=== PATIENT | female | born 1955 | race Caucasian/White ===

== ENCOUNTER 2017-02-14 12:28 | Inpatient (IN) | payer MEDICARE, BC ==
[2017-02-14] MEDS ORDERED: SODIUM CHLORIDE 0.9% 1,000 ML IV STA (12:52)
[2017-02-14] MEDS ORDERED: SODIUM CHLORIDE 0.9% 500 ML IV STA (12:52)
--- NOTE | 2017-02-14 13:21 | ED ---
General Adult HPI - General Chief complaint: Neuro Symptoms/Deficit Stated complaint: Slurred Speech Time Seen by Provider: 02/14/17 12:34 Source: EMS, RN notes reviewed, old records reviewed Mode of arrival: EMS Limitations: no limitations - History of Present Illness Initial comments: 61-year-old female to the ER for evaluation. This patient presents today for evaluation regarding slurred speech. Patient has medical history of seizure disorder and hypertension. Patient has not been feeling well all week denies fever no nausea or vomiting but patient has not been acting herself per staff of assisted living that she lives in. They stated patient had slurred speech and is near syncopal episode today and has had multiple episodes during the past week of falls. Patient denies any injury or trauma from falls. Denies any pain. Patient stated this point her slurred speech seems to be improved. Patient denies any complaints no recent change in medications - Related Data Home Medications Medication Instructions Recorded Confirmed Black Cohosh 160 mg PO DAILY 02/14/17 02/14/17 Cholecalciferol (Vitamin D3) 2,000 unit PO DAILY 02/14/17 02/14/17 [Vitamin D3] Clopidogrel Bisulfate [Plavix] 75 mg PO DAILY 02/14/17 02/14/17 FLUoxetine HCL [PROzac] 40 mg PO DAILY 02/14/17 02/14/17 Furosemide [Lasix] 40 mg PO DAILY 02/14/17 02/14/17 Hydrocodone/Acetaminophen [[place] 1 tab PO TID PRN 02/14/17 02/14/17 7.5-325] Isosorbide Mononitrate ER [Imdur] 30 mg PO DAILY 02/14/17 02/14/17 Lisinopril [Prinivil] 10 mg PO DAILY 02/14/17 02/14/17 Potassium Chloride [Klor-Con 20] 20 meq PO DAILY 02/14/17 02/14/17 QUEtiapine [SEROquel] 100 mg PO HS 02/14/17 02/14/17 Simvastatin [Zocor] 80 mg PO HS 02/14/17 02/14/17 Solifenacin Succinate [Vesicare] 10 mg PO DAILY 02/14/17 02/14/17 carBAMazepine [TEGretol] 300 mg PO TID 02/14/17 02/14/17 risperiDONE [RisperDAL] 2 mg PO BID 02/14/17 02/14/17 Allergies Allergy/AdvReac Type Severity Reaction Status Date / Time grapefruit AdvReac Itching Verified 02/14/17 13:41 Penicillins AdvReac Itching Verified 02/14/17 13:41 Review of Systems ROS Statement: Those systems with pertinent positive or pertinent negative responses have been documented in the HPI. ROS Other: All systems not noted in ROS Statement are negative. Past Medical History Past Medical History: Hypertension, Seizure Disorder History of Any Multi-Drug Resistant Organisms: None Reported Past Surgical History: No Surgical Hx Reported Past Psychological History: Bipolar, Depression, Schizophrenia Smoking Status: Current every day smoker Past Alcohol Use History: None Reported Past Drug Use History: None Reported General Exam - General Exam Comments Initial Comments: NIH of 2, lower extremity weakness bilateral Limitations: no limitations General appearance: alert, in no apparent distress Head exam: Present: atraumatic, normocephalic, normal inspection Eye exam: Present: normal appearance, PERRL, EOMI. Absent: scleral icterus, conjunctival injection, periorbital swelling ENT exam: Present: normal exam, mucous membranes moist Neck exam: Present: normal inspection. Absent: tenderness, meningismus, lymphadenopathy Respiratory exam: Present: normal lung sounds bilaterally. Absent: respiratory distress, wheezes, rales, rhonchi, stridor Cardiovascular Exam: Present: regular rate, normal rhythm, normal heart sounds. Absent: systolic murmur, diastolic murmur, rubs, gallop, clicks GI/Abdominal exam: Present: soft, normal bowel sounds. Absent: distended, tenderness, guarding, rebound, rigid Extremities exam: Present: normal inspection, full ROM, normal capillary refill. Absent: tenderness, pedal edema, joint swelling, calf tenderness Back exam: Present: normal inspection Neurological exam: Present: alert, oriented X3, CN II-XII intact Psychiatric exam: Present: normal affect, normal mood Skin exam: Present: warm, dry, intact, normal color. Absent: rash Course Vital Signs 02/14/17 12:32 Temperature 98.4 F Pulse Rate 77 Respiratory 20 Rate Blood Pressure 165/83 O2 Sat by Pulse 100 Oximetry - Reevaluation(s) Reevaluation #1: 02/14/17 14:55 Patient's slurred speech has been resolved throughout ER stay. Patient was persistent deficit lower extremities. Reevaluation #2: 02/14/17 14:55 Boquist family regarding patient, questions are answered EKG Findings - EKG Comments: EKG Findings:: EKG shows normal sinus rhythm rate 67, SC 146, QRS 78, QTC 481 Medical Decision Making - Medical Decision Making 61. The evaluation. Patient coming in for weakness fall slurred speech today. Patient's slurred speech at this time appears to be improved. Will be admitted for CVA - Lab Data Result diagrams: 02/14/17 13:16 02/14/17 13:16 Lab Results 02/14/17 02/14/17 02/14/17 Range/Units 13:16 13:16 13:16 WBC 3.4 L (3.8-10.6) k/uL RBC 4.27 (3.80-5.40) m/uL Hgb 12.8 (11.4-16.0) gm/dL Hct 40.1 (34.0-46.0) % MCV 94.1 (80.0-100.0) fL MCH 30.0 (25.0-35.0) pg MCHC 31.9 (31.0-37.0) g/dL RDW 13.8 (11.5-15.5) % Plt Count 145 L (150-450) k/uL Neutrophils % 49 % Lymphocytes % 38 % Monocytes % 9 % Eosinophils % 1 % Basophils % 0 % Neutrophils # 1.7 (1.3-7.7) k/uL Lymphocytes # 1.3 (1.0-4.8) k/uL Monocytes # 0.3 (0-1.0) k/uL Eosinophils # 0.0 (0-0.7) k/uL Basophils # 0.0 (0-0.2) k/uL PT (9.0-12.0) sec INR (<1.2) APTT (22.0-30.0) sec Sodium 140 (137-145) mmol/L Potassium 4.8 (3.5-5.1) mmol/L Chloride 106 (98-107) mmol/L Carbon Dioxide 26 (22-30) mmol/L Anion Gap 8 mmol/L BUN 18 H (7-17) mg/dL Creatinine 0.90 (0.52-1.04) mg/dL Est GFR (MDRD) Af Amer >60 (>60 ml/min/1.73 sqM) Est GFR (MDRD) Non-Af >60 (>60 ml/min/1.73 sqM) Glucose 155 H (74-99) mg/dL Calcium 9.0 (8.4-10.2) mg/dL Phosphorus 3.5 (2.5-4.5) mg/dL Magnesium 1.9 (1.6-2.3) mg/dL Total Bilirubin 0.4 (0.2-1.3) mg/dL AST 20 (14-36) U/L ALT 37 (9-52) U/L Alkaline Phosphatase 96 (38-126) U/L Total Creatine Kinase 65 (30-135) U/L CK-MB (CK-2) 0.5 (0.0-2.4) ng/mL CK-MB (CK-2) Rel Index 0.8 Troponin I <0.012 (0.000-0.034) ng/mL Total Protein 6.7 (6.3-8.2) g/dL Albumin 3.7 (3.5-5.0) g/dL Urine Color Urine Appearance (Clear) Urine pH (5.0-8.0) Ur Specific [place] (1.001-1.035) Urine Protein (Negative) Urine Glucose (UA) (Negative) Urine Ketones (Negative) Urine Blood (Negative) Urine Nitrite (Negative) Urine Bilirubin (Negative) Urine Urobilinogen (<2.0) mg/dL Ur Leukocyte Esterase (Negative) Urine RBC (0-5) /hpf Urine WBC (0-5) /hpf Ur Squamous Epith Cells (0-4) /hpf Urine Bacteria (None) /hpf Hyaline Casts (0-2) /lpf Urine Mucus (None) /hpf 02/14/17 02/14/17 Range/Units 13:16 13:16 WBC (3.8-10.6) k/uL RBC (3.80-5.40) m/uL Hgb (11.4-16.0) gm/dL Hct (34.0-46.0) % MCV (80.0-100.0) fL MCH (25.0-35.0) pg MCHC (31.0-37.0) g/dL RDW (11.5-15.5) % Plt Count (150-450) k/uL Neutrophils % % Lymphocytes % % Monocytes % % Eosinophils % % Basophils % % Neutrophils # (1.3-7.7) k/uL Lymphocytes # (1.0-4.8) k/uL Monocytes # (0-1.0) k/uL Eosinophils # (0-0.7) k/uL Basophils # (0-0.2) k/uL PT 11.2 (9.0-12.0) sec INR 1.1 (<1.2) APTT 21.0 L (22.0-30.0) sec Sodium (137-145) mmol/L Potassium (3.5-5.1) mmol/L Chloride (98-107) mmol/L Carbon Dioxide (22-30) mmol/L Anion Gap mmol/L BUN (7-17) mg/dL Creatinine (0.52-1.04) mg/dL Est GFR (MDRD) Af Amer (>60 ml/min/1.73 sqM) Est GFR (MDRD) Non-Af (>60 ml/min/1.73 sqM) Glucose (74-99) mg/dL Calcium (8.4-10.2) mg/dL Phosphorus (2.5-4.5) mg/dL Magnesium (1.6-2.3) mg/dL Total Bilirubin (0.2-1.3) mg/dL AST (14-36) U/L ALT (9-52) U/L Alkaline Phosphatase (38-126) U/L Total Creatine Kinase (30-135) U/L CK-MB (CK-2) (0.0-2.4) ng/mL CK-MB (CK-2) Rel Index Troponin I (0.000-0.034) ng/mL Total Protein (6.3-8.2) g/dL Albumin (3.5-5.0) g/dL Urine Color Light Yellow Urine Appearance Clear (Clear) Urine pH 6.5 (5.0-8.0) Ur Specific [place] 1.004 (1.001-1.035) Urine Protein Negative (Negative) Urine Glucose (UA) Negative (Negative) Urine Ketones Negative (Negative) Urine Blood Negative (Negative) Urine Nitrite Positive H (Negative) Urine Bilirubin Negative (Negative) Urine Urobilinogen <2.0 (<2.0) mg/dL Ur Leukocyte Esterase Negative (Negative) Urine RBC <1 (0-5) /hpf Urine WBC 2 (0-5) /hpf Ur Squamous Epith Cells <1 (0-4) /hpf Urine Bacteria Occasional H (None) /hpf Hyaline Casts 1 (0-2) /lpf Urine Mucus Rare H (None) /hpf - Radiology Data Radiology results: report reviewed (DT brain is negative for acute disease, chest x-ray is negative for acute injury), image reviewed Disposition Clinical Impression: Cerebrovascular accident, Weakness, Debility Disposition: ADMITTED IP TO THIS HOSP Condition: Good Referrals: Guido Duron MD [Primary Care Provider] - 1-2 days
[2017-02-14 13:33] LABS: Basophils % (A) 0 %; CH 30.3; CHCM 32.3; Eosinophils % (A) 1 %; HCT 40.1 % (34.0-46.0); HDW 1.99; HGB 12.8 gm/dL (11.4-16.0); Luc % (Auto) 3; Lymphocytes # (A) 1.3 k/uL (1.0-4.8); Lymphocytes % (A) 38 %; MCHC 31.9 g/dL (31.0-37.0); MCV 94.1 fL (80.0-100.0); Mean Platelet Volume 9.3; Monocytes # (A) 0.3 k/uL (0-1.0); Monocytes % (A) 9 %; Neutrophils # (A) 1.7 k/uL (1.3-7.7); Neutrophils % (A) 49 %; RBC 4.27 m/uL (3.80-5.40); RDW 13.8 % (11.5-15.5); WBC 3.4 k/uL (3.8-10.6); WBC (Perox) 3.31
[2017-02-14 13:37] LABS: Appearance,Urine Clear (Clear); Bacteria,Urine Occasional /hpf; Bilirubin,Urine Negative (Negative); Glucose,Urine (UA) Negative (Negative); Ketones,Urine Negative (Negative); Leukocyte Esterase,Urine Negative (Negative); Mucus,Urine Rare /hpf; Nitrite,Urine Positive (Negative); PH, Urine 6.5 (5.0-8.0); Particle Count 15934; Protein,Urine Negative (Negative); RBC,Urine <1 /hpf (0-5); Specific Gravity,Urine 1.004 (1.001-1.035); Squamous Epithelial Cell,Urine <1 /hpf (0-4); UA Billing (MACRO vs. MICRO) MICRO; Urobilinogen,Urine <2.0 mg/dL (<2.0); WBC,Urine 2 /hpf (0-5)
[2017-02-14 13:38] LABS: ALT 37 U/L (9-52); AST 20 U/L (14-36); Alkaline Phosphatase 96 U/L (38-126); Anion Gap 8 mmol/L; Blood Urea Nitrogen 18 mg/dL (7-17); Carbon Dioxide 26 mmol/L (22-30); Chloride 106 mmol/L (98-107); Glucose 155 mg/dL (74-99); Magnesium 1.9 mg/dL (1.6-2.3); Non-African American GFR(MDRD) >60 (>60 ml/min/1.73 sqM); Phosphorus 3.5 mg/dL (2.5-4.5); Potassium 4.8 mmol/L (3.5-5.1); Sodium 140 mmol/L (137-145); Total Bilirubin 0.4 mg/dL (0.2-1.3); Total Protein 6.7 g/dL (6.3-8.2)
[2017-02-14 13:41] LABS: INR 1.1 (<1.2); Prothrombin Time 11.2 sec (9.0-12.0)
[2017-02-14 13:46] LABS: Creatine Kinase 65 U/L (30-135)
[2017-02-14 13:57] LABS: Creatine Kinase MB 0.5 ng/mL (0.0-2.4); Troponin I <0.012 ng/mL (0.000-0.034)
--- NOTE | 2017-02-14 14:14 | CT ---
EXAMINATION TYPE: CT brain wo con DATE OF EXAM: 02/14/2017 COMPARISON: NONE INDICATION: Slurred speech DLP: 1121 mGycm, Automated exposure control for dose reduction was used. CONTRAST: None CT of the brain is performed utilizing 3 mm thick sections through the posterior fossa and 3 mm thick sections through the remaining calvarium. Study is performed within 24 hours of arrival to the hosp ital. No abnormal hyperdensity is present to suggest an acute intracranial hemorrhage. No mass lesion is evident. No acute infarcts are evident. Mild periventricular white matter hypodensity is present, most likely on the basis of chronic white matter ischemic changes. Ventricles and sulci are appropriate for the patient age. Minimal mucosal thickening is within the left sphenoid sinus. Remaining paranasal sinuses are clear. Hyperostosis frontalis internus is present. Mastoid air cells are clear IMPRESSIONS: 1. Mild age-related atrophy with periventricular white matter ischemic changes
[2017-02-14] MEDS ORDERED: ASPIRIN 325 MG TAB PO STA (14:56)
[2017-02-14] MEDS: SODIUM CHLORIDE 0.9% 1,000 ML IV SCH (16:27)
--- NOTE | 2017-02-14 16:32 | US ---
EXAMINATION TYPE: US carotid duplex BILAT DATE OF EXAM: 02/14/2017 COMPARISON: NONE CLINICAL HISTORY: Stenosis. Slurred speech EXAM MEASUREMENTS: RIGHT: Peak Systolic Velocity (PSV) cm/sec ----- Right CCA: 52.6 ----- Right ICA: 48.2 ----- Right ECA: 92.4 ICA/CCA ratio: 0.9 RIGHT: End Diastole cm/sec ----- Right CCA: 13.8 ----- Right ICA: 16.9 ----- Right ECA: 7.6 LEFT: Peak Systolic Velocity (PSV) cm/sec ----- Left CCA: 59.3 ----- Left ICA: 62.7 ----- Left ECA: 51.4 ICA/CCA ratio: 1.1 LEFT: End Diastole cm/sec ----- Left CCA: 18.2 ----- Left ICA: 27.4 ----- Left ECA: 51.4 VERTEBRALS (direction of flow): Right Vertebral: Antegrade Left Vertebral: Antegrade Rhythm: Normal Left wall thickening. No significant stenosis or elevated velocities. Plaque seen in bilateral bulb s and left CCA. Suboptimal exam due to patient body habitus IMPRESSION: 1. Intimal thickening present on the left. No significant flow-limiting stenosis evident. 2. No significant flow-limiting stenosis right carotid system. Atheromatous plaquing is present on th e right. Criteria for Assigning % of Stenosis / Diameter reduction (Estimation based on the indirect measurements of the internal carotid artery velocities (ICA PSV). 1. Normal (no stenosis)=ICA PSV < 125 cm/s: ratio < 2.0: ICA EDV<40 cm/s. 2. Less than 50% stenosis=ICA PSV < 125 cm/s: ratio < 2.0: ICA EDV<40 cm/s. 3. 50 to 69% stenosis=ICA PSV of 125 to 230 cm/s: ration 2.0 ? 4.0: ICA EDV 40-100 cm/s. 4. Greater than 70% stenosis to near occlusion= ICA PSV > 230 cm/s: ratio > 4.0: ICA EDV > 100 cm/s. 5. Near occlusion= ICA PSV velocities may be low or undetectable: variable ratio and ICA EDV. 6. Total occlusion=unable to detect flow.
[2017-02-14 18:44] VITALS: BMI 53.4
--- NOTE | 2017-02-14 19:41 | ECHOF ---
Referral Reason:Thrombus MEASUREMENTS -------- HEIGHT: 160.0 cm WEIGHT: 137.0 kg BP: 142/71 RVIDd: 2.8 cm (< 3.3) IVSd: 1.2 cm (0.6 - 1.1) LVIDd: 4.2 cm (3.9 - 5.3) LVPWd: 1.1 cm (0.6 - 1.1) IVSs: 1.5 cm LVIDs: 3.2 cm LVPWs: 1.3 cm LAESV Index (A-L): 16.83 ml/m Ao Diam: 3.1 cm (2.0 - 3.7) AV Cusp: 1.7 cm (1.5 - 2.6) LA Diam: 4.0 cm (2.7 - 3.8) MV EXCURSION: 14.230 mm (> 18.000) MV EF SLOPE: 87 mm/s (70 - 150) EPSS: 1.8 cm MV E José: 0.64 m/s MV DecT: 216 ms MV A José: 0.76 m/s MV E/A Ratio: 0.84 RAP: 5.00 mmHg RVSP: 10.02 mmHg FINDINGS -------- Sinus rhythm. This was a technically adequate study. The left ventricular size is normal. There is mild concentric left ventricular hypertrophy. Overall left ventricular systolic function is mildly impaired with, an EF between 45 - 50 %. Basal lateral LV wall motion is hypokinetic. Basal inferior LV wall motion is hypokinetic. Mid lateral LV wall motion is hypokinetic. Mid inferior LV wall motion is hypokinetic. The right ventricle is normal in size and function. Normal LA size by volume 22+/-6 ml/m2. The right atrium is normal in size. There is mild aortic valve sclerosis. There is no evidence of aortic regurgitation. The mitral valve is normal. There is trace mitral regurgitation. Trace tricuspid regurgitation present. Right ventricular systolic pressure is normal at < 35 mmHg. There is no evidence of pulmonary hypertension. The pulmonic valve was not well visualized. There is no pulmonic regurgitation present. The aortic root size is normal. IVC Not well visulized. There is no pericardial effusion. CONCLUSIONS -------- 1. Sinus rhythm. 2. There is mild aortic valve sclerosis. 3. There is trace mitral regurgitation. 4. Trace tricuspid regurgitation present. 5. Right ventricular systolic pressure is normal at < 35 mmHg. 6. The pulmonic valve was not well visualized. 7. There is no pulmonic regurgitation present. 8. The aortic root size is normal. 9. IVC Not well visulized. 10. There is no pericardial effusion. 11. This was a technically adequate study. 12. There is mild concentric left ventricular hypertrophy. 13. Overall left ventricular systolic function is mildly impaired with, an EF between 45 - 50 %. 14. Basal lateral LV wall motion is hypokinetic. 15. Basal inferior LV wall motion is hypokinetic. 16. Mid lateral LV wall motion is hypokinetic. 17. Mid inferior LV wall motion is hypokinetic. 18. Normal LA size by volume 22+/-6 ml/m2. PANEL MACHINE OPERATOR: Bebeto Knapp RDCS
[2017-02-14] MEDS: carBAMazepine 200 MG TAB PO SCH (22:11)
--- NOTE | 2017-02-14 22:33 | HP ---
HISTORY AND PHYSICAL DATE OF ADMISSION: 02/14/2017 PRESENTING COMPLAINT: Slurred speech. HISTORY OF PRESENTING COMPLAINT: This is a 61-year-old patient followed by a visiting physician, Dr. Duron. Chronic stable medical conditions include hypertension, hyperlipidemia, GA, seizures x1, coronary artery disease with stent several years ago, bipolar disorder. Patient does use a walker to get about. The patient lives in a nursing home. The patient this morning woke up, found her speech to be slurred, had slight weakness on the right arm and right leg, says over the course of the day, symptoms are greatly resolved, nearly back to herself. Initial CT scan was unremarkable. No trouble swallowing. No headache. No double vision. REVIEW OF SYSTEMS: CONSTITUTIONAL: Tired. HEENT: None. RESPIRATORY: None. CARDIOVASCULAR: None. GASTROINTESTINAL: None. GENITOURINARY: None. MUSCULOSKELETAL: None. DERMATOLOGICAL: None. HEMATOLOGIC: None. LYMPHATIC: None. PSYCHIATRY: Bipolar, controlled. NEUROLOGICAL: As above. PAST HISTORY: Hypertension, hyperlipidemia, seizure disorder, coronary artery disease with stent, bipolar, gait dysfunction, uses a walker. PAST SURGICAL HISTORY: No surgical history. SOCIAL HISTORY: The patient is a smoker. Lives in a nursing home. No alcohol. FAMILY HISTORY: Reviewed, noncontributory to presentation. HOME MEDICATIONS: 1. Prinivil 10 mg p.o. daily. 2. Imdur ER 30 mg a day. 3. VESIcare 10 mg p.o. daily. 4. Seroquel 100 mg q.h.s. 5. Lasix 40 mg p.o. daily. 6. Plavix 75 mg p.o. daily. 7. Tegretol 300 mg p.o. b.i.d. 8. Vitamin D3 2000 units p.o. daily. 9. Risperdal 2 mg p.o. b.i.d. 10.Zocor 80 mg q.h.s. 11.[place] 7.5, 1 tablet p.o. t.i.d. p.r.n. 12.Potassium 20 mEq p.o. daily. 13.Prozac 40 mg p.o. daily. ALLERGIES: and PENICILLIN. EXAMINATION: Temperature 98.4, pulse 77, respirations 20, blood pressure 165/83, pulse ox 100% on room air. GENERAL APPEARANCE: Morbidly obese, BMI of 53.5. Lying in bed. EYES: Pupils equal. Conjunctivae normal. HEENT: Oral cavity normal. NECK: Short, thick. JVD unable to assess. Mass not palpable. RESPIRATORY: Effort normal. LUNGS: Distant breath sounds. CARDIOVASCULAR: Heart sounds muffled. No edema. ABDOMEN: Soft, nontender. Liver and spleen not palpable. LYMPHATIC: No lymph node palpable in neck or axillae. PSYCHIATRY: Alert and oriented x3. Mood and affect normal. NEUROLOGICAL: Pupils equal. Cranial nerve grossly intact. Power and sensation grossly intact. INVESTIGATIONS: White count 3.4 hemoglobin 12.8, platelets 145. Potassium 4.8, BUN 18, creatinine 0.90. CT scan of the brain showed age-related atrophy, nil acute. EKG: Normal sinus rhythm. Carotid Doppler: No significant stenosis. Two-D echo: EF of 45% to 50%. Base lateral LV wall motion hypokinetic. Some of the amaro are hypokinetic, too. ASSESSMENT: 1. Transient ischemic attack in a right-handed patient with symptoms greatly improved. 2. Morbid obesity, body mass index of 53.5. 3. Essential hypertension. 4. Hyperlipidemia. 5. Coronary artery disease with prior history of stent. 6. Seizure disorder. 7. Bipolar disorder. 8. Gait dysfunction, uses a walker. PLAN: Patient is already on antiplatelet agents. Will change the Zocor to Lipitor, which has a better biochemical profile, interactive profile. Other home medications will be resumed. Neuro checks are in place. Lovenox for DVT prophylaxis. Care was discussed with the patient. MMODL / IJN: [id number] /
[2017-02-14] MEDS: HYDROcodone/APAP 7.5-325MG 1 EACH TAB PO PRN (22:59)
[2017-02-15] MEDS: SODIUM CHLORIDE 0.9% 1,000 ML IV SCH ×3 (01:00→19:32)
--- NOTE | 2017-02-15 01:17 | P.CNNES ---
History of Present Illness Consult date: 02/14/17 Reason for Consult: Patient admitted with slurred speech and possible TIA. History of Present Illness: This patient is a 61-year-old right-handed obese -[place] female who was brought into the emergency room today for evaluation of episode of slurred speech. The patient resides at a pen[facility] in [place] and apparently the nursing staff noted today that she was slurring her speech. Apparently that started yesterday evening. Patient states that her speech was very garbled and she was also shaky and tremulous involving all of her extremities. She normally ambulates with the use of a walker at the penitentiary but was feeling very weak yesterday. This morning the nursing staff found that she was still showing signs of garbled speech. Apparently she has had sustained 2 or 3 falls earlier in the week of unknown etiology. Overall these reasons EMS was called to the penitentiary and she was advised to go directly to the emergency room for further evaluation. She was taken by EMS [facility] where she was evaluated. She was seen in the ER today by Dr. Omega cooley. She was sent for a computed tomography scan of the brain which revealed mild age- related atrophy and periventricular white matter ischemic changes. Was no evidence of acute stroke. She also underwent a carotid Doppler ultrasound which failed to reveal any significant carotid artery stenosis. There was some plaquing noted in the right carotid system. The patient denies any previous history of stroke. She does have a history of having suffered a myocardial infarction about 10 years ago. She states she did have one stent placement as well. She is taking Plavix on a regular basis for cardio protection. Patient also has a remote history of seizure disorder. She has been taking Tegretol 300 mg 3 times a day for her primary anticonvulsant therapy. Her Tegretol level was not checked in the ER. We will order a serum carbamazepine blood level to be done tomorrow morning for review. Patient states she has been taking Tegretol for years. She is not sure when she was initially diagnosed with seizure disorder but it has been many years back. She has now been admitted and neurology has been consulted for further evaluation and recommendations. Review of Systems Constitutional: Denies chills, Denies fever Eyes: denies blurred vision, denies pain Ears, nose, mouth and throat: Denies headache, Denies sore throat Cardiovascular: Denies chest pain, Denies shortness of breath Respiratory: Denies cough Gastrointestinal: Denies abdominal pain, Denies diarrhea, Denies nausea, Denies vomiting Genitourinary: Denies dysuria, Denies hematuria Musculoskeletal: Denies myalgias Integumentary: Reports as per HPI Neurological: Reports change in speech, Reports confusion, Reports headaches, Reports memory loss, Reports motor disturbance, Reports tingling, Denies numbness, Denies weakness Psychiatric: Reports memory loss, Denies anxiety, Denies depression Endocrine: Denies fatigue, Denies weight change Past Medical History Past Medical History: Hyperlipidemia, Hypertension, Myocardial Infarction (MT), Seizure Disorder, Thyroid Disorder Additional Past Medical History / Comment(s): heart stent x1 Last Myocardial Infarction Date:: N/A History of Any Multi-Drug Resistant Organisms: None Reported Past Surgical History: No Surgical Hx Reported Past Anesthesia/Blood Transfusion Reactions: No Reported Reaction Past Psychological History: Bipolar, Depression, Schizophrenia Smoking Status: Current every day smoker Past Alcohol Use History: None Reported Past Drug Use History: None Reported - Past Family History Mother Additional Family Medical History / Comment(s): in sleep Medications and Allergies Home Medications Medication Instructions Recorded Confirmed Type Black Cohosh 160 mg PO DAILY 02/14/17 02/14/17 History Cholecalciferol (Vitamin D3) 2,000 unit PO DAILY 02/14/17 02/14/17 History [Vitamin D3] Clopidogrel Bisulfate [Plavix] 75 mg PO DAILY 02/14/17 02/14/17 History FLUoxetine HCL [PROzac] 40 mg PO DAILY 02/14/17 02/14/17 History Furosemide [Lasix] 40 mg PO DAILY 02/14/17 02/14/17 History Hydrocodone/Acetaminophen [[place] 1 tab PO TID PRN 02/14/17 02/14/17 History 7.5-325] Isosorbide Mononitrate ER [Imdur] 30 mg PO DAILY 02/14/17 02/14/17 History Lisinopril [Prinivil] 10 mg PO DAILY 02/14/17 02/14/17 History Potassium Chloride [Klor-Con 20] 20 meq PO DAILY 02/14/17 02/14/17 History QUEtiapine [SEROquel] 100 mg PO HS 02/14/17 02/14/17 History Simvastatin [Zocor] 80 mg PO HS 02/14/17 02/14/17 History Solifenacin Succinate [Vesicare] 10 mg PO DAILY 02/14/17 02/14/17 History carBAMazepine [TEGretol] 300 mg PO TID 02/14/17 02/14/17 History risperiDONE [RisperDAL] 2 mg PO BID 02/14/17 02/14/17 History Allergies Allergy/AdvReac Type Severity Reaction Status Date / Time grapefruit AdvReac Itching Verified 02/14/17 13:41 Penicillins AdvReac Itching Verified 02/14/17 13:41 Physical Examination - Vital Signs Vital Signs: Vital Signs Temp Pulse Pulse Resp BP BP Pulse Ox 02/14/17 20:00 78 18 02/14/17 17:57 72 16 110/61 99 02/14/17 16:57 97.6 F 66 16 149/73 99 02/14/17 16:30 73 18 142/71 97 02/14/17 15:55 97.3 F L 66 16 149/73 100 02/14/17 12:32 98.4 F 77 20 165/83 100 Intake and Output 02/14/17 02/14/17 02/14/17 06:59 14:59 22:59 Intake Total 480 Balance 480 Intake: Oral 480 Other: Voiding Method Toilet Incontinent # Voids 1 Weight 136.985 kg 136.985 kg Patient Weight 02/15/17 06:59 Weight 136.985 kg - Constitutional General appearance: average body habitus, cooperative - EENT EENT: PERRL, mucous membranes moist - Respiratory Respiratory: lungs clear, normal breath sounds - Cardiovascular Cardiovascular: regular rate, normal S1, normal S2 Extremities: no peripheral edema bilaterally - Gastrointestinal Gastrointestinal: normoactive bowel sounds - Integumentary Integumentary: normal - Neurologic Cranial nerve examination: PERRL, EOMI, VFF, V1/V2/V3 grossly intact, face symmetric, tongue midline, intact gag reflex, intact vestibulo-ocular reflex, intact corneal reflex, normal palatal elevation Speech examination: intact Sensorimotor examination: intact Motor examination - right side: 4/5: biceps, triceps, wrist flexion, wrist extension, professor of kinesiology, hip flexors, knee extensors, dorsiflexion, toe extension (EHL) , plantarflexion Motor examination - left side: 4/5: biceps, triceps, wrist flexion, wrist extension, professor of kinesiology, hip flexors, knee extensors, dorsiflexion, toe extension (EHL) , plantarflexion Detailed sensory examination: intact Reflex and gait examination: intact Reflexes: 1+: ankle, bicep, knee, tricep - Musculoskeletal Musculoskeletal: no pain - Psychiatric Psychiatric: mood/affect appropriate, cooperative Results - Laboratory Findings CBC and BMP: 02/14/17 13:16 02/14/17 13:16 Abnormal Lab Findings: Abnormal Labs 02/14/17 02/14/17 02/14/17 13:16 13:16 13:16 WBC 3.4 L Plt Count 145 L APTT 21.0 L BUN 18 H Glucose 155 H Urine Nitrite Urine Bacteria Urine Mucus 02/14/17 13:16 WBC Plt Count APTT BUN Glucose Urine Nitrite Positive H Urine Bacteria Occasional H Urine Mucus Rare H Assessment and Plan (1) TIA (transient ischemic attack) Current Visit: Yes Status: Acute SNOMED Code(s): 504196152 (2) Expressive aphasia Current Visit: Yes Status: Acute SNOMED Code(s): 299496214 (3) Seizure disorder Current Visit: Yes Status: Acute SNOMED Code(s): 743181602 (4) Hyperlipidemia Current Visit: Yes Status: Acute SNOMED Code(s): 69614506 (5) Debility Current Visit: Yes Status: Acute SNOMED Code(s): 21800903 (6) Weakness Current Visit: Yes Status: Acute SNOMED Code(s): 30477386 Plan: This patient is a 61-year-old obese female who was brought into the emergency room today for evaluation of episode of expressive aphasia and generalized weakness. Patient resides at a penitentiary in [place] nursing staff notices a change today and recommended she go immediately to the emergency room for evaluation. Patient underwent a computed tomography scan of the brain which failed to reveal any acute changes. There was mild age-related atrophy and periventricular white matter ischemic changes noted. Patient denies any previous history of TIA or stroke. She does suffer from underlying seizure disorder for which she has been using carbamazepine. We have recommended carbamazepine blood level to be done tomorrow morning as well as a routine EEG for further evaluation. This patient's clinical history suggests possibility of a left hemispheric TIA with significant improvement in her speech since admission to the hospital. We have recommended a complete stroke evaluation for the patient. Her overall prognosis at this time remains very guarded. Time with Patient: Greater than 30
[2017-02-15 07:47] LABS: Carbamazepine (Tegretol) 9.7 ug/mL
[2017-02-15] MEDS: FUROSEMIDE 40 MG TAB PO SCH (08:41)
[2017-02-15] MEDS: carBAMazepine 200 MG TAB PO SCH ×3 (08:41→22:37)
[2017-02-15] MEDS: ENOXAPARIN 40 MG/0.4 ML SYRINGE SQ SCH (08:41)
[2017-02-15] MEDS: FLUoxetine HCL 20 MG CAP PO SCH (08:41)
[2017-02-15] MEDS: CLOPIDOGREL 75 MG TAB PO SCH (08:41)
[2017-02-15] MEDS: ISOSORBIDE MONONITRATE ER 30 MG TAB.ER.24H PO SCH (08:41)
[2017-02-15] MEDS: HYDROcodone/APAP 7.5-325MG 1 EACH TAB PO PRN (18:25)
[2017-02-15] MEDS: ATORVASTATIN 40 MG TAB PO SCH (18:25)
--- NOTE | 2017-02-15 18:28 | PN ---
PROGRESS NOTE DATE OF SERVICE: 02/15/2017 PRESENTING COMPLAINT: TIA. INTERVAL HISTORY: This patient presented with slurred speech, felt to be TIA, and some weakness of the right arm and leg. This has actually resolved. Lying in bed. Neurological workup by Dr. Szymanski is in place, pending EEG. Patient tolerated her diet. No further weakness. REVIEW OF SYSTEMS: Done for constitutional, cardiovascular, GI, pulmonary; relevant findings as above next. CURRENT MEDICATIONS: Reviewed. PHYSICAL EXAMINATION: Temperature 97.1, pulse 90, respirations 18, blood pressure 158/79, pulse ox 97% on room air. GENERAL APPEARANCE: Lying in bed, comfortable. HEENT: Pupils equal. NECK: JVD unable to assess. Mass not palpable. RESPIRATORY: Effort normal. LUNGS: Distant breath sounds. HEART: Sounds muffled. No edema. ABDOMEN: Soft, nontender. Liver and spleen not palpable. PSYCHIATRY: Alert and oriented x3. Mood and affect normal. NEUROLOGIC: Speech is good. No focal weakness. INVESTIGATIONS: LDL is 80. 2D echo, EF 45% to 50%. Hypokinetic amaro. ASSESSMENT: 1. Transient ischemic attack in a right-handed patient, symptoms greatly improved. 2. Morbid obesity. Body mass index 53.3. 3. Essential hypertension. 4. Hyperlipidemia. 5. Coronary artery disease, prior history of stent. 6. Seizure disorder. 7. Bipolar disorder. 8. Gait dysfunction, uses a walker. PLAN: Await EEG. Care was discussed with the patient. When cleared by Neurology, patient can go home. MMODL / IJN: [id number] /
[2017-02-16] MEDS: SODIUM CHLORIDE 0.9% 1,000 ML IV SCH ×2 (06:25→15:27)
[2017-02-16] MEDS: ISOSORBIDE MONONITRATE ER 30 MG TAB.ER.24H PO SCH (09:17)
[2017-02-16] MEDS: FUROSEMIDE 40 MG TAB PO SCH (09:17)
[2017-02-16] MEDS: ENOXAPARIN 40 MG/0.4 ML SYRINGE SQ SCH (09:18)
[2017-02-16] MEDS: CLOPIDOGREL 75 MG TAB PO SCH (09:18)
[2017-02-16] MEDS: ATORVASTATIN 40 MG TAB PO SCH (09:18)
[2017-02-16] MEDS: FLUoxetine HCL 20 MG CAP PO SCH (09:18)
[2017-02-16] MEDS: carBAMazepine 200 MG TAB PO SCH ×3 (09:19→21:36)
[2017-02-16] MEDS: CEFUROXIME 250 MG TAB PO SCH ×2 (11:08→21:37)
--- NOTE | 2017-02-16 11:10 | P.PN ---
Subjective Progress Note Date: 02/15/17 This patient is a 61-year-old female who is being evaluated for possibility of TIA versus stroke. She is to undergo a full stroke evaluation today. She seems to be doing fairly well with no major changes in her neurological findings from yesterday. The patient states that her right-sided arm weakness has improved since admission to the hospital. She states her speech is now back to baseline level of function. She does have a history of underlying seizure disorder and is currently taking Tegretol as her primary anticonvulsant medication. Her Tegretol level today came back therapeutic at 9.7. The patient denies any recurrent right-sided weakness or numbness. She denies any difficulty with her swallowing. We will continue her stroke workup at this time. Her overall prognosis remains guarded. Objective - Vital Signs Vital signs: Vital Signs Temp 97.1 F L 02/15/17 08:00 Pulse 81 02/15/17 08:00 Resp 18 02/15/17 08:00 BP 136/72 02/15/17 08:00 Pulse Ox 94 L 02/15/17 08:00 Intake & Output 02/14/17 02/15/17 02/15/17 18:59 06:59 18:59 Intake Total 1680 240 Balance 1680 240 Weight 136.985 kg 138.4 kg Intake: IV 1200 Sodium Chloride 0.9% 1, 1200 000 ml @ 100 mls/hr IV . Q10H [facility] Rx#:[id number] Oral 480 240 Other: Voiding Method Incontinent Toilet Toilet Incontinent Incontinent # Voids 1 1 - Exam Physical examination: PHYSICAL EXAMINATION: Patient is resting comfortably in bed. VITAL SIGNS: Blood pressure is [142/91]. Heart rate is [100]. Respiration is [18 ]. Temperature is [97.5]. HEENT: Head is atraumatic, neck is supple, there were no carotid bruits. CHEST: Lungs are clear to auscultation and percussion. CARDIAC: S1, S2 normal rate and rhythm. There is no murmur. ABDOMEN: Soft and nontender. Bowel sounds are present. EXTREMITIES: There is no pedal edema. Peripheral pulses are present. Neurological examination: Patient's neurological examination is unchanged from yesterday. She has no evidence for right-sided weakness or paresthesias. - Labs CBC & Chem 7: 02/14/17 13:16 02/14/17 13:16 Labs: Abnormal Lab Results - Last 24 Hours (Table) 02/14/17 02/14/17 02/14/17 Range/Units 13:16 13:16 13:16 WBC 3.4 L (3.8-10.6) k/uL Plt Count 145 L (150-450) k/uL APTT 21.0 L (22.0-30.0) sec BUN 18 H (7-17) mg/dL Glucose 155 H (74-99) mg/dL HDL Cholesterol (40-60) mg/dL Urine Nitrite (Negative) Urine Bacteria (None) /hpf Urine Mucus (None) /hpf 02/14/17 02/15/17 Range/Units 13:16 05:49 WBC (3.8-10.6) k/uL Plt Count (150-450) k/uL APTT (22.0-30.0) sec BUN (7-17) mg/dL Glucose (74-99) mg/dL HDL Cholesterol 64 H (40-60) mg/dL Urine Nitrite Positive H (Negative) Urine Bacteria Occasional H (None) /hpf Urine Mucus Rare H (None) /hpf Microbiology - Last 24 Hours (Table) 02/14/17 13:16 Urine Culture - Preliminary Urine,Voided Assessment and Plan (1) TIA (transient ischemic attack) Current Visit: Yes Status: Acute SNOMED Code(s): 371916675 (2) Expressive aphasia Current Visit: Yes Status: Acute SNOMED Code(s): 042420467 (3) Seizure disorder Current Visit: Yes Status: Acute SNOMED Code(s): 089081431 (4) Hyperlipidemia Current Visit: Yes Status: Acute SNOMED Code(s): 18096091 (5) Debility Current Visit: Yes Status: Acute SNOMED Code(s): 41788078 (6) Weakness Current Visit: Yes Status: Acute SNOMED Code(s): 90017871 Plan: This patient is a 61-year-old obese female who was brought into the emergency room today for evaluation of episode of expressive aphasia and generalized weakness. Patient resides at a snf in [place] nursing staff notices a change today and recommended she go immediately to the emergency room for evaluation. Patient underwent a computed tomography scan of the brain which failed to reveal any acute changes. There was mild age-related atrophy and periventricular white matter ischemic changes noted. Patient denies any previous history of TIA or stroke. She does suffer from underlying seizure disorder for which she has been using carbamazepine. We have recommended carbamazepine blood level to be done tomorrow morning as well as a routine EEG for further evaluation. This patient's clinical history suggests possibility of a left hemispheric TIA with significant improvement in her speech since admission to the hospital. The patient's symptoms of right-sided arm and leg weakness have completely resolved today. Her speech is also remained very clear with no evidence of aphasia. We did check her Tegretol level today which came back therapeutic at 9.7. This patient likely suffered an acute left hemispheric TIA. She is to continue on her current medications. We will continue close neurological follow-up for this patient during this admission. We have recommended a complete stroke evaluation for the patient. Her overall prognosis at this time remains very guarded.
[2017-02-16] MEDS: HYDROcodone/APAP 7.5-325MG 1 EACH TAB PO PRN (21:37)
--- NOTE | 2017-02-17 04:08 | PN ---
PROGRESS NOTE DATE OF SERVICE: February 16, 2017. PRESENTING COMPLAINT: TIA. INTERVAL HISTORY: This patient with slurred speech/TIA, weakness on right arm and leg which is all resolved. Neurological workup has been complete. Patient tolerating his diet. REVIEW OF SYSTEMS: Done for constitutional, cardiovascular, GI, pulmonary, neurological, relevant findings as above. CURRENT MEDICATIONS: Are reviewed that include Plavix. PHYSICAL EXAMINATION: Temperature 97.5, pulse 95, respiratory rate 15, blood pressure 124/74, pulse ox 95% on room air. GENERAL APPEARANCE: Lying in bed, comfortable. Eyes: Pupils equal. Conjunctivae normal. Neck JVD not raised. Mass not palpable. Respiratory effort lungs decreased, distant breath sounds. Cardiovascular heart sounds muffled. No edema. ABDOMEN: Soft, nontender. Liver and spleen not palpable. PSYCHIATRY: Alert and oriented x3. Mood and affect is normal. NEUROLOGICAL: Speech is back to normal. INVESTIGATIONS: LDL is 80. Urine culture growing E coli. ASSESSMENT: 1. Transient ischemic attack in a right-handed patient symptoms back to normal. 2. Morbid obesity. BMI 53.3. 3. Essential hypertension. 4. Hyperlipidemia. 5. Coronary artery disease with prior history of stent. 6. Seizure disorder. 7. Bipolar disorder. 8. Gait dysfunction, uses a walker. 9. Acute urinary tract infection from E coli. PLAN: Patient is cleared by Neurology to go home. There is a problem with the transport, will have to hold off discharge till tomorrow for that reason. MMODL / IJN: [id number] /
[2017-02-17] MEDS: SODIUM CHLORIDE 0.9% 1,000 ML IV SCH ×2 (04:18→08:21)
[2017-02-17] MEDS: carBAMazepine 200 MG TAB PO SCH (08:23)
[2017-02-17] MEDS: ENOXAPARIN 40 MG/0.4 ML SYRINGE SQ SCH (08:23)
[2017-02-17] MEDS: ISOSORBIDE MONONITRATE ER 30 MG TAB.ER.24H PO SCH (08:23)
[2017-02-17] MEDS: CLOPIDOGREL 75 MG TAB PO SCH (08:23)
[2017-02-17] MEDS: FUROSEMIDE 40 MG TAB PO SCH (08:23)
[2017-02-17] MEDS: CEFUROXIME 250 MG TAB PO SCH (08:23)
[2017-02-17] MEDS: FLUoxetine HCL 20 MG CAP PO SCH (08:24)
[2017-02-17] MEDS: ATORVASTATIN 40 MG TAB PO SCH (08:24)
[2017-02-17 10:29] VITALS: RESP 18
[2017-02-17 13:03] VITALS: BP 145/86; PULSE 96; TEMP 97.4
--- NOTE | 2017-02-17 14:23 | P.PN ---
Progress Note - Text Progress Note Date: 02/17/17 FINAL DIAGNOSES: -Transient ischemic attack in a right-handed patient symptoms back to normal. -Morbid obesity, BMI 53.3. -Essential hypertension. -Hyperlipidemia. -Coronary artery disease with prior history of stent. -Seizure disorder. -Bipolar disorder. -Gait dysfunction uses walker. -Acute urinary tract infection from E. coli. HOSPTIAL COURSE: 61-year-old female who lives in a senior living, woke up and was found to have slurred speech and weakness in her right arm and right leg, concerns for stroke. Patient was brought to the emergency department for further evaluation and admitted for the same. Head CT negative and carotid Doppler had no flow- limiting stenosis on the right although atheromatous plaque noted on the right. On the left no significant flow-limiting stenosis., At time of admission most of patient's symptoms had resolved. Home medications reordered, neurology consulted. EEG ordered. Neurology cleared the patient for discharge. Patient had no further TIA/stroke like symptoms. Tolerating her diet, ambulatory with the use of a walker to and from the bathroom, moving her bowels. Patient's condition is returned to baseline, and is stable for discharge back to the senior living. PHYSICAL EXAM: CARDIOVASCULAR: First and second sound noted no edema RESPIRATORY: Respiratory effort normal, distant breath sounds bilaterally GI: Abdomen soft nontender liver and spleen not palpable MUSKULOSKELETAL: Requires use a walker, PSYCHIATRY: Alert and oriented 3. Mood and affect appropriate for situation. Patient was seen and examined by nurse practitioner Emelia Kitchen in all elements of the case discussed with attending Dr. Anthony DISPOSITION: [facility].
--- NOTE | 2017-02-17 22:27 | P.DS ---
Providers Date of admission: 02/14/17 14:57 Expected date of discharge: 02/17/17 Attending physician: Michael Anthony Consults: 02/14/17 14:58 Consult Physician Routine Consulting Provider: Hannah Szymanski Consult Reason/Comments: cva Do you want consulting provider notified?: Yes Primary care physician: [facility] Course: FINAL DIAGNOSES: -Transient ischemic attack in a right-handed patient symptoms back to normal. -Morbid obesity, BMI 53.3. -Essential hypertension. -Hyperlipidemia. -Coronary artery disease with prior history of stent. -Seizure disorder. -Bipolar disorder. -Gait dysfunction uses walker. -Acute urinary tract infection from E. coli. HOSPTIAL COURSE: 61-year-old female who lives in a assisted, woke up and was found to have slurred speech and weakness in her right arm and right leg, concerns for stroke. Patient was brought to the emergency department for further evaluation and admitted for the same. Head CT negative and carotid Doppler had no flow- limiting stenosis on the right although atheromatous plaque noted on the right. On the left no significant flow-limiting stenosis., At time of admission most of patient's symptoms had resolved. Home medications reordered, neurology consulted. EEG ordered. Neurology cleared the patient for discharge. Patient had no further TIA/stroke like symptoms. Tolerating her diet, ambulatory with the use of a walker to and from the bathroom, moving her bowels. Patient's condition is returned to baseline, and is stable for discharge back to the assisted. PHYSICAL EXAM: CARDIOVASCULAR: First and second sound noted no edema RESPIRATORY: Respiratory effort normal, distant breath sounds bilaterally GI: Abdomen soft nontender liver and spleen not palpable MUSKULOSKELETAL: Requires use a walker, PSYCHIATRY: Alert and oriented 3. Mood and affect appropriate for situation. Patient was seen and examined by nurse practitioner Emelia Kitchen in all elements of the case discussed with attending Dr. Anthony DISPOSITION: Stable [facility] Patient Condition at Discharge: Stable Plan - Discharge Summary Discharge Rx Participant: No New Discharge Prescriptions: New Atorvastatin [Lipitor] 40 mg PO DAILY #30 tab Cefuroxime [Ceftin] 250 mg PO BID #6 tab Continue Lisinopril [Prinivil] 10 mg PO DAILY Isosorbide Mononitrate ER [Imdur] 30 mg PO DAILY Solifenacin Succinate [Vesicare] 10 mg PO DAILY QUEtiapine [SEROquel] 100 mg PO HS Furosemide [Lasix] 40 mg PO DAILY Clopidogrel Bisulfate [Plavix] 75 mg PO DAILY carBAMazepine [TEGretol] 300 mg PO TID Cholecalciferol (Vitamin D3) [Vitamin D3] 2,000 unit PO DAILY risperiDONE [RisperDAL] 2 mg PO BID Hydrocodone/Acetaminophen [[place] 7.5-325] 1 tab PO TID PRN PRN Reason: Pain Potassium Chloride [Klor-Con 20] 20 meq PO DAILY FLUoxetine HCL [PROzac] 40 mg PO DAILY Discontinued Simvastatin [Zocor] 80 mg PO HS No Action Black Cohosh 160 mg PO DAILY Discharge Medication List Black Cohosh 160 mg PO DAILY 02/14/17 [History] Cholecalciferol (Vitamin D3) [Vitamin D3] 2,000 unit PO DAILY 02/14/17 [History] Clopidogrel Bisulfate [Plavix] 75 mg PO DAILY 02/14/17 [History] FLUoxetine HCL [PROzac] 40 mg PO DAILY 02/14/17 [History] Furosemide [Lasix] 40 mg PO DAILY 02/14/17 [History] Hydrocodone/Acetaminophen [[place] 7.5-325] 1 tab PO TID PRN 02/14/17 [History] Isosorbide Mononitrate ER [Imdur] 30 mg PO DAILY 02/14/17 [History] Lisinopril [Prinivil] 10 mg PO DAILY 02/14/17 [History] Potassium Chloride [Klor-Con 20] 20 meq PO DAILY 02/14/17 [History] QUEtiapine [SEROquel] 100 mg PO HS 02/14/17 [History] Solifenacin Succinate [Vesicare] 10 mg PO DAILY 02/14/17 [History] carBAMazepine [TEGretol] 300 mg PO TID 02/14/17 [History] risperiDONE [RisperDAL] 2 mg PO BID 02/14/17 [History] Atorvastatin [Lipitor] 40 mg PO DAILY #30 tab 02/17/17 [Rx] Cefuroxime [Ceftin] 250 mg PO BID #6 tab 02/17/17 [Rx] Follow up Appointment(s)/Referral(s): Marianne Szymanski MD [STAFF PHYSICIAN] - 2 Weeks Guido Duron MD [Primary Care Provider] - 3 Days Patient Instructions/Handouts: Transient Ischemic Attack (DC) Activity/Diet/Wound Care/Special Instructions: dc ok with dr see Return home to [facility] [phone] Discharge Disposition: HOME SELF-CARE
--- NOTE | 2017-02-18 02:17 | P.PN ---
Subjective Progress Note Date: 02/16/17 This patient is a 61-year-old female who is being evaluated for possibility of TIA versus stroke. She is to undergo a full stroke evaluation today. She seems to be doing fairly well with no major changes in her neurological findings from yesterday. The patient states that her right-sided arm weakness has improved since admission to the hospital. She states her speech is now back to baseline level of function. She does have a history of underlying seizure disorder and is currently taking Tegretol as her primary anticonvulsant medication. Her Tegretol level today came back therapeutic at 9.7. The patient denies any recurrent right-sided weakness or numbness. She denies any difficulty with her swallowing. We will continue her stroke workup at this time. the patient is currently residing [facility] a [facility] and will most likely be able to return there. She has had no evidence of any seizure activity. She has had complete resolution of her initial TIA symptoms. We will continue to monitor her overall neurological status closely. Her overall prognosis remains guarded. Objective - Vital Signs Vital signs: Vital Signs Temp 97.5 F L 02/16/17 16:00 Pulse 95 02/16/17 16:00 Resp 15 02/16/17 16:00 BP 124/74 02/16/17 16:00 Pulse Ox 95 02/16/17 16:00 Intake & Output 02/15/17 02/16/17 02/16/17 18:59 06:59 18:59 Intake Total 582 1200 960 Output Total 1000 800 Balance -418 1200 160 Weight 139.3 kg Intake: IV 1200 Sodium Chloride 0.9% 1, 1200 000 ml @ 100 mls/hr IV . Q10H [facility] Rx#:[id number] Oral 582 960 Output: Urine 1000 800 Other: Voiding Method Toilet Toilet Toilet Incontinent Incontinent Incontinent # Voids 1 0 1 - Exam Physical examination: PHYSICAL EXAMINATION: Patient is resting comfortably in bed. VITAL SIGNS: Blood pressure is [124/74]. Heart rate is [95]. Respiration is [15] . Temperature is [97.5]. HEENT: Head is atraumatic, neck is supple, there were no carotid bruits. CHEST: Lungs are clear to auscultation and percussion. CARDIAC: S1, S2 normal rate and rhythm. There is no murmur. ABDOMEN: Soft and nontender. Bowel sounds are present. EXTREMITIES: There is no pedal edema. Peripheral pulses are present. Neurological examination: Patient's neurological examination is unchanged from yesterday. She has no evidence for right-sided weakness or paresthesias. - Labs CBC & Chem 7: 02/14/17 13:16 02/14/17 13:16 Labs: Microbiology - Last 24 Hours (Table) 02/14/17 13:16 Urine Culture - Preliminary Urine,Voided Gram Neg Bacilli Assessment and Plan (1) TIA (transient ischemic attack) Status: Acute SNOMED Code(s): 410835589 (2) Expressive aphasia Status: Acute SNOMED Code(s): 611839705 (3) Seizure disorder Status: Acute SNOMED Code(s): 311212116 (4) Hyperlipidemia Status: Acute SNOMED Code(s): 82372991 (5) Debility Status: Acute SNOMED Code(s): 35272014 (6) Weakness Status: Acute SNOMED Code(s): 41876776 Plan: This patient is a 61-year-old obese female who was brought into the emergency room today for evaluation of episode of expressive aphasia and generalized weakness. Patient resides at a [facility] in [place] nursing staff notices a change today and recommended she go immediately to the emergency room for evaluation. Patient underwent a computed tomography scan of the brain which failed to reveal any acute changes. There was mild age-related atrophy and periventricular white matter ischemic changes noted. Patient denies any previous history of TIA or stroke. She does suffer from underlying seizure disorder for which she has been using carbamazepine. We have recommended carbamazepine blood level to be done tomorrow morning as well as a routine EEG for further evaluation. This patient's clinical history suggests possibility of a left hemispheric TIA with significant improvement in her speech since admission to the hospital. The patient's symptoms of right-sided arm and leg weakness have completely resolved today. Her speech is also remained very clear with no evidence of aphasia. We did check her Tegretol level today which came back therapeutic at 9.7. This patient likely suffered an acute left hemispheric TIA. She is to continue on her current medications. We will continue close neurological follow-up for this patient during this admission. patient should follow up in the outpatient neurology clinic in 3-4 weeks following her discharge. the patient has had no further recurrence of TIA like symptoms. She is being considered for possible discharge home tomorrow. Her overall prognosis at this time remains very guarded.
--- NOTE | 2017-02-18 06:43 | DS ---
DISCHARGE SUMMARY DATE OF SERVICE: February 17, 2017 ATTENDING NOTE: This patient is seen and examined by me. I discussed with my nurse practitioner, Ms. Kitchen. Patient admitted with TIA. Back to her normal self. All other workup was negative. Cleared by Neurology to go home. EXAM: Lungs distant breath sounds. Cardiovascular heart 1st, 2nd sounds. Psych AO x3. DISPOSITION: To a jail. Follow up with Neurology. MMODL / IJN: [id number] /
--- NOTE | 2017-02-28 10:15 | EEG ---
ELECTROENCEPHALOGRAM REPORT DATE OF EE02/17/2017 REFERRING PHYSICIAN: Dr. Anthony. ELECTROENCEPHALOGRAPHIC EXAMINATION REPORT: INDICATION FOR EXAMINATION: This patient is a 61-year-old female being evaluated for episode of slurred speech and near syncope. Patient currently residing [place] [facility]. AGE: 61. EEG FINDINGS A routine 21 channel awake digital EEG recording was accomplished utilizing the 10 - 20 international system with bipolar and referential montages. The background activity in the most alert resting state consists of a low to medium amplitude, fairly well- developed and well-sustained 4 - 5 Hertz activity over the posterior head regions. This posterior rhythm attenuates minimally to eye opening. There is a small amount of low amplitude 18 - 20 Hz beta activity seen maximally over the anterior head regions. Muscle and movement artifact was observed on a few occasions during the tracing. Hyperventilation was not performed. Photic stimulation at flash frequencies of 2 - 30 Hz produced a minimal occipital driving response. No epileptiform discharges were seen. Towards the mid and lateral portion of the tracing there is an increase in motion artifact noted. IMPRESSION: This EEG is moderately abnormal in diffuse fashion due to slowing of the EEG background. The EEG failed to reveal any focal, lateralized, or epileptiform abnormalities. Clinical correlation is recommended. MMODL / IJN: [id number] /
== END 2017-02-17 14:17 | disposition home health service (06) | DRG 69 ==
LOC: EEVIPCON 12:28 → EC 12:28 → 6SEL 14:57
PROVIDERS: ADMIT Hospitalist; ATTEND Hospitalist
DX: G45.9 Transient cerebral ischemic attack, unspecified (principal); R47.01 Aphasia; I10 Essential (primary) hypertension; Z68.43 Body mass index [BMI] 50.0-59.9, adult; N39.0 Urinary tract infection, site not specified; E66.01 Morbid (severe) obesity due to excess calories; B96.20 Unspecified Escherichia coli [E. coli] as the cause of diseases classified elsewhere; F20.9 Schizophrenia, unspecified; E78.5 Hyperlipidemia, unspecified; I25.2 Old myocardial infarction; I25.10 Atherosclerotic heart disease of native coronary artery without angina pectoris; E07.9 Disorder of thyroid, unspecified; F31.9 Bipolar disorder, unspecified; G40.909 Epilepsy, unspecified, not intractable, without status epilepticus; R26.9 Unspecified abnormalities of gait and mobility; F17.200 Nicotine dependence, unspecified, uncomplicated; Z79.02 Long term (current) use of antithrombotics/antiplatelets; Z79.899 Other long term (current) drug therapy; Z95.5 Presence of coronary angioplasty implant and graft; Z88.0 Allergy status to penicillin; Z91.81 History of falling
CPT/HCPCS: 36415; 70450; 80053; 80061; 80156; 81001; 82550; 82553; 83735; 84100; 84484; 85025; 85610; 85730; 87077; 87086; 87186; 93005; 93306; 93880; 94760; 95816; 96360; 96361; 99285

== ENCOUNTER 2018-03-05 10:51 | Observation (INO) | payer MEDICARE, BC ==
--- NOTE | 2018-03-05 11:18 | ED ---
General Adult HPI - General Chief complaint: Syncope Stated complaint: near syncope Time Seen by Provider: 03/05/18 11:09 Source: patient, EMS, RN notes reviewed Mode of arrival: EMS Limitations: no limitations - History of Present Illness Initial comments: Patient is a pleasant 62-year-old female presenting to the emergency department with near syncopal episode. Episode occurred prior to arrival. Patient states she felt like she was about to pass out. Patient never lost consciousness. Patient does have a history of similar episodes approximately 5 or 6 times previously. Patient also has history of seizures. Patient denies confusion. No weakness. No chest pain. No dyspnea. No abdominal pain. - Related Data Home Medications Medication Instructions Recorded Confirmed Black Cohosh 160 mg PO DAILY 02/14/17 03/05/18 Cholecalciferol (Vitamin D3) 2,000 unit PO DAILY 02/14/17 03/05/18 [Vitamin D3] Clopidogrel Bisulfate [Plavix] 75 mg PO DAILY 02/14/17 03/05/18 Furosemide [Lasix] 40 mg PO DAILY 02/14/17 03/05/18 Hydrocodone/Acetaminophen [[place] 1 tab PO TID PRN 02/14/17 03/05/18 7.5-325] Isosorbide Mononitrate ER [Imdur] 30 mg PO DAILY 02/14/17 03/05/18 Potassium Chloride [Klor-Con 20] 20 meq PO DAILY 02/14/17 03/05/18 QUEtiapine [SEROquel] 100 mg PO HS 02/14/17 03/05/18 Solifenacin Succinate [Vesicare] 10 mg PO DAILY 02/14/17 03/05/18 carBAMazepine [TEGretol] 300 mg PO TID 02/14/17 03/05/18 risperiDONE [RisperDAL] 2 mg PO BID 02/14/17 03/05/18 Acetaminophen Tab [Tylenol Tab] 650 mg PO TID PRN 03/05/18 03/05/18 Albuterol Sulfate [Proair Hfa] 1 puff INHALATION RT-Q4H PRN 03/05/18 03/05/18 Atorvastatin [Lipitor] 40 mg PO HS 03/05/18 03/05/18 Cyanocobalamin (Vitamin B-12) 2,500 mcg PO DAILY 03/05/18 03/05/18 [Vitamin B12] Diclofenac Sodium Gel [Voltaren 4 gm TOPICAL QID 03/05/18 03/05/18 Gel] Diphenoxylate HCl/Atropine 1 tab PO TID PRN 03/05/18 03/05/18 [Lomotil 2.5-0.025 mg Tablet] Ibuprofen [Motrin] 800 mg PO Q6H PRN 03/05/18 03/05/18 Lisinopril 20 mg PO DAILY 03/05/18 03/05/18 Loratadine [Claritin] 10 mg PO DAILY 03/05/18 03/05/18 Metoprolol Tartrate [Lopressor] 25 mg PO BID 03/05/18 03/05/18 Sennosides [Senna] 8.6 mg PO BID PRN 03/05/18 03/05/18 Sertraline [Zoloft] 25 mg PO HS 03/05/18 03/05/18 Sertraline [Zoloft] 100 mg PO DAILY 03/05/18 03/05/18 metFORMIN HCL ER [Glucophage Xr] 500 mg PO HS 03/05/18 03/05/18 traZODone HCL 50 mg PO HS 03/05/18 03/05/18 Allergies Allergy/AdvReac Type Severity Reaction Status Date / Time grapefruit AdvReac Itching Verified 03/05/18 11:15 Penicillins AdvReac Itching Verified 03/05/18 11:15 Review of Systems ROS Statement: Those systems with pertinent positive or pertinent negative responses have been documented in the HPI. ROS Other: All systems not noted in ROS Statement are negative. Constitutional: Denies: fever Eyes: Denies: eye pain ENT: Denies: ear pain Respiratory: Denies: cough, dyspnea Cardiovascular: Denies: chest pain Endocrine: Denies: fatigue Gastrointestinal: Denies: abdominal pain Genitourinary: Denies: dysuria Musculoskeletal: Denies: back pain Skin: Denies: rash Neurological: Denies: headache, weakness, confusion Past Medical History Past Medical History: Hyperlipidemia, Hypertension, Myocardial Infarction ([place]), Seizure Disorder, Thyroid Disorder Additional Past Medical History / Comment(s): heart stent x1 Last Myocardial Infarction Date:: N/A History of Any Multi-Drug Resistant Organisms: None Reported Past Surgical History: No Surgical Hx Reported Past Anesthesia/Blood Transfusion Reactions: No Reported Reaction Past Psychological History: Bipolar, Depression, Schizophrenia Smoking Status: Current every day smoker Past Alcohol Use History: None Reported Past Drug Use History: None Reported - Past Family History Mother Additional Family Medical History / Comment(s): in sleep General Exam Limitations: no limitations General appearance: alert, in no apparent distress Head exam: Present: atraumatic Eye exam: Present: normal appearance, PERRL, EOMI. Absent: nystagmus ENT exam: Present: normal oropharynx Neck exam: Present: normal inspection. Absent: tenderness, meningismus Respiratory exam: Present: normal lung sounds bilaterally Cardiovascular Exam: Present: regular rate, normal rhythm Expanded Peripheral pulses: 2+: Radial (R), Radial (L), Dorsalis Pedis (R), Dorsalis Pedis (L) GI/Abdominal exam: Present: soft. Absent: distended, tenderness, pulsatile mass Extremities exam: Present: normal inspection. Absent: pedal edema, calf tenderness Neurological exam: Present: alert, oriented X3, CN II-XII intact. Absent: motor sensory deficit Expanded Patient oriented to: Present: person, place, time Speech: Present: fluid speech Cranial nerves: EOM's Intact: Normal, Facial Sensation: Normal Sensory exam: Upper Extremity Light Touch: Normal, Lower Extremity Light Touch: Normal Motor strength exam: RUE: 5, LUE: 5, RLE: 5, LLE: 5 Eye Response: (4) open spontaneously Motor Response: (6) obeys commands Verbal Response: (5) oriented Psychiatric exam: Present: normal affect, normal mood Skin exam: Present: normal color Course Vital Signs 03/05/18 03/05/18 03/05/18 10:54 11:30 12:00 Temperature 98.5 F Pulse Rate 76 73 73 Respiratory 18 17 14 Rate Blood Pressure 142/74 122/64 122/64 O2 Sat by Pulse 100 99 Oximetry 03/05/18 12:30 Temperature Pulse Rate Respiratory Rate Blood Pressure 127/80 O2 Sat by Pulse Oximetry EKG Findings - EKG Comments: EKG Findings:: Normal sinus rhythm 74. [place] 152. QRS 78. QT 376. QTc 417. Normal axis. Normal QRS. No acute ST change. Medical Decision Making - Medical Decision Making Patient reevaluated. And resting comfortably in bed. Patient and family are updated on results and plan. Case was discussed in detail with Dr. Lauren, who will admit covering for Dr. Anthony, who admits for Dr. duron. - Lab Data Result diagrams: 03/05/18 13:05 03/05/18 13:05 Lab Results 03/05/18 03/05/18 03/05/18 Range/Units 13:05 13:05 13:05 WBC 7.1 (3.8-10.6) k/uL RBC 3.22 L (3.80-5.40) m/uL Hgb 9.2 L (11.4-16.0) gm/dL Hct 28.9 L (34.0-46.0) % MCV 89.8 (80.0-100.0) fL MCH 28.5 (25.0-35.0) pg MCHC 31.8 (31.0-37.0) g/dL RDW 14.7 (11.5-15.5) % Plt Count 154 (150-450) k/uL Neutrophils % 72 % Lymphocytes % 18 % Monocytes % 7 % Eosinophils % 1 % Basophils % 0 % Neutrophils # 5.1 (1.3-7.7) k/uL Lymphocytes # 1.3 (1.0-4.8) k/uL Monocytes # 0.5 (0-1.0) k/uL Eosinophils # 0.1 (0-0.7) k/uL Basophils # 0.0 (0-0.2) k/uL Sodium 140 (137-145) mmol/L Potassium 5.0 (3.5-5.1) mmol/L Chloride 107 (98-107) mmol/L Carbon Dioxide 27 (22-30) mmol/L Anion Gap 6 mmol/L BUN 22 H (7-17) mg/dL Creatinine 0.93 (0.52-1.04) mg/dL Est GFR (CKD-EPI)AfAm 76 (>60 ml/min/1.73 sqM) Est GFR (CKD-EPI)NonAf 66 (>60 ml/min/1.73 sqM) Glucose 110 H (74-99) mg/dL Calcium 9.0 (8.4-10.2) mg/dL Total Bilirubin 0.3 (0.2-1.3) mg/dL AST 23 (14-36) U/L ALT 27 (9-52) U/L Alkaline Phosphatase 77 (38-126) U/L Total Creatine Kinase 214 H (30-135) U/L CK-MB (CK-2) 1.7 (0.0-2.4) ng/mL CK-MB (CK-2) Rel Index 0.8 Troponin I QNS Total Protein 6.7 (6.3-8.2) g/dL Albumin 3.7 (3.5-5.0) g/dL Urine Color Urine Appearance (Clear) Urine pH (5.0-8.0) Ur Specific [place] (1.001-1.035) Urine Protein (Negative) Urine Glucose (UA) (Negative) Urine Ketones (Negative) Urine Blood (Negative) Urine Nitrite (Negative) Urine Bilirubin (Negative) Urine Urobilinogen (<2.0) mg/dL Ur Leukocyte Esterase (Negative) Stool Occult Blood (Negative) Carbamazepine 13.7 ug/mL 03/05/18 03/05/18 Range/Units 13:35 13:41 WBC (3.8-10.6) k/uL RBC (3.80-5.40) m/uL Hgb (11.4-16.0) gm/dL Hct (34.0-46.0) % MCV (80.0-100.0) fL MCH (25.0-35.0) pg MCHC (31.0-37.0) g/dL RDW (11.5-15.5) % Plt Count (150-450) k/uL Neutrophils % % Lymphocytes % % Monocytes % % Eosinophils % % Basophils % % Neutrophils # (1.3-7.7) k/uL Lymphocytes # (1.0-4.8) k/uL Monocytes # (0-1.0) k/uL Eosinophils # (0-0.7) k/uL Basophils # (0-0.2) k/uL Sodium (137-145) mmol/L Potassium (3.5-5.1) mmol/L Chloride (98-107) mmol/L Carbon Dioxide (22-30) mmol/L Anion Gap mmol/L BUN (7-17) mg/dL Creatinine (0.52-1.04) mg/dL Est GFR (CKD-EPI)AfAm (>60 ml/min/1.73 sqM) Est GFR (CKD-EPI)NonAf (>60 ml/min/1.73 sqM) Glucose (74-99) mg/dL Calcium (8.4-10.2) mg/dL Total Bilirubin (0.2-1.3) mg/dL AST (14-36) U/L ALT (9-52) U/L Alkaline Phosphatase (38-126) U/L Total Creatine Kinase (30-135) U/L CK-MB (CK-2) (0.0-2.4) ng/mL CK-MB (CK-2) Rel Index Troponin I Total Protein (6.3-8.2) g/dL Albumin (3.5-5.0) g/dL Urine Color Light Yellow Urine Appearance Clear (Clear) Urine pH 5.0 (5.0-8.0) Ur Specific [place] 1.006 (1.001-1.035) Urine Protein Negative (Negative) Urine Glucose (UA) Negative (Negative) Urine Ketones Negative (Negative) Urine Blood Negative (Negative) Urine Nitrite Negative (Negative) Urine Bilirubin Negative (Negative) Urine Urobilinogen <2.0 (<2.0) mg/dL Ur Leukocyte Esterase Negative (Negative) Stool Occult Blood Positive H (Negative) Carbamazepine ug/mL - Radiology Data Radiology results: report reviewed (Computed tomography scan of the brain shows some chronic white matter changes.), image reviewed (Chest x-ray shows some mild venous congestion) Disposition Clinical Impression: Near syncope, GI hemorrhage Disposition: ADMITTED IP TO THIS HOSP Is patient prescribed a controlled substance at d/c from ED?: No Referrals: Guido Duron MD [Primary Care Provider] - 1-2 days Decision Time: 14:24
--- NOTE | 2018-03-05 12:52 | CT ---
EXAMINATION TYPE: CT brain wo con DATE OF EXAM: 03/05/2018 COMPARISON: 02/14/2017 INDICATION: Near syncope today DLP: 1228.4 mGycm, Automated exposure control for dose reduction was used. CONTRAST: None CT of the brain is performed utilizing 3 mm thick sections through the posterior fossa and 3 mm thick sections through the remaining calvarium. Study is performed within 24 hours of arrival to the hosp [facility]. No abnormal hyperdensity is present to suggest an acute intracranial hemorrhage. No mass lesion is evident. No acute infarcts are evident. There is periventricular white matter hypodensity, likely on the basis of chronic white matter ischemic changes. This was present previously. Ventricles and sulci are appropriate for the patient age. Mucosal thickening is within the left maxillary sinus and through scattered ethmoid air cells. Hypero stosis frontalis internus, normal variant is present. IMPRESSIONS: 1. Chronic Periventricular white matter ischemic type changes. 2. Mild mucosal thickening within scattered ethmoid air cells.
--- NOTE | 2018-03-05 13:19 | XR ---
EXAMINATION TYPE: XR chest 2V DATE OF EXAM: 03/05/2018 COMPARISON: NONE HISTORY: Fall injury. Syncope. History of hypertension. TECHNIQUE: Frontal and lateral views of the chest are obtained. FINDINGS: Exam noted suboptimal due to patient's large body habitus. Some increased interstitial melly ings are present bilaterally. There is no focal air space opacity, pleural effusion, or pneumothorax seen. The cardiac silhouette size is enlarged without sclerotic aorta. The osseous structures are intact. IMPRESSION: Cardiomegaly with perhaps mild interstitial edema, correlate for mild CHF exacerbation.
[2018-03-05 13:27] LABS: Basophils % (A) 0 %; Eosinophils # (A) 0.1 k/uL (0-0.7); Eosinophils % (A) 1 %; HCT 28.9 % (34.0-46.0); HGB 9.2 gm/dL (11.4-16.0); Lymphocytes # (A) 1.3 k/uL (1.0-4.8); Lymphocytes % (A) 18 %; MCH 28.5 pg (25.0-35.0); MCHC 31.8 g/dL (31.0-37.0); MCV 89.8 fL (80.0-100.0); Monocytes # (A) 0.5 k/uL (0-1.0); Monocytes % (A) 7 %; Neutrophils # (A) 5.1 k/uL (1.3-7.7); Neutrophils % (A) 72 %; Platelet Count 154 k/uL (150-450); RBC 3.22 m/uL (3.80-5.40); RDW 14.7 % (11.5-15.5); WBC 7.1 k/uL (3.8-10.6)
[2018-03-05 13:48] LABS: Albumin 3.7 g/dL (3.5-5.0); Carbamazepine (Tegretol) 13.7 ug/mL; Total Bilirubin 0.3 mg/dL (0.2-1.3); Total Protein 6.7 g/dL (6.3-8.2)
[2018-03-05 13:49] LABS: Appearance,Urine Clear (Clear); Bilirubin,Urine Negative (Negative); Blood,Urine Negative (Negative); Color,Urine Light Yellow; Glucose,Urine (UA) Negative (Negative); Ketones,Urine Negative (Negative); Leukocyte Esterase,Urine Negative (Negative); Nitrite,Urine Negative (Negative); Protein,Urine Negative (Negative); Specific Gravity,Urine 1.006 (1.001-1.035); Urobilinogen,Urine <2.0 mg/dL (<2.0)
[2018-03-05 14:09] LABS: Creatine Kinase MB 1.7 ng/mL (0.0-2.4)
[2018-03-05 14:14] LABS: Creatine Kinase 214 U/L (30-135); Troponin I QNS ng/mL (0.000-0.034)
[2018-03-05] MEDS ORDERED: NALOXONE 0.4 MG/ML 1 ML VIAL IV PRN (14:25)
[2018-03-05 14:39] LABS: INR 1.1 (<1.2); Prothrombin Time 10.5 sec (9.0-12.0)
[2018-03-05 14:45] LABS: Partial Thromboplastin Time 19.4 sec (22.0-30.0)
[2018-03-05] MEDS ORDERED: MORPHINE SULFATE 4 MG/ML SYRINGE IV PRN (15:06)
[2018-03-05] MEDS ORDERED: HYDROcodone/APAP 5-325MG 1 EACH TAB PO PRN (15:06)
[2018-03-05] MEDS ORDERED: ACETAMINOPHEN TAB 325 MG TAB PO PRN (15:06)
[2018-03-05] MEDS: SODIUM CHLORIDE 0.9% 1,000 ML IV SCH (15:07)
[2018-03-05] MEDS: PANTOPRAZOLE 40 MG/10 ML VIAL IV SCH (15:07)
[2018-03-05] MEDS ORDERED: LORazepam 2 MG/ML INJ IV PRN (17:02)
--- NOTE | 2018-03-05 17:04 | P.HPIM ---
History of Present Illness H&P Date: 03/05/18 Chief Complaint: Near-syncope 62-year-old female with past medical history of hyperlipidemia, hypertension, CAD status post stents, seizure disorder, schizophrenia, depression and bipolar disorder presents to the ED after near syncopal episode. Patient reports living in a alf. She was sitting in a chair playing bingo when she suddenly felt lightheadedness with some nausea. Patient is unable to determine whether she lost consciousness. She reports falling forward from her chair, was caught by other spectators. She denies any auras prior to the event. Patient denies any shaking of the extremities. There is no bladder or bowel incontinence. Patient states that she was able to regain consciousness quickly. She was not confused after the fact. EMS was called at this time and patient was taken to the ED. She has never had this happen to her before. Patient denies any headaches, nausea, vomiting, fever, cough, chest pain, shortness of breath, changes in urination or bowel habits. She does report pedal edema which resolves with elevation of her legs. She has no changes in her appetite or weight. She admits to smoking 10 cigarettes a day. She denies drinking any alcohol or doing any illicit drugs. In the ED, CBC showed a hemoglobin of 9.2, hematocrit of 28.9. CMP showed a BUNs of 22, glucose of 110, CPK of 214. Initial troponin was less than 0.012, EKG showing normal sinus rhythm with nonspecific ST and T-wave changes. Carbamazepine level was therapeutic. Stool for occult blood was positive. CT of the brain showed periventricular white matter ischemic type changes. Chest x -ray shows cardiomegaly with mild interstitial edema. Patient is admitted for workup of anemia and presyncope. Review of Systems All systems: negative Past Medical History Past Medical History: Hyperlipidemia, Hypertension, Myocardial Infarction ([place]), Seizure Disorder, Thyroid Disorder Additional Past Medical History / Comment(s): heart stent x1 Last Myocardial Infarction Date:: N/A History of Any Multi-Drug Resistant Organisms: None Reported Past Surgical History: No Surgical Hx Reported Past Anesthesia/Blood Transfusion Reactions: No Reported Reaction Past Psychological History: Bipolar, Depression, Schizophrenia Smoking Status: Current every day smoker Past Alcohol Use History: None Reported Past Drug Use History: None Reported - Past Family History Mother Additional Family Medical History / Comment(s): in sleep Medications and Allergies Home Medications Medication Instructions Recorded Confirmed Type Black Cohosh 160 mg PO DAILY 02/14/17 03/05/18 History Cholecalciferol (Vitamin D3) 2,000 unit PO DAILY 02/14/17 03/05/18 History [Vitamin D3] Clopidogrel Bisulfate [Plavix] 75 mg PO DAILY 02/14/17 03/05/18 History Furosemide [Lasix] 40 mg PO DAILY 02/14/17 03/05/18 History Hydrocodone/Acetaminophen [[place] 1 tab PO TID PRN 02/14/17 03/05/18 History 7.5-325] Isosorbide Mononitrate ER [Imdur] 30 mg PO DAILY 02/14/17 03/05/18 History Potassium Chloride [Klor-Con 20] 20 meq PO DAILY 02/14/17 03/05/18 History QUEtiapine [SEROquel] 100 mg PO HS 02/14/17 03/05/18 History Solifenacin Succinate [Vesicare] 10 mg PO DAILY 02/14/17 03/05/18 History carBAMazepine [TEGretol] 300 mg PO TID 02/14/17 03/05/18 History risperiDONE [RisperDAL] 2 mg PO BID 02/14/17 03/05/18 History Acetaminophen Tab [Tylenol Tab] 650 mg PO TID PRN 03/05/18 03/05/18 History Albuterol Sulfate [Proair Hfa] 1 puff INHALATION RT-Q4H PRN 03/05/18 03/05/18 History Atorvastatin [Lipitor] 40 mg PO HS 03/05/18 03/05/18 History Cyanocobalamin (Vitamin B-12) 2,500 mcg PO DAILY 03/05/18 03/05/18 History [Vitamin B12] Diclofenac Sodium Gel [Voltaren 4 gm TOPICAL QID 03/05/18 03/05/18 History Gel] Diphenoxylate HCl/Atropine 1 tab PO TID PRN 03/05/18 03/05/18 History [Lomotil 2.5-0.025 mg Tablet] Ibuprofen [Motrin] 800 mg PO Q6H PRN 03/05/18 03/05/18 History Lisinopril 20 mg PO DAILY 03/05/18 03/05/18 History Loratadine [Claritin] 10 mg PO DAILY 03/05/18 03/05/18 History Metoprolol Tartrate [Lopressor] 25 mg PO BID 03/05/18 03/05/18 History Sennosides [Senna] 8.6 mg PO BID PRN 03/05/18 03/05/18 History Sertraline [Zoloft] 25 mg PO HS 03/05/18 03/05/18 History Sertraline [Zoloft] 100 mg PO DAILY 03/05/18 03/05/18 History metFORMIN HCL ER [Glucophage Xr] 500 mg PO HS 03/05/18 03/05/18 History traZODone HCL 50 mg PO HS 03/05/18 03/05/18 History Allergies Allergy/AdvReac Type Severity Reaction Status Date / Time grapefruit AdvReac Itching Verified 03/05/18 11:15 Penicillins AdvReac Itching Verified 03/05/18 11:15 Physical Exam Vitals: Vital Signs Temp Pulse Resp BP Pulse Ox 03/05/18 15:00 77 11 L 163/97 100 03/05/18 14:30 78 17 153/83 03/05/18 14:00 72 14 131/86 99 03/05/18 12:30 127/80 03/05/18 12:00 73 14 122/64 99 03/05/18 11:30 73 17 122/64 03/05/18 10:54 98.5 F 76 18 142/74 100 Intake and Output 03/05/18 03/05/18 03/05/18 06:59 14:59 22:59 Other: Weight 124.284 kg General: [non toxic], [no distress], [appears at stated age] Derm: [warm], [dry] Head: [atraumatic], [normocephalic], [symmetric] Eyes: [EOMI], [no lid lag], [anicteric sclera] Mouth: [no lip lesion], [mucus membranes moist] Cardiovascular: [S1S2 reg], [no murmur], [positive DP pulse bilateral] Lungs: [CTA bilateral], [no rhonchi, no rales] , [no accessory muscle use] Abdominal: [soft], [ nontender to palpation], [no guarding], [no appreciable organomegaly] Ext: [no gross muscle atrophy], [no edema], [no contractures] Neuro: [ CN II-XI grossly intact], [no focal neuro deficits] Psych: [Alert], [oriented], [appropriate affect] Results CBC & Chem 7: 03/05/18 13:05 03/05/18 13:05 Labs: Abnormal Lab Results - Last 24 Hours (Table) 03/05/18 03/05/18 03/05/18 Range/Units 13:05 13:05 13:05 RBC 3.22 L (3.80-5.40) m/uL Hgb 9.2 L (11.4-16.0) gm/dL Hct 28.9 L (34.0-46.0) % APTT (22.0-30.0) sec BUN 22 H (7-17) mg/dL Glucose 110 H (74-99) mg/dL Total Creatine Kinase 214 H (30-135) U/L Stool Occult Blood (Negative) 03/05/18 03/05/18 Range/Units 13:35 13:55 RBC (3.80-5.40) m/uL Hgb (11.4-16.0) gm/dL Hct (34.0-46.0) % APTT 19.4 L (22.0-30.0) sec BUN (7-17) mg/dL Glucose (74-99) mg/dL Total Creatine Kinase (30-135) U/L Stool Occult Blood Positive H (Negative) Assessment and Plan Assessment: Assessment and Plan 1. Near syncope: Unknown as to true syncope. Has h/o seizures but does not appear as so. Likely differential vasovagal vs. orthostatic vs. arrhythmia. Plans to r/o ACS. CT brain negative for acute abnormality. Trop < 0.012 x 1, EKG shows NSR with ST and T wave changes. Fall precautions. Telemetry monitoring. Trend 2 Trop/EKG to r/o ACS. FU Orthostats, Echocardiogram. 2. Anemia: Hg 9.2 Hct 28.9 MCV 89.8. Baseline ~ 12 on [employer] in 2017. FOBT +. Patient reports C-scope 5-6 years ago at [place]. CLD pending GI evaluation for possible C-scope and/or EGD. Protonix 40 mg IV QD. FU Ferritin, Iron studies , GI consult 3. CAD: Stable. Continue Lipitor 40 mg PO QHS and Metoprolol. Hold Plavix due to GI bleed. Resume when able. 4. Hypertension: BP 163/97. Continue Imdur 30 mg PO QD, Lisinopril 20 mg PO QD, Metoprolol 25 mg PO BID. Monitor vitals, adjust medications as necessary. 5. Seizure disorder: Stable. Ativan 2 mg IV Q6H PRN for seizures. Seizure and Fall precautions. Continue Carbamazepine 300 mg PO TID. 6. Bipolar/Depression/Schizophrenia: Stable. Continue Risperidal 2 mg PO BID, Sertraline 25 mg PO QHS and 100 mg PO QD, Trazodone 50 mg PO QHS. 7. DVT/GI Prophylaxis: Protonix IV. SCD boots only. Syncopal workup underway. GI on consult for positive FOBT.
[2018-03-05 20:49] LABS: Creatine Kinase 180 U/L (30-135)
[2018-03-05 21:03] LABS: Creatine Kinase MB 1.5 ng/mL (0.0-2.4); Troponin I <0.012 ng/mL (0.000-0.034)
[2018-03-05] MEDS: METOPROLOL TARTRATE 25 MG TAB PO SCH (21:12)
[2018-03-05] MEDS: risperiDONE 2 MG TAB PO SCH (21:12)
[2018-03-05] MEDS: QUEtiapine 100 MG TAB PO SCH (21:12)
[2018-03-05] MEDS: SERTRALINE 25 MG TAB PO SCH (21:12)
[2018-03-05] MEDS: ATORVASTATIN 40 MG TAB PO SCH (21:12)
[2018-03-05] MEDS: carBAMazepine 200 MG TAB PO SCH (21:13)
[2018-03-05] MEDS: traZODone HCL 50 MG TAB PO SCH (21:18)
[2018-03-06 01:17] LABS: Creatine Kinase 238 U/L (30-135)
[2018-03-06 01:29] LABS: Creatine Kinase MB 2.4 ng/mL (0.0-2.4); Troponin I <0.012 ng/mL (0.000-0.034)
[2018-03-06] MEDS: SODIUM CHLORIDE 0.9% 1,000 ML IV SCH ×2 (05:02→17:04)
[2018-03-06] MEDS: carBAMazepine 200 MG TAB PO SCH ×3 (08:14→21:13)
[2018-03-06] MEDS: TROSPIUM CHLORIDE 20 MG TABLET PO SCH ×2 (08:15→21:12)
[2018-03-06] MEDS: METOPROLOL TARTRATE 25 MG TAB PO SCH ×2 (08:15→21:12)
[2018-03-06] MEDS: ISOSORBIDE MONONITRATE ER 30 MG TAB.ER.24H PO SCH (08:15)
[2018-03-06] MEDS: risperiDONE 2 MG TAB PO SCH ×2 (08:16→21:12)
[2018-03-06] MEDS: FUROSEMIDE 40 MG TAB PO SCH (08:16)
[2018-03-06] MEDS: LISINOPRIL 20 MG TAB PO SCH (08:16)
[2018-03-06] MEDS: SERTRALINE 100 MG TAB PO SCH (08:16)
[2018-03-06] MEDS: PANTOPRAZOLE 40 MG/10 ML VIAL IV SCH (08:17)
--- NOTE | 2018-03-06 09:41 | ECHOF ---
Referral Reason:Near syncope MEASUREMENTS -------- HEIGHT: 165.1 cm WEIGHT: 124.3 kg BP: 114/67 IVSd: 1.1 cm (0.6 - 1.1) LVIDd: 4.9 cm (3.9 - 5.3) LVPWd: 0.7 cm (0.6 - 1.1) IVSs: 1.3 cm LVIDs: 4.2 cm LVPWs: 0.9 cm LA Diam: 4.6 cm (2.7 - 3.8) LAESV Index (A-L): 30.29 ml/m Ao Diam: 3.2 cm (2.0 - 3.7) AV Cusp: 1.3 cm (1.5 - 2.6) LA Diam: 3.1 cm (2.7 - 3.8) MV EXCURSION: 22.213 mm (> 18.000) MV EF SLOPE: 81 mm/s (70 - 150) EPSS: 1.0 cm MV E José: 0.81 m/s MV DecT: 251 ms MV A José: 0.88 m/s MV E/A Ratio: 0.92 RAP: 5.00 mmHg RVSP: 11.99 mmHg FINDINGS -------- Sinus rhythm. Morbid Obesity The left ventricular size is normal. There is mild concentric left ventricular hypertrophy. Overa ll left ventricular systolic function is mildly impaired with, an EF between 45 - 50 %. Basal poste rior LV wall motion is hypokinetic. The right ventricle is normal in size. The left atrium is mildly dilated. LA is midly dilated 29-33ml/m2. The right atrial size is normal. There is mild aortic valve sclerosis. There is no evidence of aortic regurgitation. Mild mitral annular calcification present. Mild mitral regurgitation is present. Mild tricuspid regurgitation present. There is no evidence of pulmonary hypertension. The right v entricular systolic pressure, as measured by Doppler, is 11.99mmHg. There is no pulmonic regurgitation present. The aortic root size is normal. Echo free space represents a pericardial fat pad. CONCLUSIONS -------- 1. Morbid Obesity 2. The left ventricular size is normal. 3. There is mild concentric left ventricular hypertrophy. 4. Overall left ventricular systolic function is mildly impaired with, an EF between 45 - 50 %. 5. Basal posterior LV wall motion is hypokinetic. 6. The right ventricle is normal in size. 7. The left atrium is mildly dilated. 8. LA is midly dilated 29-33ml/m2. 9. The right atrial size is normal. 10. There is mild aortic valve sclerosis. 11. Mild mitral annular calcification present. 12. Mild mitral regurgitation is present. 13. Mild tricuspid regurgitation present. 14. There is no evidence of pulmonary hypertension. 15. The right ventricular systolic pressure, as measured by Doppler, is 11.99mmHg. 16. There is no pulmonic regurgitation present. 17. The aortic root size is normal. 18. Echo free space represents a pericardial fat pad. MANAGER STYLIST: Stacy Diaz RDCS
[2018-03-06 09:51] LABS: Basophils % (A) 0 %; Eosinophils # (A) 0.1 k/uL (0-0.7); Eosinophils % (A) 2 %; HCT 26.1 % (34.0-46.0); HGB 8.1 gm/dL (11.4-16.0); Hypochromasia Slight; Lymphocytes # (A) 1.1 k/uL (1.0-4.8); Lymphocytes % (A) 28 %; MCH 28.8 pg (25.0-35.0); MCHC 31.2 g/dL (31.0-37.0); MCV 92.3 fL (80.0-100.0); Mean Platelet Volume 9.4; Monocytes # (A) 0.3 k/uL (0-1.0); Monocytes % (A) 7 %; Neutrophils # (A) 2.5 k/uL (1.3-7.7); Neutrophils % (A) 61 %; Platelet Count 171 k/uL (150-450); RBC 2.83 m/uL (3.80-5.40); RDW 14.7 % (11.5-15.5); WBC 4.1 k/uL (3.8-10.6)
--- NOTE | 2018-03-06 14:59 | P.PN ---
Subjective Progress Note Date: 03/06/18 Principal diagnosis: anemia Patient was seen and examined. No acute events overnight. No dizziness, chest pain, shortness of breath, palpitations at this time. No melena or bright red blood per stool. She has no complaints today. Objective - Vital Signs Vital signs: Vital Signs Temp 98.3 F 03/06/18 07:00 Pulse 89 03/06/18 08:23 Resp 16 03/06/18 07:30 BP 137/88 03/06/18 10:21 Pulse Ox 96 03/06/18 07:00 Intake & Output 03/05/18 03/06/18 03/06/18 18:59 06:59 18:59 Intake Total 425 1380 Balance 425 1380 Weight 124.284 kg Intake: Intake, IV Titration 900 Amount Sodium Chloride 0.9% 1, 900 000 ml @ 75 mls/hr IV . [id number] [facility] Rx#:[id number] Oral 425 480 Other: Voiding Method Toilet Diaper - Exam General: [non toxic], [no distress], [appears at stated age] Derm: [warm], [dry] Head: [atraumatic], [normocephalic], [symmetric] Eyes: [EOMI], [no lid lag], [anicteric sclera] Mouth: [no lip lesion], [mucus membranes moist] Cardiovascular: [S1S2 reg], [no murmur], [positive DP pulse bilateral] Lungs: [CTA bilateral], [no rhonchi, no rales] , [no accessory muscle use] Abdominal: [soft], [ nontender to palpation], [no guarding], [no appreciable organomegaly] Ext: [no gross muscle atrophy], [no edema], [no contractures] Neuro: [no focal neuro deficits] Psych: [Alert], [oriented], [appropriate affect] - Labs CBC & Chem 7: 03/06/18 08:43 03/05/18 13:05 Labs: Abnormal Lab Results - Last 24 Hours (Table) 03/05/18 03/06/18 03/06/18 Range/Units 19:46 00:36 08:43 RBC 2.83 L (3.80-5.40) m/uL Hgb 8.1 L (11.4-16.0) gm/dL Hct 26.1 L (34.0-46.0) % Total Creatine Kinase 180 H 238 H (30-135) U/L Assessment and Plan Assessment: Assessment and Plan 1. Near syncope: Unknown as to true syncope. Has h/o seizures but does not appear as so. Likely differential vasovagal vs. orthostatic vs. arrhythmia. Plans to r/o ACS. CT brain negative for acute abnormality. Trop < 0.012 x 3, EKG shows NSR with ST and T wave changes. Fall precautions. Telemetry monitoring. Orthostats positive, continue NS at 75 cc/h. Echocardiogram shows EF 45-50% with regional wall motion abnormalities (similar to 01/2017). 2. Anemia: Hg 9.2 to 8.1 Hct 28.9 to 26.1 MCV 89.8 to 92.3. Baseline ~ 12 on [employer] in 2016. Partially dilutional but Plt count went up this morning. FOBT +. Patient reports C-scope 5-6 years ago at [place]. Discussed with Dr. Montesinos , plans for EGD tomorrow. Continue Protonix 40 mg IV QD. FU Ferritin, Iron studies, GI consult 3. CAD: Stable. Continue Lipitor 40 mg PO QHS and Metoprolol. Hold Plavix due to GI bleed. Resume when able. 4. Hypertension: BP 137/88. Continue Imdur 30 mg PO QD, Lisinopril 20 mg PO QD, Metoprolol 25 mg PO BID. Monitor vitals, adjust medications as necessary. 5. Seizure disorder: Stable. Ativan 2 mg IV Q6H PRN for seizures. Seizure and Fall precautions. Continue Carbamazepine 300 mg PO TID. 6. Bipolar/Depression/Schizophrenia: Stable. Continue Risperidal 2 mg PO BID, Sertraline 25 mg PO QHS and 100 mg PO QD, Trazodone 50 mg PO QHS. 7. DVT/GI Prophylaxis: Protonix IV. SCD boots only. Near syncope likely due to dehydration. Continue IVF and check Orthostats tomorrow morning. GI for EGD tomorrow.
[2018-03-06 17:38] LABS: Iron Saturation 13.41 (12.00-45.00)
[2018-03-06 20:05] VITALS: RESP 16
[2018-03-06] MEDS: QUEtiapine 100 MG TAB PO SCH (21:12)
[2018-03-06] MEDS: SERTRALINE 25 MG TAB PO SCH (21:12)
[2018-03-06] MEDS: ATORVASTATIN 40 MG TAB PO SCH (21:12)
[2018-03-06] MEDS: traZODone HCL 50 MG TAB PO SCH (21:13)
[2018-03-07] MEDS: SODIUM CHLORIDE 0.9% 1,000 ML IV SCH (05:47)
[2018-03-07 07:23] VITALS: TEMP 98.3
[2018-03-07 08:44] LABS: ALT 27 U/L (9-52); AST 46 U/L (14-36); Albumin 3.4 g/dL (3.5-5.0); Alkaline Phosphatase 74 U/L (38-126); Anion Gap 4 mmol/L; Blood Urea Nitrogen 12 mg/dL (7-17); Calcium 8.9 mg/dL (8.4-10.2); Carbon Dioxide 26 mmol/L (22-30); Chloride 109 mmol/L (98-107); Glucose 113 mg/dL (74-99); Potassium 3.8 mmol/L (3.5-5.1); Sodium 139 mmol/L (137-145); Total Bilirubin 0.3 mg/dL (0.2-1.3); Total Protein 6.2 g/dL (6.3-8.2)
[2018-03-07 08:46] LABS: HCT 27.3 % (34.0-46.0); HGB 8.6 gm/dL (11.4-16.0); Hypochromasia Slight; MCH 28.7 pg (25.0-35.0); MCHC 31.6 g/dL (31.0-37.0); MCV 90.9 fL (80.0-100.0); Mean Platelet Volume 9.9; Platelet Count 163 k/uL (150-450); RDW 14.8 % (11.5-15.5); WBC 5.5 k/uL (3.8-10.6)
--- NOTE | 2018-03-07 09:06 | P.PN ---
Subjective Progress Note Date: 03/07/18 Principal diagnosis: Anemia Patient seen and examined. No acute events overnight. Patient reports bowel movement yesterday but unable to describe her stool. She denies any chest pain , shortness of breath, palpitations or dizziness at this time. Patient reports being back to baseline. States that she is hungry. NPO for possible EGD this morning. Objective - Vital Signs Vital signs: Vital Signs Temp 98.3 F 03/07/18 07:00 Pulse 92 03/07/18 08:05 Resp 16 03/07/18 07:00 BP 115/76 03/07/18 08:05 Pulse Ox 95 03/07/18 07:00 Intake & Output 03/06/18 03/07/18 03/07/18 18:59 06:59 18:59 Intake Total 1045 600 Balance 1045 600 Intake: Intake, IV Titration 525 600 Amount Sodium Chloride 0.9% 1, 525 600 000 ml @ 75 mls/hr IV . [id number] [facility] Rx#:[id number] Oral 520 Other: Voiding Method Toilet Indwelling Catheter Diaper # Voids 4 2 - Exam General: [non toxic], [no distress], [appears at stated age] Derm: [warm], [dry] Head: [atraumatic], [normocephalic], [symmetric] Eyes: [EOMI], [no lid lag], [anicteric sclera] Mouth: [no lip lesion], [mucus membranes moist] Cardiovascular: [S1S2 reg], [no murmur], [positive DP pulse bilateral] Lungs: [CTA bilateral], [no rhonchi, no rales] , [no accessory muscle use] Abdominal: [soft], [ nontender to palpation], [no guarding], [no appreciable organomegaly] Ext: [no gross muscle atrophy], [no edema], [no contractures] Neuro: [no focal neuro deficits] Psych: [Alert], [oriented], [appropriate affect] - Labs CBC & Chem 7: 03/07/18 08:12 03/07/18 08:12 Labs: Abnormal Lab Results - Last 24 Hours (Table) 03/06/18 03/06/18 03/07/18 Range/Units 08:43 08:43 08:12 RBC 2.83 L 3.00 L (3.80-5.40) m/uL Hgb 8.1 L 8.6 L (11.4-16.0) gm/dL Hct 26.1 L 27.3 L (34.0-46.0) % Chloride (98-107) mmol/L Glucose (74-99) mg/dL Iron 37 L (50-170) ug/dL AST (14-36) U/L Total Protein (6.3-8.2) g/dL Albumin (3.5-5.0) g/dL 03/07/18 Range/Units 08:12 RBC (3.80-5.40) m/uL Hgb (11.4-16.0) gm/dL Hct (34.0-46.0) % Chloride 109 H (98-107) mmol/L Glucose 113 H (74-99) mg/dL Iron (50-170) ug/dL AST 46 H (14-36) U/L Total Protein 6.2 L (6.3-8.2) g/dL Albumin 3.4 L (3.5-5.0) g/dL Assessment and Plan Assessment: Assessment and Plan 1. Near syncope: Resolved. No further episodes. Unknown as to true syncope. Has h/o seizures but does not appear as so. Likely orthostatic. Plans to r/o ACS. CT brain negative for acute abnormality. Trop < 0.012 x 3, EKG shows NSR with ST and T wave changes. Fall precautions. Telemetry monitoring. Orthostats negative this morning. Echocardiogram shows EF 45-50% with regional wall motion abnormalities (similar to 01/2017). 2. Anemia: Hg 9.2 to 8.1 to 8.6 Hct 28.9 to 26.1 to 27.3 MCV 89.8. Baseline ~ 12 on [employer] in 2017. Partially dilutional but Plt count went up this morning. FOBT +. Patient reports C-scope 5-6 years ago at [place]. Discussed with Dr. Montesinos, plans for EGD today. Continue Protonix 40 mg IV QD. Iron studies indicate iron deficiency anemia. FU GI consult 3. CAD: Stable. Continue Lipitor 40 mg PO QHS and Metoprolol. Hold Plavix due to GI bleed. Resume when able. 4. Hypertension: BP 154/86. Continue Imdur 30 mg PO QD, Lisinopril 20 mg PO QD, Metoprolol 25 mg PO BID. Monitor vitals, adjust medications as necessary. 5. Seizure disorder: Stable. Ativan 2 mg IV Q6H PRN for seizures. Seizure and Fall precautions. Continue Carbamazepine 300 mg PO TID. 6. Bipolar/Depression/Schizophrenia: Stable. Continue Risperidal 2 mg PO BID, Sertraline 25 mg PO QHS and 100 mg PO QD, Trazodone 50 mg PO QHS. 7. DVT/GI Prophylaxis: Protonix IV. SCD boots only. Dizziness and near syncope resolved. Trending Hg, remains stable this morning. Reports of C-scope 5-6 years ago per Daughter. GI for EGD today
[2018-03-07] MEDS ORDERED: LIDOCAINE 1% INJ 10MG/ML (20 ML MDV) ONE (09:15)
[2018-03-07] MEDS ORDERED: PROPOFOL 10 MG/ML 20 ML VIAL IV ONE (09:15)
[2018-03-07] MEDS ORDERED: GLYCOPYRROLATE 0.2 MG/ML 2 ML VIAL ONE (09:15)
[2018-03-07] MEDS ORDERED: IV FLUID CONTINUATION 1,000 ML IV ONE (09:16)
--- NOTE | 2018-03-07 09:26 | P.CONS ---
History of Present Illness - Reason for Consult Consult date: 03/06/18 Anemia Requesting physician: Yamilet Rai - Chief Complaint Near-syncope - History of Present Illness 62-year-old female with a medical history significant for dyslipidemia, hypertension, coronary artery disease status post post prior coronary artery stents, seizure disorder, depression, bipolar disorder who presents with complaints of a near-syncope. Per the patient she was playing cards when she felt lightheaded and had a near syncopal episode. She denies any signs or symptoms of seizure activity. The patient denies any change in bowel habits, melena, hematochezia, hematemesis, nausea or vomiting. She does report significant Motrin use twice a day. On presentation to the hospital patient was found to have a hemoglobin of 9.2 down from a prior reading of 12.8 in January 2017. She subsequently had her hemoglobin fall 3.1. She had a stool test which was positive for occult blood. She denies any prior upper endoscopy. She believes her last colonoscopy was approximately 5-6 years ago. She denies any abdominal pain. Review of Systems REVIEW OF SYSTEMS: CONSTITUTIONAL: Denies any fevers, chills, weight change or fatigue. CARDIOVASCULAR: Denies any chest pain, palpitations high or low blood pressures RESPIRATORY: Denies any shortness of breath, hemoptysis or cough. GENITOURINARY: No dysuria or hematuria. MUSCULOSKELETAL: No weakness reported. SKIN: Denies any new rashes or lesions, jaundice or pallor. PSYCHIATRIC: Denies any depression or anxiety. NEUROLOGY: Denies headache, denies any new focal deficits. EARS/NOSE/THROAT: No recent hearing change, congestion, nasal discharge or sore throat. EYES: No pain in eyes, discharge or change in vision. GASTROINTESTINAL: As per HPI. 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 hx includes:heart stent x1,tia,uti Last Myocardial Infarction Date:: N/A History of Any Multi-Drug Resistant Organisms: None Reported Past Surgical History: Heart Catheterization With Stent, Tubal Ligation Past Anesthesia/Blood Transfusion Reactions: No Reported Reaction Date of Last Stent Placement:: unk Smoking Status: Current every day smoker - Past Family History Mother Additional Family Medical History / Comment(s): in sleep Medications and Allergies Home Medications Medication Instructions Recorded Confirmed Type Black Cohosh 160 mg PO DAILY 02/14/17 03/05/18 History Cholecalciferol (Vitamin D3) 2,000 unit PO DAILY 02/14/17 03/05/18 History [Vitamin D3] Clopidogrel Bisulfate [Plavix] 75 mg PO DAILY 02/14/17 03/05/18 History Furosemide [Lasix] 40 mg PO DAILY 02/14/17 03/05/18 History Hydrocodone/Acetaminophen [[place] 1 tab PO TID PRN 02/14/17 03/05/18 History 7.5-325] Isosorbide Mononitrate ER [Imdur] 30 mg PO DAILY 02/14/17 03/05/18 History Potassium Chloride [Klor-Con 20] 20 meq PO DAILY 02/14/17 03/05/18 History QUEtiapine [SEROquel] 100 mg PO HS 02/14/17 03/05/18 History Solifenacin Succinate [Vesicare] 10 mg PO DAILY 02/14/17 03/05/18 History carBAMazepine [TEGretol] 300 mg PO TID 02/14/17 03/05/18 History risperiDONE [RisperDAL] 2 mg PO BID 02/14/17 03/05/18 History Acetaminophen Tab [Tylenol Tab] 650 mg PO TID PRN 03/05/18 03/05/18 History Albuterol Sulfate [Proair Hfa] 1 puff INHALATION RT-Q4H PRN 03/05/18 03/05/18 History Atorvastatin [Lipitor] 40 mg PO HS 03/05/18 03/05/18 History Cyanocobalamin (Vitamin B-12) 2,500 mcg PO DAILY 03/05/18 03/05/18 History [Vitamin B12] Diclofenac Sodium Gel [Voltaren 4 gm TOPICAL QID 03/05/18 03/05/18 History Gel] Diphenoxylate HCl/Atropine 1 tab PO TID PRN 03/05/18 03/05/18 History [Lomotil 2.5-0.025 mg Tablet] Ibuprofen [Motrin] 800 mg PO Q6H PRN 03/05/18 03/05/18 History Lisinopril 20 mg PO DAILY 03/05/18 03/05/18 History Loratadine [Claritin] 10 mg PO DAILY 03/05/18 03/05/18 History Metoprolol Tartrate [Lopressor] 25 mg PO BID 03/05/18 03/05/18 History Sennosides [Senna] 8.6 mg PO BID PRN 03/05/18 03/05/18 History Sertraline [Zoloft] 25 mg PO HS 03/05/18 03/05/18 History Sertraline [Zoloft] 100 mg PO DAILY 03/05/18 03/05/18 History metFORMIN HCL ER [Glucophage Xr] 500 mg PO HS 03/05/18 03/05/18 History traZODone HCL 50 mg PO HS 03/05/18 03/05/18 History Allergies Allergy/AdvReac Type Severity Reaction Status Date / Time grapefruit AdvReac Itching Verified 03/05/18 11:15 Penicillins AdvReac Itching Verified 03/05/18 11:15 Physical Exam Vitals: Vital Signs Temp Pulse Pulse Pulse Pulse Resp BP 03/06/18 20:04 98.1 F 78 16 123/74 03/06/18 16:00 15 03/06/18 15:00 98.0 F 82 15 98/58 03/06/18 10:21 137/88 03/06/18 10:20 118/76 03/06/18 08:23 85 89 89 109/70 03/06/18 07:30 16 03/06/18 07:00 98.3 F 79 16 110/77 Pulse Ox 03/06/18 20:04 98 03/06/18 16:00 03/06/18 15:00 99 03/06/18 10:21 03/06/18 10:20 03/06/18 08:23 03/06/18 07:30 03/06/18 07:00 96 Intake and Output 03/06/18 03/06/18 03/07/18 14:59 22:59 06:59 Intake Total 925 120 Balance 925 120 Intake: Intake, IV Titration 525 Amount Sodium Chloride 0.9% 1, 525 000 ml @ 75 mls/hr IV . [id number] [facility] Rx#:[id number] Oral 400 120 Other: Voiding Method Toilet Toilet Diaper Diaper # Voids 4 2 On physical examination, patient appears comfortable in no apparent distress. HEAD: Normocephalic, atraumatic. EYES: No scleral icterus. No conjunctival injection. MOUTH: No lesions, tongue midline. NECK: Trachea midline, no gross abnormalities. CHEST: Clear to auscultation with no wheezing or rhonchi appreciated. HEART: Regular rate and rhythm. ABDOMEN: Soft, obese. Bowel sounds are positive. No organomegaly. No guarding or rigidity. EXTREMITIES: No pedal edema. SKIN: No rashes, no jaundice. NEUROLOGIC: Alert and oriented x3. No focal deficits. Results CBC & Chem 7: 03/07/18 08:12 03/07/18 08:12 Labs: Abnormal Lab Results - Last 24 Hours (Table) 03/06/18 03/06/18 03/06/18 Range/Units 00:36 08:43 08:43 RBC 2.83 L (3.80-5.40) m/uL Hgb 8.1 L (11.4-16.0) gm/dL Hct 26.1 L (34.0-46.0) % Iron 37 L (50-170) ug/dL Total Creatine Kinase 238 H (30-135) U/L Assessment and Plan (1) GI hemorrhage Narrative/Plan: Patient found to have acute fall in hemoglobin to 9.2 on presentation 12.8 on last admission in 2016. Significant history of Motrin use. She also had testing which was positive for occult blood Current Visit: Yes Status: Acute Code(s): K92.2 - GASTROINTESTINAL HEMORRHAGE, UNSPECIFIED SNOMED Code(s): 47076665 (2) Anemia associated with acute blood loss Narrative/Plan: Secondary to above. Current Visit: Yes Status: Acute Code(s): D62 - ACUTE POSTHEMORRHAGIC ANEMIA SNOMED Code(s): 004320914 Plan: Supportive care Okay for liquid diet Continue Protonix twice a day Monitor hemoglobin and transfuse as needed Nothing by mouth after midnight Plan for EGD in the morning Further recommendations pending findings of EGD Thank you for allowing us participate in the care of this patient we will continue to follow
--- NOTE | 2018-03-07 09:53 | P.PCN ---
Date of Procedure: 03/07/18 Description of Procedure: BRIEF HISTORY: Patient is a 62-year-old, pleasant, female patient with a medical history significant for coronary artery disease, hypertension, multiple psychiatric comorbidities who presented to the hospital after a near syncopal episode and was found to be anemic with a negative acute fall in her hemoglobin from 12.7 in January 2017 to 9.2. The patient had stool for occult blood testing which was positive. She reports use of Motrin twice daily at home. Denies any change in bowel habits, hematemesis, hematochezia or melena. No abdominal pain. Upper endoscopy was ordered for further evaluation. PROCEDURE PERFORMED: Esophagogastroduodenoscopy with biopsy. PREOPERATIVE DIAGNOSIS: Anemia of acute blood loss, stool positive for occult blood. ESTIMATED BLOOD LOSS: Minimal. IV sedation per anesthesia. MAC PROCEDURE: After informed consent was obtained, the patient was brought into the endoscopy unit. IV sedation was administered by Anesthesia under continuous monitoring. Initially the Olympus GIF-190 video endoscope was inserted into the mouth. Esophagus intubated without any difficulty. It was gradually advanced into the stomach and duodenum and carefully examined. The bulb and the second part of the duodenum appeared normal. The scope at this time was withdrawn to the stomach, adequately insufflated with air, and upon careful examination, mucosa of the antrum, body, cardia and the fundus were inspected. Multiple superficial nonbleeding small ulcers were noted in the antrum of the stomach with biopsies taken. No high risk stigmata for rebleeding. The stomach was otherwise normal. The scope was then withdrawn into the esophagus. The GE junction was located at 39 cm from the incisors. The esophagus appeared normal. There were no erosions or ulcerations seen and the patient tolerated the procedure well. IMPRESSION: 1. Superficial antral ulcers, with no high risk stigmata of rebleeding. Biopsies taken. 2. No active GI bleeding. RECOMMENDATIONS: The findings of this examination were discussed with the patient. Okay for diet. Monitor hemoglobin and transfuse as needed. Continue Protonix oral 40 mg twice daily. Avoid NSAID use. Await pathology from biopsies. Patient will need repeat upper endoscopy and 4-6 weeks to ensure ulcer healing.
[2018-03-07] MEDS: carBAMazepine 200 MG TAB PO SCH (10:41)
[2018-03-07] MEDS: TROSPIUM CHLORIDE 20 MG TABLET PO SCH (10:43)
[2018-03-07] MEDS: risperiDONE 2 MG TAB PO SCH (10:44)
[2018-03-07] MEDS: LISINOPRIL 20 MG TAB PO SCH (10:56)
[2018-03-07] MEDS: SERTRALINE 100 MG TAB PO SCH (10:56)
[2018-03-07] MEDS: FUROSEMIDE 40 MG TAB PO SCH (10:56)
[2018-03-07] MEDS: METOPROLOL TARTRATE 25 MG TAB PO SCH (10:56)
[2018-03-07] MEDS: ISOSORBIDE MONONITRATE ER 30 MG TAB.ER.24H PO SCH (10:56)
--- NOTE | 2018-03-07 12:27 | P.DS ---
Providers Date of admission: 03/05/18 14:26 Expected date of discharge: 03/07/18 Attending physician: Yamilet Rai MD Consults: 03/05/18 14:25 Consult Physician Urgent Consulting Provider: Tera Montesinos Consult Reason/Comments: gi hemorrhage Do you want consulting provider notified?: Yes Primary care physician: Guido Duron - Discharge Diagnosis(es) (1) CAD (coronary artery disease) Current Visit: Yes Status: Acute (2) Hypertension Current Visit: Yes Status: Acute (3) Anemia associated with acute blood loss Current Visit: Yes Status: Acute (4) Near syncope Current Visit: Yes Status: Acute (5) Seizure disorder Current Visit: No Status: Acute Hospital Course: 62-year-old female with past medical history of hyperlipidemia, hypertension, CAD status post stents, seizure disorder, schizophrenia, depression and bipolar disorder presents to the ED after near syncopal episode. Patient reports living in a detention. She was sitting in a chair playing bingo when she suddenly felt lightheadedness with some nausea. Patient is unable to determine whether she lost consciousness. She reports falling forward from her chair, was caught by other spectators. She denies any auras prior to the event. Patient denies any shaking of the extremities. There is no bladder or bowel incontinence. Patient states that she was able to regain consciousness quickly. She was not confused after the fact. EMS was called at this time and patient was taken to the ED. She has never had this happen to her before. Patient denies any headaches, nausea, vomiting, fever, cough, chest pain, shortness of breath, changes in urination or bowel habits. She does report pedal edema which resolves with elevation of her legs. She has no changes in her appetite or weight. She admits to smoking 10 cigarettes a day. She denies drinking any alcohol or doing any illicit drugs. In the ED, CBC showed a hemoglobin of 9.2, hematocrit of 28.9. CMP showed a BUNs of 22, glucose of 110, CPK of 214. Initial troponin was less than 0.012, EKG showing normal sinus rhythm with nonspecific ST and T-wave changes. Carbamazepine level was therapeutic. Stool for occult blood was positive. CT of the brain showed periventricular white matter ischemic type changes. Chest x -ray shows cardiomegaly with mild interstitial edema. Patient is admitted for workup of anemia and presyncope. With regard to her near-syncope, patient denied any dizziness during her hospitalization. Her near syncopal episode was thought to be secondary to orthostatic hypotension. Orthostats were positive on admission. Echocardiogram showed an EF of 45-50% with regional wall motion abnormalities. This was very similar to the echocardiogram done in January 2017. She was given normal saline at 75 mL per hour. Her orthostats were negative prior to discharge. Patient's hemoglobin was trended due to her anemia. Hemoglobin on admission was 9.2 which trended down to 8.1 on day 2 and 8.6 on discharge. Patient reported a colonoscopy 5-6 years ago at [place] which was negative. Gastric neurology was consulted and plans were to do EGD. Patient was started on Protonix 40 IV daily. Iron studies indicated iron deficiency anemia. EGD was done which showed superficial antral ulcers with no high risk stigmata for rebleeding. She was advised to follow-up with gastric neurology in the outpatient setting for results of the biopsies and for re-scope in 4-6 weeks. Pertinent Studies: Brain CT Echocardiogram Procedures: EGD Patient Condition at Discharge: Good Plan - Discharge Summary Discharge Rx Participant: No New Discharge Prescriptions: New Pantoprazole [Protonix] 40 mg PO AC-BID #60 tablet.dr Chauhan Isosorbide Mononitrate ER [Imdur] 30 mg PO DAILY Solifenacin Succinate [Vesicare] 10 mg PO DAILY QUEtiapine [SEROquel] 100 mg PO HS Furosemide [Lasix] 40 mg PO DAILY Clopidogrel Bisulfate [Plavix] 75 mg PO DAILY carBAMazepine [TEGretol] 300 mg PO TID Cholecalciferol (Vitamin D3) [Vitamin D3] 2,000 unit PO DAILY risperiDONE [RisperDAL] 2 mg PO BID Potassium Chloride [Klor-Con 20] 20 meq PO DAILY Loratadine [Claritin] 10 mg PO DAILY metFORMIN HCL ER [Glucophage Xr] 500 mg PO HS Sertraline [Zoloft] 100 mg PO DAILY Lisinopril 20 mg PO DAILY Metoprolol Tartrate [Lopressor] 25 mg PO BID traZODone HCL 50 mg PO HS Sertraline [Zoloft] 25 mg PO HS Atorvastatin [Lipitor] 40 mg PO HS Sennosides [Senna] 8.6 mg PO BID PRN PRN Reason: Constipation Albuterol Sulfate [Proair Hfa] 1 puff INHALATION RT-Q4H PRN PRN Reason: Shortness Of Breath Diphenoxylate HCl/Atropine [Lomotil 2.5-0.025 mg Tablet] 1 tab PO TID PRN PRN Reason: Constipation Acetaminophen Tab [Tylenol] 650 mg PO TID PRN PRN Reason: Pain Cyanocobalamin (Vitamin B-12) [Vitamin B12] 2,500 mcg PO DAILY Discontinued Hydrocodone/Acetaminophen [[place] 7.5-325] 1 tab PO TID PRN PRN Reason: Pain Black Cohosh 160 mg PO DAILY Diclofenac Sodium Gel [Voltaren Gel] 4 gm TOPICAL QID Ibuprofen [Motrin] 800 mg PO Q6H PRN PRN Reason: Pain Discharge Medication List Cholecalciferol (Vitamin D3) [Vitamin D3] 2,000 unit PO DAILY 02/14/17 [History] Clopidogrel Bisulfate [Plavix] 75 mg PO DAILY 02/14/17 [History] Furosemide [Lasix] 40 mg PO DAILY 02/14/17 [History] Isosorbide Mononitrate ER [Imdur] 30 mg PO DAILY 02/14/17 [History] Potassium Chloride [Klor-Con 20] 20 meq PO DAILY 02/14/17 [History] QUEtiapine [SEROquel] 100 mg PO HS 02/14/17 [History] Solifenacin Succinate [Vesicare] 10 mg PO DAILY 02/14/17 [History] carBAMazepine [TEGretol] 300 mg PO TID 02/14/17 [History] risperiDONE [RisperDAL] 2 mg PO BID 02/14/17 [History] Acetaminophen Tab [Tylenol] 650 mg PO TID PRN 03/05/18 [History] Albuterol Sulfate [Proair Hfa] 1 puff INHALATION RT-Q4H PRN 03/05/18 [History] Atorvastatin [Lipitor] 40 mg PO HS 03/05/18 [History] Cyanocobalamin (Vitamin B-12) [Vitamin B12] 2,500 mcg PO DAILY 03/05/18 [History ] Diphenoxylate HCl/Atropine [Lomotil 2.5-0.025 mg Tablet] 1 tab PO TID PRN [History] Lisinopril 20 mg PO DAILY 03/05/18 [History] Loratadine [Claritin] 10 mg PO DAILY 03/05/18 [History] Metoprolol Tartrate [Lopressor] 25 mg PO BID 03/05/18 [History] Sennosides [Senna] 8.6 mg PO BID PRN 03/05/18 [History] Sertraline [Zoloft] 25 mg PO HS 03/05/18 [History] Sertraline [Zoloft] 100 mg PO DAILY 03/05/18 [History] metFORMIN HCL ER [Glucophage Xr] 500 mg PO HS 03/05/18 [History] traZODone HCL 50 mg PO HS 03/05/18 [History] Pantoprazole [Protonix] 40 mg PO AC-BID #60 tablet. 03/07/18 [Rx] Follow up Appointment(s)/Referral(s): Guido Duron MD [Primary Care Provider] - 1-2 days Activity/Diet/Wound Care/Special Instructions: Diet: Low salt diet. Please follow-up with your primary care provider within 1-2 days of discharge. Please follow-up with gastroenterology Dr. Montesinos within 4 weeks of discharge. Please take all medications as advised. Please come to the ED if you experience blood in your stool, black stools or are vomiting blood. Discharge Disposition: HOME SELF-CARE
[2018-03-07 13:52] VITALS: BP 148/77; PULSE 91
[2018-03-07] MEDS ORDERED: PANTOPRAZOLE 40 MG TABLET PO SCH (17:30)
== END 2018-03-07 16:30 | disposition home or self-care (01) ==
LOC: EC 10:51 → 4SSUR 14:26
PROVIDERS: ADMIT Family Medicine; ATTEND Family Medicine
DX: R55 Syncope and collapse (principal); D62 Acute posthemorrhagic anemia; K25.9 Gastric ulcer, unspecified as acute or chronic, without hemorrhage or perforation; I25.10 Atherosclerotic heart disease of native coronary artery without angina pectoris; I10 Essential (primary) hypertension; G40.909 Epilepsy, unspecified, not intractable, without status epilepticus; E78.5 Hyperlipidemia, unspecified; R60.0 Localized edema; I95.1 Orthostatic hypotension; D50.9 Iron deficiency anemia, unspecified; R19.5 Other fecal abnormalities; I25.2 Old myocardial infarction; E86.0 Dehydration; Z95.5 Presence of coronary angioplasty implant and graft; F20.9 Schizophrenia, unspecified; F31.9 Bipolar disorder, unspecified; G47.33 Obstructive sleep apnea (adult) (pediatric); W07.XXXA Fall from chair, initial encounter; Y92.099 Unspecified place in other non-institutional residence as the place of occurrence of the external cause; F17.210 Nicotine dependence, cigarettes, uncomplicated; Z79.02 Long term (current) use of antithrombotics/antiplatelets; Z79.899 Other long term (current) drug therapy; Z79.84 Long term (current) use of oral hypoglycemic drugs; Z88.0 Allergy status to penicillin; Z91.018 Allergy to other foods; Z86.73 Personal history of transient ischemic attack (TIA), and cerebral infarction without residual deficits; Z87.440 Personal history of urinary (tract) infections
CPT/HCPCS: 96376; 96374; 99285; 36415; 93005; 93306; 80156; 88305; 83880; 80053 ×2; 82728; 82550 ×2; 82553 ×2; 83540; 83550; 84484 ×2; 85025 ×2; 85027; 85610; 85730; 82272; 81003; 71046; 70450; 43239; G0378 ×3; J2001; J2704; C9113 ×2

== ENCOUNTER 2018-04-16 14:42 | Inpatient (IN) | payer MEDICARE, BC ==
[2018-04-16] MEDS ORDERED: SODIUM CHLORIDE 0.9% 1,000 ML IV STA (14:59)
--- NOTE | 2018-04-16 15:01 | ED ---
Weakness HPI - General Chief complaint: Seizure Stated complaint: Poss seizures Time Seen by Provider: 04/16/18 14:52 Source: patient, RN notes reviewed, old records reviewed Mode of arrival: ambulatory Limitations: no limitations - History of Present Illness Initial comments: This is a 62-year-old female the ER for evaluation presenting for eversion possible seizure versus near syncopal events. Patient is a poor strain states she's having episodes of near syncope, very much feeling weak when she gets up and tries to walk. Decreased level of strength. Denies any pain no chest pain or shortness of breath no abdominal pain. MD Complaint: generalized weakness -: hour(s) Location: generalized Severity: moderate Severity scale (1-10): 5 Quality: other (No pain) Consistency: other (Occurs just with activity) Improves with: none Worsens with: evening, movement Associated Symptoms: denies other symptoms - Related Data Home Medications Medication Instructions Recorded Confirmed Cholecalciferol (Vitamin D3) 2,000 unit PO DAILY 02/14/17 03/05/18 [Vitamin D3] Clopidogrel Bisulfate [Plavix] 75 mg PO DAILY 02/14/17 03/05/18 Furosemide [Lasix] 40 mg PO DAILY 02/14/17 03/05/18 Isosorbide Mononitrate ER [Imdur] 30 mg PO DAILY 02/14/17 03/05/18 Potassium Chloride [Klor-Con 20] 20 meq PO DAILY 02/14/17 03/05/18 QUEtiapine [SEROquel] 100 mg PO HS 02/14/17 03/05/18 Solifenacin Succinate [Vesicare] 10 mg PO DAILY 02/14/17 03/05/18 carBAMazepine [TEGretol] 300 mg PO TID 02/14/17 03/05/18 risperiDONE [RisperDAL] 2 mg PO BID 02/14/17 03/05/18 Acetaminophen Tab [Tylenol] 650 mg PO TID PRN 03/05/18 03/05/18 Albuterol Sulfate [Proair Hfa] 1 puff INHALATION RT-Q4H PRN 03/05/18 03/05/18 Atorvastatin [Lipitor] 40 mg PO HS 03/05/18 03/05/18 Cyanocobalamin (Vitamin B-12) 2,500 mcg PO DAILY 03/05/18 03/05/18 [Vitamin B12] Diphenoxylate HCl/Atropine 1 tab PO TID PRN 03/05/18 03/05/18 [Lomotil 2.5-0.025 mg Tablet] Lisinopril 20 mg PO DAILY 03/05/18 03/05/18 Loratadine [Claritin] 10 mg PO DAILY 03/05/18 03/05/18 Metoprolol Tartrate [Lopressor] 25 mg PO BID 03/05/18 03/05/18 Sennosides [Senna] 8.6 mg PO BID PRN 03/05/18 03/05/18 Sertraline [Zoloft] 25 mg PO HS 03/05/18 03/05/18 Sertraline [Zoloft] 100 mg PO DAILY 03/05/18 03/05/18 metFORMIN HCL ER [Glucophage Xr] 500 mg PO HS 03/05/18 03/05/18 traZODone HCL 50 mg PO HS 03/05/18 03/05/18 Previous Rx's Medication Instructions Recorded Pantoprazole [Protonix] 40 mg PO AC-BID #60 tablet. 03/07/18 Allergies Allergy/AdvReac Type Severity Reaction Status Date / Time grapefruit AdvReac Itching Verified 04/16/18 16:21 Penicillins AdvReac Itching Verified 04/16/18 16:21 Review of Systems ROS Statement: Those systems with pertinent positive or pertinent negative responses have been documented in the HPI. ROS Other: All systems not noted in ROS Statement are negative. 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 hx includes:heart stent x1,tia,uti Last Myocardial Infarction Date:: N/A History of Any Multi-Drug Resistant Organisms: None Reported Past Surgical History: Heart Catheterization With Stent, Tubal Ligation Past Anesthesia/Blood Transfusion Reactions: No Reported Reaction Date of Last Stent Placement:: unk Past Psychological History: Bipolar, Depression, Schizophrenia Smoking Status: Current every day smoker Past Alcohol Use History: None Reported Past Drug Use History: None Reported - Past Family History Mother Additional Family Medical History / Comment(s): in sleep General Exam Limitations: no limitations General appearance: alert, in no apparent distress, obese Head exam: Present: atraumatic, normocephalic, normal inspection Eye exam: Present: normal appearance, PERRL, EOMI. Absent: scleral icterus, conjunctival injection, periorbital swelling ENT exam: Present: normal exam, mucous membranes moist Neck exam: Present: normal inspection. Absent: tenderness, meningismus, lymphadenopathy Respiratory exam: Present: normal lung sounds bilaterally. Absent: respiratory distress, wheezes, rales, rhonchi, stridor Cardiovascular Exam: Present: regular rate, normal rhythm, normal heart sounds. Absent: systolic murmur, diastolic murmur, rubs, gallop, clicks GI/Abdominal exam: Present: soft, normal bowel sounds. Absent: distended, tenderness, guarding, rebound, rigid Extremities exam: Present: normal inspection, full ROM, normal capillary refill. Absent: tenderness, pedal edema, joint swelling, calf tenderness Back exam: Present: normal inspection Neurological exam: Present: alert, oriented X3, CN II-XII intact Psychiatric exam: Present: normal affect, normal mood Skin exam: Present: warm, dry, intact, normal color. Absent: rash Course Vital Signs 04/16/18 14:54 Temperature 97.9 F Pulse Rate 93 Respiratory 18 Rate Blood Pressure 125/65 O2 Sat by Pulse 99 Oximetry - Reevaluation(s) Reevaluation #1: 04/16/18 16:41 Medical record is reviewed Reevaluation #2: 04/16/18 16:41 Patient is without syncope or seizure here in the ER EKG Findings - EKG Comments: EKG Findings:: EKG shows sinus rhythm rate of 93, W[place] 150, QRS 86, QTc 432 Medical Decision Making - Medical Decision Making 62 female the ER for evaluation of possible seizure, she is having near syncopal events. Patient will be admitted for treatment of urinary tract infection, patient put on IV hydration and IV antibiotics - Lab Data Result diagrams: 04/16/18 15:08 04/16/18 15:08 Lab Results 04/16/18 04/16/18 04/16/18 Range/Units 15:08 15:08 15:08 WBC 6.3 (3.8-10.6) k/uL RBC 3.68 L (3.80-5.40) m/uL Hgb 9.3 L (11.4-16.0) gm/dL Hct 30.5 L (34.0-46.0) % MCV 82.9 D (80.0-100.0) fL MCH 25.1 (25.0-35.0) pg MCHC 30.3 L (31.0-37.0) g/dL RDW 16.6 H (11.5-15.5) % Plt Count 194 (150-450) k/uL Neutrophils % 71 % Lymphocytes % 19 % Monocytes % 7 % Eosinophils % 1 % Basophils % 0 % Neutrophils # 4.5 (1.3-7.7) k/uL Lymphocytes # 1.2 (1.0-4.8) k/uL Monocytes # 0.5 (0-1.0) k/uL Eosinophils # 0.1 (0-0.7) k/uL Basophils # 0.0 (0-0.2) k/uL Hypochromasia Moderate Anisocytosis Slight PT (9.0-12.0) sec INR (<1.2) APTT (22.0-30.0) sec Sodium 143 (137-145) mmol/L Potassium 4.5 (3.5-5.1) mmol/L Chloride 106 (98-107) mmol/L Carbon Dioxide 26 (22-30) mmol/L Anion Gap 11 mmol/L BUN 37 H (7-17) mg/dL Creatinine 1.84 H (0.52-1.04) mg/dL Est GFR (CKD-EPI)AfAm 33 (>60 ml/min/1.73 sqM) Est GFR (CKD-EPI)NonAf 29 (>60 ml/min/1.73 sqM) Glucose 124 H (74-99) mg/dL Plasma Lactic Acid Valerio (0.7-2.0) mmol/L Calcium 9.4 (8.4-10.2) mg/dL Phosphorus 3.6 (2.5-4.5) mg/dL Magnesium 1.9 (1.6-2.3) mg/dL Total Bilirubin 0.2 (0.2-1.3) mg/dL AST 18 (14-36) U/L ALT 18 (9-52) U/L Alkaline Phosphatase 73 (38-126) U/L Total Creatine Kinase 136 H (30-135) U/L CK-MB (CK-2) 1.3 (0.0-2.4) ng/mL CK-MB (CK-2) Rel Index 1.0 Troponin I <0.012 (0.000-0.034) ng/mL Total Protein 7.2 (6.3-8.2) g/dL Albumin 4.0 (3.5-5.0) g/dL Urine Color Urine Appearance (Clear) Urine pH (5.0-8.0) Ur Specific [place] (1.001-1.035) Urine Protein (Negative) Urine Glucose (UA) (Negative) Urine Ketones (Negative) Urine Blood (Negative) Urine Nitrite (Negative) Urine Bilirubin (Negative) Urine Urobilinogen (<2.0) mg/dL Ur Leukocyte Esterase (Negative) Urine RBC (0-5) /hpf Urine WBC (0-5) /hpf Ur Squamous Epith Cells (0-4) /hpf Amorphous Sediment (None) /hpf Urine Bacteria (None) /hpf Hyaline Casts (0-2) /lpf Urine Mucus (None) /hpf Valproic Acid <10.0 ug/mL 04/16/18 04/16/18 04/16/18 Range/Units 15:08 15:08 15:51 WBC (3.8-10.6) k/uL RBC (3.80-5.40) m/uL Hgb (11.4-16.0) gm/dL Hct (34.0-46.0) % MCV (80.0-100.0) fL MCH (25.0-35.0) pg MCHC (31.0-37.0) g/dL RDW (11.5-15.5) % Plt Count (150-450) k/uL Neutrophils % % Lymphocytes % % Monocytes % % Eosinophils % % Basophils % % Neutrophils # (1.3-7.7) k/uL Lymphocytes # (1.0-4.8) k/uL Monocytes # (0-1.0) k/uL Eosinophils # (0-0.7) k/uL Basophils # (0-0.2) k/uL Hypochromasia Anisocytosis PT 10.6 (9.0-12.0) sec INR 1.0 (<1.2) APTT 16.5 L (22.0-30.0) sec Sodium (137-145) mmol/L Potassium (3.5-5.1) mmol/L Chloride (98-107) mmol/L Carbon Dioxide (22-30) mmol/L Anion Gap mmol/L BUN (7-17) mg/dL Creatinine (0.52-1.04) mg/dL Est GFR (CKD-EPI)AfAm (>60 ml/min/1.73 sqM) Est GFR (CKD-EPI)NonAf (>60 ml/min/1.73 sqM) Glucose (74-99) mg/dL Plasma Lactic Acid Valerio 3.7 H* (0.7-2.0) mmol/L Calcium (8.4-10.2) mg/dL Phosphorus (2.5-4.5) mg/dL Magnesium (1.6-2.3) mg/dL Total Bilirubin (0.2-1.3) mg/dL AST (14-36) U/L ALT (9-52) U/L Alkaline Phosphatase (38-126) U/L Total Creatine Kinase (30-135) U/L CK-MB (CK-2) (0.0-2.4) ng/mL CK-MB (CK-2) Rel Index Troponin I (0.000-0.034) ng/mL Total Protein (6.3-8.2) g/dL Albumin (3.5-5.0) g/dL Urine Color Light Yellow Urine Appearance Cloudy H (Clear) Urine pH 6.0 (5.0-8.0) Ur Specific [place] 1.007 (1.001-1.035) Urine Protein Negative (Negative) Urine Glucose (UA) Negative (Negative) Urine Ketones Negative (Negative) Urine Blood Negative (Negative) Urine Nitrite Positive H (Negative) Urine Bilirubin Negative (Negative) Urine Urobilinogen <2.0 (<2.0) mg/dL Ur Leukocyte Esterase Small H (Negative) Urine RBC 1 (0-5) /hpf Urine WBC 6 H (0-5) /hpf Ur Squamous Epith Cells 5 H (0-4) /hpf Amorphous Sediment Rare H (None) /hpf Urine Bacteria Moderate H (None) /hpf Hyaline Casts 19 H (0-2) /lpf Urine Mucus Rare H (None) /hpf Valproic Acid ug/mL - Radiology Data Radiology results: report reviewed (CT brain is negative for acute disease), image reviewed Disposition Clinical Impression: Weakness, Debility, Hyperlipidemia, TIA (transient ischemic attack), UTI ( urinary tract infection), Lactic acidosis Disposition: ADMITTED IP TO THIS HOSP Condition: Fair Is patient prescribed a controlled substance at d/c from ED?: No Referrals: None,Stated [Primary Care Provider] - 1-2 days
[2018-04-16 15:30] LABS: Anisocytosis Slight; Basophils % (A) 0 %; Eosinophils # (A) 0.1 k/uL (0-0.7); Eosinophils % (A) 1 %; HCT 30.5 % (34.0-46.0); HGB 9.3 gm/dL (11.4-16.0); Hypochromasia Moderate; Lymphocytes # (A) 1.2 k/uL (1.0-4.8); Lymphocytes % (A) 19 %; MCH 25.1 pg (25.0-35.0); MCHC 30.3 g/dL (31.0-37.0); Mean Platelet Volume 8.9; Monocytes # (A) 0.5 k/uL (0-1.0); Monocytes % (A) 7 %; Neutrophils # (A) 4.5 k/uL (1.3-7.7); Neutrophils % (A) 71 %; Platelet Count 194 k/uL (150-450); RBC 3.68 m/uL (3.80-5.40); RDW 16.6 % (11.5-15.5); WBC 6.3 k/uL (3.8-10.6)
[2018-04-16 15:31] LABS: MCV 82.9 fL (80.0-100.0)
[2018-04-16 15:32] LABS: ALT 18 U/L (9-52); AST 18 U/L (14-36); Alkaline Phosphatase 73 U/L (38-126); Anion Gap 11 mmol/L; Blood Urea Nitrogen 37 mg/dL (7-17); Calcium 9.4 mg/dL (8.4-10.2); Carbon Dioxide 26 mmol/L (22-30); Chloride 106 mmol/L (98-107); Glucose 124 mg/dL (74-99); Magnesium 1.9 mg/dL (1.6-2.3); Phosphorus 3.6 mg/dL (2.5-4.5); Potassium 4.5 mmol/L (3.5-5.1); Sodium 143 mmol/L (137-145); Total Bilirubin 0.2 mg/dL (0.2-1.3); Total Protein 7.2 g/dL (6.3-8.2)
--- NOTE | 2018-04-16 15:36 | CT ---
EXAMINATION TYPE: CT brain wo con DATE OF EXAM: 04/16/2018 HISTORY: Weakness. AMS CT DLP: 1060.4 mGycm. Automated Exposure Control for Dose Reduction was Utilized. TECHNIQUE: CT scan of the head is performed without contrast. COMPARISON: CT brain March 05, 2018. FINDINGS: There is no acute intracranial hemorrhage or midline shift identified. There is diffuse v entricular and sulcal prominence consistent with diffuse age-related cerebral atrophy. There is low- attenuation in the periventricular white matter consistent with chronic small vessel ischemic change. The globes are intact and the visualized sinuses are clear. IMPRESSION: No acute intracranial hemorrhage or midline shift. There is mild to moderate diffuse ag e-related cerebral atrophy and chronic small vessel ischemic change redemonstrated without significan t interval change.
[2018-04-16 15:37] LABS: Creatine Kinase 136 U/L (30-135); Prothrombin Time 10.6 sec (9.0-12.0); Valproic Acid (Depakene) <10.0 ug/mL
[2018-04-16 15:42] LABS: Partial Thromboplastin Time 16.5 sec (22.0-30.0)
[2018-04-16 15:49] LABS: Creatine Kinase MB 1.3 ng/mL (0.0-2.4); Troponin I <0.012 ng/mL (0.000-0.034)
[2018-04-16 16:23] LABS: Amorphous Sediment,Urine Rare /hpf; Appearance,Urine Cloudy (Clear); Bacteria,Urine Moderate /hpf; Bilirubin,Urine Negative (Negative); Blood,Urine Negative (Negative); Color,Urine Light Yellow; Glucose,Urine (UA) Negative (Negative); Hyaline Casts,Urine 19 /lpf (0-2); Ketones,Urine Negative (Negative); Leukocyte Esterase,Urine Small (Negative); Mucus,Urine Rare /hpf; Nitrite,Urine Positive (Negative); Protein,Urine Negative (Negative); RBC,Urine 1 /hpf (0-5); Specific Gravity,Urine 1.007 (1.001-1.035); Squamous Epithelial Cell,Urine 5 /hpf (0-4); Urobilinogen,Urine <2.0 mg/dL (<2.0); WBC,Urine 6 /hpf (0-5)
[2018-04-16] MEDS ORDERED: cefTRIAXone 2,000 MG in SODIUM CHLORIDE 0.9% 100 ML IVPB STA (16:39)
--- NOTE | 2018-04-16 17:17 | ED ---
Medical Decision Making - Medical Decision Making Patient does demonstrate no evidence of acute renal failure. - Lab Data Result diagrams: 04/16/18 15:08 04/16/18 15:08 Lab Results 04/16/18 04/16/18 04/16/18 Range/Units 15:08 15:08 15:08 WBC 6.3 (3.8-10.6) k/uL RBC 3.68 L (3.80-5.40) m/uL Hgb 9.3 L (11.4-16.0) gm/dL Hct 30.5 L (34.0-46.0) % MCV 82.9 D (80.0-100.0) fL MCH 25.1 (25.0-35.0) pg MCHC 30.3 L (31.0-37.0) g/dL RDW 16.6 H (11.5-15.5) % Plt Count 194 (150-450) k/uL Neutrophils % 71 % Lymphocytes % 19 % Monocytes % 7 % Eosinophils % 1 % Basophils % 0 % Neutrophils # 4.5 (1.3-7.7) k/uL Lymphocytes # 1.2 (1.0-4.8) k/uL Monocytes # 0.5 (0-1.0) k/uL Eosinophils # 0.1 (0-0.7) k/uL Basophils # 0.0 (0-0.2) k/uL Hypochromasia Moderate Anisocytosis Slight PT (9.0-12.0) sec INR (<1.2) APTT (22.0-30.0) sec Sodium 143 (137-145) mmol/L Potassium 4.5 (3.5-5.1) mmol/L Chloride 106 (98-107) mmol/L Carbon Dioxide 26 (22-30) mmol/L Anion Gap 11 mmol/L BUN 37 H (7-17) mg/dL Creatinine 1.84 H (0.52-1.04) mg/dL Est GFR (CKD-EPI)AfAm 33 (>60 ml/min/1.73 sqM) Est GFR (CKD-EPI)NonAf 29 (>60 ml/min/1.73 sqM) Glucose 124 H (74-99) mg/dL Plasma Lactic Acid Valerio (0.7-2.0) mmol/L Calcium 9.4 (8.4-10.2) mg/dL Phosphorus 3.6 (2.5-4.5) mg/dL Magnesium 1.9 (1.6-2.3) mg/dL Total Bilirubin 0.2 (0.2-1.3) mg/dL AST 18 (14-36) U/L ALT 18 (9-52) U/L Alkaline Phosphatase 73 (38-126) U/L Total Creatine Kinase 136 H (30-135) U/L CK-MB (CK-2) 1.3 (0.0-2.4) ng/mL CK-MB (CK-2) Rel Index 1.0 Troponin I <0.012 (0.000-0.034) ng/mL Total Protein 7.2 (6.3-8.2) g/dL Albumin 4.0 (3.5-5.0) g/dL Urine Color Urine Appearance (Clear) Urine pH (5.0-8.0) Ur Specific [place] (1.001-1.035) Urine Protein (Negative) Urine Glucose (UA) (Negative) Urine Ketones (Negative) Urine Blood (Negative) Urine Nitrite (Negative) Urine Bilirubin (Negative) Urine Urobilinogen (<2.0) mg/dL Ur Leukocyte Esterase (Negative) Urine RBC (0-5) /hpf Urine WBC (0-5) /hpf Ur Squamous Epith Cells (0-4) /hpf Amorphous Sediment (None) /hpf Urine Bacteria (None) /hpf Hyaline Casts (0-2) /lpf Urine Mucus (None) /hpf Valproic Acid <10.0 ug/mL 04/16/18 04/16/18 04/16/18 Range/Units 15:08 15:08 15:51 WBC (3.8-10.6) k/uL RBC (3.80-5.40) m/uL Hgb (11.4-16.0) gm/dL Hct (34.0-46.0) % MCV (80.0-100.0) fL MCH (25.0-35.0) pg MCHC (31.0-37.0) g/dL RDW (11.5-15.5) % Plt Count (150-450) k/uL Neutrophils % % Lymphocytes % % Monocytes % % Eosinophils % % Basophils % % Neutrophils # (1.3-7.7) k/uL Lymphocytes # (1.0-4.8) k/uL Monocytes # (0-1.0) k/uL Eosinophils # (0-0.7) k/uL Basophils # (0-0.2) k/uL Hypochromasia Anisocytosis PT 10.6 (9.0-12.0) sec INR 1.0 (<1.2) APTT 16.5 L (22.0-30.0) sec Sodium (137-145) mmol/L Potassium (3.5-5.1) mmol/L Chloride (98-107) mmol/L Carbon Dioxide (22-30) mmol/L Anion Gap mmol/L BUN (7-17) mg/dL Creatinine (0.52-1.04) mg/dL Est GFR (CKD-EPI)AfAm (>60 ml/min/1.73 sqM) Est GFR (CKD-EPI)NonAf (>60 ml/min/1.73 sqM) Glucose (74-99) mg/dL Plasma Lactic Acid Valerio 3.7 H* (0.7-2.0) mmol/L Calcium (8.4-10.2) mg/dL Phosphorus (2.5-4.5) mg/dL Magnesium (1.6-2.3) mg/dL Total Bilirubin (0.2-1.3) mg/dL AST (14-36) U/L ALT (9-52) U/L Alkaline Phosphatase (38-126) U/L Total Creatine Kinase (30-135) U/L CK-MB (CK-2) (0.0-2.4) ng/mL CK-MB (CK-2) Rel Index Troponin I (0.000-0.034) ng/mL Total Protein (6.3-8.2) g/dL Albumin (3.5-5.0) g/dL Urine Color Light Yellow Urine Appearance Cloudy H (Clear) Urine pH 6.0 (5.0-8.0) Ur Specific [place] 1.007 (1.001-1.035) Urine Protein Negative (Negative) Urine Glucose (UA) Negative (Negative) Urine Ketones Negative (Negative) Urine Blood Negative (Negative) Urine Nitrite Positive H (Negative) Urine Bilirubin Negative (Negative) Urine Urobilinogen <2.0 (<2.0) mg/dL Ur Leukocyte Esterase Small H (Negative) Urine RBC 1 (0-5) /hpf Urine WBC 6 H (0-5) /hpf Ur Squamous Epith Cells 5 H (0-4) /hpf Amorphous Sediment Rare H (None) /hpf Urine Bacteria Moderate H (None) /hpf Hyaline Casts 19 H (0-2) /lpf Urine Mucus Rare H (None) /hpf Valproic Acid ug/mL Disposition Clinical Impression: Weakness, Debility, Hyperlipidemia, TIA (transient ischemic attack), UTI ( urinary tract infection), Lactic acidosis, Acute renal failure (ARF) Disposition: ADMITTED IP TO THIS HOSP Condition: Fair
[2018-04-16] MEDS: LISINOPRIL 20 MG TAB PO SCH (20:42)
[2018-04-16] MEDS: QUEtiapine 100 MG TAB PO SCH (20:43)
[2018-04-16] MEDS: SERTRALINE 25 MG TAB PO SCH (20:43)
[2018-04-16] MEDS: risperiDONE 2 MG TAB PO SCH (20:43)
[2018-04-16] MEDS: METOPROLOL TARTRATE 25 MG TAB PO SCH (20:43)
[2018-04-16] MEDS: metFORMIN 500 MG TAB PO SCH (20:44)
[2018-04-16] MEDS: traZODone HCL 50 MG TAB PO SCH (20:44)
[2018-04-16] MEDS: carBAMazepine 200 MG TAB PO SCH (22:02)
[2018-04-17] MEDS ORDERED: ENOXAPARIN 40 MG/0.4 ML SYRINGE SQ SCH (09:00)
[2018-04-17] MEDS: CLOPIDOGREL 75 MG TAB PO SCH (09:06)
[2018-04-17] MEDS: SERTRALINE 100 MG TAB PO SCH (09:07)
[2018-04-17] MEDS: PANTOPRAZOLE 40 MG TABLET PO SCH (09:07)
[2018-04-17] MEDS: metFORMIN 500 MG TAB PO SCH ×2 (09:07→20:14)
[2018-04-17] MEDS: METOPROLOL TARTRATE 25 MG TAB PO SCH ×2 (09:08→20:14)
[2018-04-17] MEDS: ISOSORBIDE MONONITRATE ER 30 MG TAB.ER.24H PO SCH (09:08)
[2018-04-17] MEDS: TROSPIUM CHLORIDE 20 MG TABLET PO SCH ×2 (09:09→20:14)
[2018-04-17] MEDS: POTASSIUM CHLORIDE ER 20 MEQ TAB.ER PO SCH (09:09)
[2018-04-17] MEDS: FUROSEMIDE 40 MG TAB PO SCH (09:09)
[2018-04-17] MEDS: carBAMazepine 200 MG TAB PO SCH ×3 (09:10→20:14)
--- NOTE | 2018-04-17 15:56 | PN ---
PROGRESS NOTE CHIEF COMPLAINT: Urinary tract infection, acidosis and encephalopathy. HISTORY OF PRESENT ILLNESS: This lady seems to be stable, but her caregiver reports that she recently before coming in was having episodes of blank spells or stares with frequent falling. She does have a seizure disorder, and it is wondered if this could be a component of that. PHYSICAL EXAMINATION: She is awake and alert. Color is fairly good. Chest is clear and the cardiac exam is normal. IMPRESSION: 1. Encephalopathy. 2. Urinary tract infection. 3. Seizure disorder. PLAN: Further evaluate her neurologic status and rule out possibility of escape seizures. MMODL / IJN: [id number] /
[2018-04-17] MEDS: risperiDONE 2 MG TAB PO SCH ×2 (16:50→20:14)
[2018-04-17] MEDS: QUEtiapine 100 MG TAB PO SCH (20:14)
[2018-04-17] MEDS: LISINOPRIL 20 MG TAB PO SCH (20:14)
[2018-04-17] MEDS: SERTRALINE 25 MG TAB PO SCH (20:14)
[2018-04-17] MEDS: traZODone HCL 50 MG TAB PO SCH (20:14)
--- NOTE | 2018-04-17 23:50 | HP ---
HISTORY AND PHYSICAL CHIEF COMPLAINT: Confusion, mental status changes, urinary tract infection, dizziness and weakness. HISTORY OF PRESENT ILLNESS: This is the first known admission for this 62-year-old female who lives in a [facility]. There are very few details available. She apparently had a change in status and is brought to the emergency room where she was found to have UTI. She does have seizures. REVIEW OF SYSTEMS: Unobtainable. Past medical history, family history, personal and social histories are unobtainable. PHYSICAL EXAMINATION: Blood pressure 142/78 with a pulse of 88, respirations of 29. She is afebrile. In general, she appeared to be slightly overweight and in no acute distress. She was pale. Head, ears, eyes, nose, mouth, and throat were normal. Neck veins not distended. Carotids normal. Chest is clear. Cardiac exam is normal. Abdomen is soft, nontender. Extremities are normal. Neurologically she had cognitive impairment and could not comprehend questions or perform responses. Head, ears, eyes, nose, mouth, and throat were normal. Chest is clear. Cardiac exam is normal sinus rhythm and the abdomen is protuberant, soft, nontender. EXTREMITIES: Normal. Neurologically, she seemed to have significant, cognizant deficit, but she had no lateralizing symptoms. IMPRESSION: 1. Unexplained generalized weakness. 2. Lactic acidosis. 3. Dizziness. 4. Urinary tract infection. 5. Mental debility. PLAN: 1. Bed rest. 2. IV fluids. 3. Treat UTI. 4. Investigate into the etiology of her weakness. MMODL / IJN: [id number] /
[2018-04-18] MEDS: ENOXAPARIN 30 MG/0.3 ML SYRINGE SQ SCH (09:16)
[2018-04-18] MEDS: carBAMazepine 200 MG TAB PO SCH ×3 (09:17→21:57)
[2018-04-18] MEDS: TROSPIUM CHLORIDE 20 MG TABLET PO SCH ×2 (09:17→21:57)
[2018-04-18] MEDS: risperiDONE 2 MG TAB PO SCH ×2 (09:18→21:57)
[2018-04-18] MEDS: metFORMIN 500 MG TAB PO SCH (09:18)
[2018-04-18] MEDS: SERTRALINE 100 MG TAB PO SCH (09:18)
[2018-04-18] MEDS: CLOPIDOGREL 75 MG TAB PO SCH (09:18)
[2018-04-18] MEDS: ISOSORBIDE MONONITRATE ER 30 MG TAB.ER.24H PO SCH (09:18)
[2018-04-18] MEDS: POTASSIUM CHLORIDE ER 20 MEQ TAB.ER PO SCH (09:18)
[2018-04-18] MEDS: METOPROLOL TARTRATE 25 MG TAB PO SCH (09:18)
[2018-04-18] MEDS: FUROSEMIDE 40 MG TAB PO SCH (09:18)
[2018-04-18] MEDS: PANTOPRAZOLE 40 MG TABLET PO SCH (09:19)
--- NOTE | 2018-04-18 13:03 | PN ---
PROGRESS NOTE CHIEF COMPLAINT: Urinary tract infection, mental debility and possible seizures. HISTORY OF PRESENT ILLNESS: This lady continues to remain stable. We are looking into whether or not she has an active seizure problem. She is being followed by Neurology. PHYSICAL EXAM: She is afebrile. Vital signs are normal. Head, ears, eyes, nose, mouth, and throat seem normal. Chest is clear. Cardiac exam is normal. Abdomen is soft and nontender. IMPRESSION: 1. Urinary tract infection. 2. ? seizure disorder. 3. Mental debility. PLAN: Continue with neurologic evaluation and workup. MMODL / IJN: [id number] /
--- NOTE | 2018-04-18 21:17 | P.CNNES ---
History of Present Illness Consult date: 04/18/18 Requesting physician: Rivera Del Toro Reason for Consult: seizure Chief complaint: seizure History of Present Illness: Neurology is consulting on a 62 year old female for syncope rule out breakthrough seizure. Patient does have known seizure disorder and is on seizure medication in the home setting. Patient takes Tegretol 300 mg 3 times a day. Patient is cognitively impaired/mentally challenged. She is a poor historian but states that when she ambulates she will intermittently have a sensation that her legs want to give out. This activity that she claims is potential breakthrough seizure. When inquiring further, it appears that the patient perceives syncopal-like activity and seizure as the same. It also appears that the patient perceives lower extremity weakness/debility as seizure. After further inquiry with the patient she believes that these occurrences have been happening intermittently while she ambulates with differing degrees of strenuous activity. She denies any back pain. She describes the sensation as lower extremity heaviness, weakness and then a sensation that her legs want to buckle out from under her. She does not describe activity consistent with true breakthrough seizure. She denies any oral trauma. She does have routine bowel and bladder incontinence on a regular basis which makes differentiation difficult but the patient states that it is no greater than baseline. On contact, patient is seated in bedside chair in the room, resting in no acute distress. 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 hx includes:heart stent x1,tia,uti, pt stated in past took meds for thyroid",egd feb 2018- superficial ulcers Last Myocardial Infarction Date:: N/A History of Any Multi-Drug Resistant Organisms: None Reported Past Surgical History: Heart Catheterization With Stent, Tubal Ligation Additional Past Surgical History / Comment(s): feb 2018 egd Past Anesthesia/Blood Transfusion Reactions: No Reported Reaction Date of Last Stent Placement:: unk Past Psychological History: Bipolar, Depression, Schizophrenia Additional Psychological History / Comment(s): pt stated she lives at [facility] in [place],uses walker when up Smoking Status: Current every day smoker Past Alcohol Use History: None Reported Additional Past Alcohol Use History / Comment(s): started smoking at age 18, smokes 7 cig per day which is down from 1/2 ppd Past Drug Use History: None Reported - Past Family History Mother Additional Family Medical History / Comment(s): in sleep Father Family Medical History: Myocardial Infarction (NE) Medications and Allergies Home Medications Medication Instructions Recorded Confirmed Type Cholecalciferol (Vitamin D3) 2,000 unit PO DAILY 02/14/17 04/16/18 History [Vitamin D3] Clopidogrel Bisulfate [Plavix] 75 mg PO DAILY 02/14/17 04/16/18 History Furosemide [Lasix] 40 mg PO DAILY 02/14/17 04/16/18 History Isosorbide Mononitrate ER [Imdur] 30 mg PO DAILY 02/14/17 04/16/18 History Potassium Chloride [Klor-Con 20] 20 meq PO DAILY 02/14/17 04/16/18 History QUEtiapine [SEROquel] 100 mg PO HS 02/14/17 04/16/18 History Solifenacin Succinate [Vesicare] 10 mg PO DAILY 02/14/17 04/16/18 History carBAMazepine [TEGretol] 300 mg PO TID 02/14/17 04/16/18 History risperiDONE [RisperDAL] 2 mg PO BID 02/14/17 04/16/18 History Atorvastatin [Lipitor] 40 mg PO HS 03/05/18 04/16/18 History Cyanocobalamin (Vitamin B-12) 2,500 mcg PO DAILY 03/05/18 04/16/18 History [Vitamin B12] Lisinopril 20 mg PO HS 03/05/18 04/16/18 History Loratadine [Claritin] 10 mg PO DAILY 03/05/18 04/16/18 History Metoprolol Tartrate [Lopressor] 25 mg PO BID 03/05/18 04/16/18 History Sertraline [Zoloft] 25 mg PO HS 03/05/18 04/16/18 History Sertraline [Zoloft] 100 mg PO DAILY 03/05/18 04/16/18 History metFORMIN HCL ER [Glucophage Xr] 500 mg PO HS 11/08/18 12/20/18 History traZODone HCL 50 mg PO HS 03/05/18 04/16/18 History Black Cohosh 160 mg PO DAILY 04/16/18 04/16/18 History Pantoprazole [Protonix] 40 mg PO DAILY 04/16/18 04/16/18 History Allergies Allergy/AdvReac Type Severity Reaction Status Date / Time grapefruit AdvReac Itching Verified 04/16/18 16:21 Penicillins AdvReac Itching Verified 04/16/18 16:21 Physical Examination - Vital Signs Vital Signs: Vital Signs Temp Pulse Resp BP Pulse Ox 04/18/18 14:43 98.2 F 76 16 94/57 100 04/18/18 09:16 100 04/18/18 07:00 98.7 F 85 16 123/63 100 04/17/18 23:00 98.6 F 76 18 91/52 95 Intake and Output 04/18/18 04/18/18 04/18/18 06:59 14:59 22:59 Intake Total 240 238 Balance 240 238 Intake: Oral 240 238 Other: Voiding Method Bedside Commode # Voids 2 3 # Bowel Movements 4 General appearance: Alert & oriented x3, no apparent distress, cognitively impaired. Head: Atraumatic, normocephalic, normal inspection Eyes: PERRLA, EOMI. Ear, nose and throat: Normal exam, mucous membranes moist Neck: Normal inspection, absent tenderness, lymphadenopathy. Respiratory: No increased work of breathing Cardiovascular: Regular rate, rhythm GI/abdominal: No guarding, no rigidity Extremities: moves all extremities, lower extremities weak Neurological: cranial nerves II through XII intact no lateralizing weakness, Bilateral lower extremity weakness no seizure activity noted on physical exam no pronator drift and no nystagmus. Strength: upper extremity stronger than lower extremities Sensation: Left lower extremity: normal Right lower extremity: normal Left upper extremity: normal Right upper extremity:normal Psychological: Mood and Affect appropriate for setting Results - Laboratory Findings CBC and BMP: 04/16/18 15:08 04/16/18 15:08 Abnormal Lab Findings: Abnormal Labs 04/16/18 04/16/18 04/16/18 15:08 15:08 15:08 RBC 3.68 L Hgb 9.3 L Hct 30.5 L MCHC 30.3 L RDW 16.6 H APTT BUN 37 H Creatinine 1.84 H Glucose 124 H Plasma Lactic Acid Valerio Total Creatine Kinase 136 H Urine Appearance Urine Nitrite Ur Leukocyte Esterase Urine WBC Ur Squamous Epith Cells Amorphous Sediment Urine Bacteria Hyaline Casts Urine Mucus 04/16/18 04/16/18 04/16/18 15:08 15:08 15:51 RBC Hgb Hct MCHC RDW APTT 16.5 L BUN Creatinine Glucose Plasma Lactic Acid Valerio 3.7 H* Total Creatine Kinase Urine Appearance Cloudy H Urine Nitrite Positive H Ur Leukocyte Esterase Small H Urine WBC 6 H Ur Squamous Epith Cells 5 H Amorphous Sediment Rare H Urine Bacteria Moderate H Hyaline Casts 19 H Urine Mucus Rare H 04/16/18 17:50 RBC Hgb Hct MCHC RDW APTT BUN Creatinine Glucose Plasma Lactic Acid Valerio 2.1 H* Total Creatine Kinase Urine Appearance Urine Nitrite Ur Leukocyte Esterase Urine WBC Ur Squamous Epith Cells Amorphous Sediment Urine Bacteria Hyaline Casts Urine Mucus Assessment and Plan (1) Debility Narrative/Plan: Physical exam, patient does have lower extremity weakness which does require consult by PT and OT. This does appear to be an ongoing problem for the patient. It also appears that this is also being potentially confused by the patient as the underlying etiology for possible sensation of breakthrough seizure. Further discussion once the results of EEG are obtained. Current Visit: Yes Status: Acute Code(s): R53.81 - OTHER MALAISE SNOMED Code(s): 12786826 (2) UTI (urinary tract infection) Narrative/Plan: Defer to primary team Continue to correct underlying etiology Recommend use of newer generation antibiotics for treatment as a general recommendation to reduce risk of BT seizure dt reduced seizure threshold with use of older generation antibiotics. Current Visit: Yes Status: Acute Code(s): N39.0 - URINARY TRACT INFECTION, SITE NOT SPECIFIED SNOMED Code(s): 16446283 (3) Weakness Narrative/Plan: As stated above Potentially Secondary to UTI and antibiotic use Current Visit: Yes Status: Acute Code(s): R53.1 - WEAKNESS SNOMED Code(s) : 89288884 (4) Near syncope Narrative/Plan: Patients symptoms are more consistent with presyncope versus seizure. Patients seizure medication is within therapeutic window at this time. Patients CT brain is unremarkable, EEG is pending. Patient has tele-monitoring in place, Current Visit: No Status: Acute Code(s): R55 - SYNCOPE AND COLLAPSE SNOMED Code(s): 094800910 (5) Seizure disorder Narrative/Plan: Patient's medications at this time appear appropriate and within therapeutic window Continue with medication as implemented pending results of EEG and carotid doppler for further differentiation between syncope and BT seizure. Symptoms more consistent with near syncope and lower extremity weakness/ debility at this time versus BT seizure. Continue seizure precautions until EEG results are received No medication changes at this time Notify neurology with any break through seizure for further recommendations and seizure medication adjustments. Current Visit: No Status: Acute Code(s): G40.909 - EPILEPSY, UNSP, NOT INTRACTABLE, WITHOUT STATUS EPILEPTICUS SNOMED Code(s): 079169279 Plan: Status: Neurology will continue to follow and provide updates as needed or warranted. Contact our office with any questions I have discussed the plan of care with the physician prior to implementation and he agrees with the plan as implemented.
[2018-04-18] MEDS: traZODone HCL 50 MG TAB PO SCH (21:57)
[2018-04-18] MEDS: SERTRALINE 25 MG TAB PO SCH (21:57)
[2018-04-18] MEDS: QUEtiapine 100 MG TAB PO SCH (21:57)
[2018-04-19] MEDS: METOPROLOL TARTRATE 25 MG TAB PO SCH ×3 (01:16→21:35)
[2018-04-19] MEDS: LISINOPRIL 20 MG TAB PO SCH ×2 (01:16→21:35)
--- NOTE | 2018-04-19 08:34 | US ---
EXAMINATION TYPE: US carotid duplex BILAT DATE OF EXAM: 04/19/2018 COMPARISON: US 02/14/2017 CLINICAL HISTORY: near syncope. EXAM MEASUREMENTS: RIGHT: Peak Systolic Velocity (PSV) cm/sec ----- Right CCA: 86.0 ----- Right ICA: 89.2 ----- Right ECA: 96.8 ICA/CCA ratio: 1.0 RIGHT: End Diastole cm/sec ----- Right CCA: 23.3 ----- Right ICA: 24.5 ----- Right ECA: 11.1 LEFT: Peak Systolic Velocity (PSV) cm/sec ----- Left CCA: 69.3 ----- Left ICA: 82.2 ----- Left ECA: 98.4 ICA/CCA ratio: 1.2 LEFT: End Diastole cm/sec ----- Left CCA: 19.2 ----- Left ICA: 28.9 ----- Left ECA: 14.4 VERTEBRALS (direction of flow): Right Vertebral: Antegrade Left Vertebral: Antegrade Rhythm: Normal Suboptimal study per technologist due to patient's body habitus and limited movement. Grayscale image s redemonstrate severe diffuse plaque is prominent at bilateral carotid bulbs. Velocity measurements and ratios in visualized portion of both internal carotid arteries however remain within normal limit s. IMPRESSION: Persistent severe diffuse atherosclerotic plaque without hemodynamically significant fredy nosis clearly seen in either internal carotid artery. No significant change from prior. Criteria for Assigning % of Stenosis / Diameter reduction (Estimation based on the indirect measurements of the internal carotid artery velocities (ICA PSV). 1. Normal (no stenosis)=ICA PSV < 125 cm/s: ratio < 2.0: ICA EDV<40 cm/s. 2. Less than 50% stenosis=ICA PSV < 125 cm/s: ratio < 2.0: ICA EDV<40 cm/s. 3. 50 to 69% stenosis=ICA PSV of 125 to 230 cm/s: ration 2.0 ? 4.0: ICA EDV 40-100 cm/s. 4. Greater than 70% stenosis to near occlusion= ICA PSV > 230 cm/s: ratio > 4.0: ICA EDV > 100 cm/s. 5. Near occlusion= ICA PSV velocities may be low or undetectable: variable ratio and ICA EDV. 6. Total occlusion=unable to detect flow.
[2018-04-19] MEDS: CLOPIDOGREL 75 MG TAB PO SCH (09:01)
[2018-04-19] MEDS: TROSPIUM CHLORIDE 20 MG TABLET PO SCH ×2 (09:01→21:35)
[2018-04-19] MEDS: ENOXAPARIN 30 MG/0.3 ML SYRINGE SQ SCH (09:01)
[2018-04-19] MEDS: carBAMazepine 200 MG TAB PO SCH ×3 (09:01→21:35)
[2018-04-19] MEDS: ISOSORBIDE MONONITRATE ER 30 MG TAB.ER.24H PO SCH (09:01)
[2018-04-19] MEDS: SERTRALINE 100 MG TAB PO SCH (09:01)
[2018-04-19] MEDS: POTASSIUM CHLORIDE ER 20 MEQ TAB.ER PO SCH (09:02)
[2018-04-19] MEDS: FUROSEMIDE 40 MG TAB PO SCH (09:02)
[2018-04-19] MEDS: PANTOPRAZOLE 40 MG TABLET PO SCH (09:02)
[2018-04-19] MEDS: risperiDONE 2 MG TAB PO SCH ×2 (09:03→21:35)
--- NOTE | 2018-04-19 11:33 | EEG ---
ELECTROENCEPHALOGRAM REPORT DATE OF SERVICE: 04/18/2018. REASON FOR TESTING: Altered mental status. DESCRIPTION OF THE PROCEDURE: This EEG was performed using a 21 channel digital electroencephalograph, following international 10-20 system. DESCRIPTION OF THE RECORDING: From the beginning of the tracing, and with patient's eyes closed, the background rhythm was mostly consisting of 8 Hz alpha frequency in the posterior occipital leads. Photic stimulation was performed with a minimal driving response seen. No pathological waves were elicited. Hyperventilation was not performed. Occasional muscle and movement artifacts are seen. The patient remains awake throughout the tracing. No epileptiform discharges were seen. Her EKG lead showed a regular rate and rhythm. INTERPRETATION: This awake EEG can be considered within normal limits. There is no asymmetry seen. No epileptiform discharges were noticed. The absence of epileptiform discharges does not rule out the diagnosis of epilepsy; therefore clinical correlation is recommended. MMLELAND / MARCE: [id number] /
--- NOTE | 2018-04-19 13:33 | PN ---
PROGRESS NOTE CHIEF COMPLAINT: Lactic acidosis, urinary tract infection and mental status changes with possible seizures. HISTORY OF PRESENT ILLNESS: This lady remains fairly stable and there has been there been no new developments. She is being seen by Neurology. She can probably go back to the skilled nursing once workup is complete. She seems fairly stable at this time. MMODL / IJN: [id number] /
[2018-04-19] MEDS ORDERED: ACETAMINOPHEN TAB 325 MG TAB PO PRN (13:53)
--- NOTE | 2018-04-19 16:28 | P.PN ---
Subjective Progress Note Date: 04/19/18 Principal diagnosis: altered mental status Neurology is following in a 62-year-old female for altered mental status. rule out breakthrough seizure. Patient does have history of known seizure disorder and is on seizure medication in the home setting. Patient is on 300 mg of Tegretol 3 times a day. Patient is cognitively impaired/mentally challenged. She is a poor historian but states that when she ambulates she will intermittently have a sensation that her legs want to give out whcih is the activity that is potential "breakthrough seizure." It also appears that the patient perceives lower extremity weakness/debility a seizure. After further inquiry with the patient she believes that these occurrences have been happening intermittently while she ambulates with differing degrees of strenuous activity. She denies any back pain. She describes a sensation as lower extremity heaviness, weakness and then a sensation that her her legs want to buckle out from under her. She does not describe any activity consistent with true breakthrough seizure. She denies any oral trauma. She does have routine bowel and bladder incontinence on a regular basis which makes differentiation difficult but the patient states that it is no greater than baseline. Nursing states that patient has had no seizure-like activity since hospitalized. She does appear to have lower extremity weakness and does require assistance with ambulation and movement. On contact, patient is alert, seated in bed, resting in no acute distress. Objective - Vital Signs Vital signs: Vital Signs Temp 97.8 F 04/19/18 15:00 Pulse 83 04/19/18 15:00 Resp 16 04/19/18 15:00 BP 112/72 04/19/18 15:00 Pulse Ox 97 04/19/18 15:00 Intake & Output 04/18/18 04/19/18 04/19/18 18:59 06:59 18:59 Intake Total 238 675 Balance 238 675 Intake: Intake, IV Titration 50 Amount cefTRIAXone 1,000 mg In 50 Sodium Chloride 0.9% 50 ml @ 100 mls/hr IVPB Q12H [facility] Rx#:[id number] Oral 238 625 Other: Voiding Method Bedside Commode Bedside Commode Bedside Commode # Voids 3 1 4 # Bowel Movements 4 - Exam General appearance: Alert & oriented, no apparent distress. Head: Atraumatic, normocephalic, normal inspection Eyes: PERRLA, EOMI. Ear, nose and throat: Normal exam, mucous membranes moist Neck: Normal inspection, absent tenderness, lymphadenopathy. Respiratory: No increased work of breathing Cardiovascular: Regular rate, rhythm GI/abdominal: No guarding, no rigidity Extremities: moves all extremities Neurological: cranial nerves II through XII intact no lateralizing weakness, generalized bilateral lower extremity weakness no seizure activity noted on physical exam no pronator drift and no nystagmus. Strength: moves all 4 extremities Lower extremity weakness noted Sensation: Left lower extremity: normal Right lower extremity: normal Left upper extremity: normal Right upper extremity:normal Psychological: Mood and Affect appropriate for setting - Labs CBC & Chem 7: 04/16/18 15:08 04/16/18 15:08 Labs: Microbiology - Last 24 Hours (Table) 04/16/18 15:51 Urine Culture - Final Urine,Voided Escherichia coli 04/16/18 15:06 Blood Culture - Preliminary Blood No Growth after 48 hours Assessment and Plan (1) Debility Narrative/Plan: Physical exam, patient does have lower extremity weakness which does require consult by PT and OT. This does appear to be an ongoing problem for the patient. It also appears that this is also being potentially confused by the patient as the underlying etiology for possible sensation of breakthrough seizure. EEG is normal. Current Visit: Yes Status: Acute Code(s): R53.81 - OTHER MALAISE SNOMED Code(s): 79012536 (2) UTI (urinary tract infection) Narrative/Plan: Defer to primary team Continue to correct underlying etiology Recommend use of newer generation antibiotics for treatment as a general recommendation to reduce risk of BT seizure dt reduced seizure threshold with use of older generation antibiotics. Current Visit: Yes Status: Acute Code(s): N39.0 - URINARY TRACT INFECTION, SITE NOT SPECIFIED SNOMED Code(s): 74560528 (3) Weakness Narrative/Plan: As stated above Potentially Secondary to UTI and antibiotic use Current Visit: Yes Status: Acute Code(s): R53.1 - WEAKNESS SNOMED Code(s) : 46714393 (4) Near syncope Narrative/Plan: Patients symptoms are more consistent with presyncope versus seizure. Patients seizure medication is within therapeutic window at this time. Patients CT brain is unremarkable, EEG isnormal. Carotid Doppler notes severe atheromatous plaque but no hemodynamically significant stenosis. Current Visit: No Status: Acute Code(s): R55 - SYNCOPE AND COLLAPSE SNOMED Code(s): 953722304 (5) Seizure disorder Narrative/Plan: Patient's medications at this time appear appropriate and within therapeutic window Continue with medication as implemented EEG is normal Carotid Doppler notes atheromatous plaque is severe but no hemodynamically significant stenosis. Findings appear unchanged from previous exam. Symptoms more consistent with near syncope and lower extremity weakness/ debility at this time versus BT seizure. No medication changes at this time Current Visit: No Status: Acute Code(s): G40.909 - EPILEPSY, UNSP, NOT INTRACTABLE, WITHOUT STATUS EPILEPTICUS SNOMED Code(s): 327243121 Plan: Status: Neurology will clear the patient for discharge from a neurological standpoint. Contact our office with any questions I have discussed the plan of care with the physician prior to implementation and he agrees with the plan as implemented.
[2018-04-19] MEDS: SERTRALINE 25 MG TAB PO SCH (21:35)
[2018-04-19] MEDS: QUEtiapine 100 MG TAB PO SCH (21:35)
[2018-04-19] MEDS: traZODone HCL 50 MG TAB PO SCH (21:35)
[2018-04-20] MEDS: ISOSORBIDE MONONITRATE ER 30 MG TAB.ER.24H PO SCH (08:56)
[2018-04-20] MEDS: PANTOPRAZOLE 40 MG TABLET PO SCH (08:56)
[2018-04-20] MEDS: ENOXAPARIN 30 MG/0.3 ML SYRINGE SQ SCH (08:56)
[2018-04-20] MEDS: SERTRALINE 100 MG TAB PO SCH (08:56)
[2018-04-20] MEDS: POTASSIUM CHLORIDE ER 20 MEQ TAB.ER PO SCH (08:56)
[2018-04-20] MEDS: carBAMazepine 200 MG TAB PO SCH ×3 (08:56→21:51)
[2018-04-20] MEDS: METOPROLOL TARTRATE 25 MG TAB PO SCH ×2 (08:56→21:50)
[2018-04-20] MEDS: FUROSEMIDE 40 MG TAB PO SCH (08:56)
[2018-04-20] MEDS: TROSPIUM CHLORIDE 20 MG TABLET PO SCH ×2 (08:56→21:51)
[2018-04-20] MEDS: CLOPIDOGREL 75 MG TAB PO SCH (08:56)
[2018-04-20] MEDS: risperiDONE 2 MG TAB PO SCH ×2 (08:56→21:50)
--- NOTE | 2018-04-20 20:40 | PN ---
PROGRESS NOTE Doctors and they CHIEF COMPLAINT: Lactic acidosis, urinary tract infection, seizure disorder and mental debility. HISTORY OF PRESENT ILLNESS: This lady is stable and she continues to be seen by Neurology, but she can probably be discharged any time back to her facility. There has been no recent change in her condition. PHYSICAL EXAM: Hydration is good. Chest is clear. Cardiac exam is normal. The abdomen is slightly protuberant and soft. Extremities normal. IMPRESSION: 1. Mental debility. 2. Seizure disorder. 3. Urinary tract infection. 4. Initial lactic acidosis, resolved. PLAN: She can be discharged anytime. MMODL / IJN: [id number] /
[2018-04-20] MEDS: LISINOPRIL 20 MG TAB PO SCH (21:50)
[2018-04-20] MEDS: QUEtiapine 100 MG TAB PO SCH (21:50)
[2018-04-20] MEDS: SERTRALINE 25 MG TAB PO SCH (21:50)
[2018-04-20] MEDS: traZODone HCL 50 MG TAB PO SCH (21:50)
[2018-04-21 08:49] LABS: Calcium 9.1 mg/dL (8.4-10.2); Potassium 4.6 mmol/L (3.5-5.1)
[2018-04-21] MEDS: ENOXAPARIN 30 MG/0.3 ML SYRINGE SQ SCH (11:25)
[2018-04-21] MEDS: CLOPIDOGREL 75 MG TAB PO SCH (11:25)
[2018-04-21] MEDS: PANTOPRAZOLE 40 MG TABLET PO SCH (11:25)
[2018-04-21] MEDS: ISOSORBIDE MONONITRATE ER 30 MG TAB.ER.24H PO SCH (11:25)
[2018-04-21] MEDS: FUROSEMIDE 40 MG TAB PO SCH (11:25)
[2018-04-21] MEDS: SERTRALINE 100 MG TAB PO SCH (11:25)
[2018-04-21] MEDS: TROSPIUM CHLORIDE 20 MG TABLET PO SCH ×2 (11:36→23:17)
[2018-04-21] MEDS: carBAMazepine 200 MG TAB PO SCH ×3 (11:37→23:17)
[2018-04-21] MEDS: risperiDONE 2 MG TAB PO SCH ×2 (11:39→23:17)
[2018-04-21] MEDS: POTASSIUM CHLORIDE ER 20 MEQ TAB.ER PO SCH (11:42)
[2018-04-21] MEDS: METOPROLOL TARTRATE 25 MG TAB PO SCH ×2 (11:42→23:17)
[2018-04-21] MEDS: metFORMIN 500 MG TAB PO SCH (17:45)
[2018-04-21] MEDS: SERTRALINE 25 MG TAB PO SCH (23:17)
[2018-04-21] MEDS: LISINOPRIL 20 MG TAB PO SCH (23:17)
[2018-04-21] MEDS: QUEtiapine 100 MG TAB PO SCH (23:17)
[2018-04-21] MEDS: traZODone HCL 50 MG TAB PO SCH (23:17)
[2018-04-22] MEDS: metFORMIN 500 MG TAB PO SCH ×2 (08:16→17:27)
[2018-04-22] MEDS: CLOPIDOGREL 75 MG TAB PO SCH (08:16)
[2018-04-22] MEDS: ENOXAPARIN 30 MG/0.3 ML SYRINGE SQ SCH (08:16)
[2018-04-22] MEDS: SERTRALINE 100 MG TAB PO SCH (08:18)
[2018-04-22] MEDS: carBAMazepine 200 MG TAB PO SCH ×2 (08:18→16:17)
[2018-04-22] MEDS: ISOSORBIDE MONONITRATE ER 30 MG TAB.ER.24H PO SCH (08:18)
[2018-04-22] MEDS: FUROSEMIDE 40 MG TAB PO SCH (08:18)
[2018-04-22] MEDS: POTASSIUM CHLORIDE ER 20 MEQ TAB.ER PO SCH (08:18)
[2018-04-22] MEDS: PANTOPRAZOLE 40 MG TABLET PO SCH (08:18)
[2018-04-22] MEDS: risperiDONE 2 MG TAB PO SCH (08:19)
[2018-04-22] MEDS: TROSPIUM CHLORIDE 20 MG TABLET PO SCH (08:20)
[2018-04-22] MEDS: METOPROLOL TARTRATE 25 MG TAB PO SCH (08:22)
[2018-04-22 15:25] VITALS: BP 126/76; PULSE 84; RESP 16; TEMP 98.6
[2018-04-22] MEDS ORDERED: CEPHALEXIN 500 MG CAP PO SCH (18:00)
--- NOTE | 2018-04-22 18:07 | PN ---
PROGRESS NOTE DATE OF SERVICE: 04/21/2018 CHIEF COMPLAINT: Encephalopathy, lactic acidosis and urinary tract infection. HISTORY OF PRESENT ILLNESS: This lady is stable and we are awaiting word that she has a place to go to when she is discharged. It is not clear if she will go back to the facility that she was in or not. MMODL / IJN: [id number] /
--- NOTE | 2018-04-22 18:16 | DS ---
DISCHARGE SUMMARY CHIEF COMPLAINT: Mental status changes, urinary tract infection, lactic acidosis and syncopal event. HISTORY OF PRESENT ILLNESS AND PHYSICAL EXAMINATION: The details of this lady's history and physical can be found in the initial workup. COURSE IN THE HOSPITAL: After admission she was placed on bedrest, started on intravenous fluids, and failed to have any significant difficulty. They were concerned at the home that she may be having seizures, and she was referred to Neurology, who subjected her to an extensive workup, but no conclusions were reached. She was doing well and it was felt that she could be returned to the home on April 22. She will go back on her usual activity, diet and medication. FINAL DIAGNOSES: 1. Lactic acidosis. 2. Urinary tract infection. 3. Mental debility. 4. Possible seizure disorder. OPERATIONS: None. CONSULTATIONS: Neurology. She is improved. CANDE / MARCE: [id number] /
== END 2018-04-22 18:27 | disposition home health service (06) | DRG 690 ==
LOC: EC 14:42 → 4SSUR 16:35
PROVIDERS: ADMIT Family Medicine; ATTEND Family Medicine
DX: N39.0 Urinary tract infection, site not specified (principal); E87.2 Acidosis; G93.40 Encephalopathy, unspecified; F20.9 Schizophrenia, unspecified; R15.9 Full incontinence of feces; R32 Unspecified urinary incontinence; G40.909 Epilepsy, unspecified, not intractable, without status epilepticus; F31.9 Bipolar disorder, unspecified; E78.5 Hyperlipidemia, unspecified; I10 Essential (primary) hypertension; I25.10 Atherosclerotic heart disease of native coronary artery without angina pectoris; I25.2 Old myocardial infarction; E07.9 Disorder of thyroid, unspecified; F17.210 Nicotine dependence, cigarettes, uncomplicated; Z79.02 Long term (current) use of antithrombotics/antiplatelets; Z79.84 Long term (current) use of oral hypoglycemic drugs; Z79.899 Other long term (current) drug therapy; Z86.73 Personal history of transient ischemic attack (TIA), and cerebral infarction without residual deficits; Z95.5 Presence of coronary angioplasty implant and graft; Z98.51 Tubal ligation status; Z88.0 Allergy status to penicillin; Z91.018 Allergy to other foods; Z82.49 Family history of ischemic heart disease and other diseases of the circulatory system
CPT/HCPCS: 36415; 70450; 80048; 80053; 80156; 80164; 81001; 82550; 82553; 83605; 83735; 84100; 84484; 85025; 85610; 85730; 87040; 87077; 87086; 87186; 93005; 93880; 94760; 95816; 96360; 96361; 99285

== ENCOUNTER 2018-05-09 11:31 | Inpatient (IN) | payer MEDICARE, BC ==
[2018-05-09] MEDS ORDERED: SODIUM CHLORIDE 0.9% 1,000 ML IV STA (12:12)
--- NOTE | 2018-05-09 12:18 | ED ---
General Adult HPI - General Source: patient, EMS, RN notes reviewed Mode of arrival: EMS Limitations: no limitations <Alejandro St - Last Filed: 05/09/18 12:14> <Prince Cuevas - Last Filed: 05/09/18 18:58> - General Chief complaint: Syncope Stated complaint: Syncope Time Seen by Provider: 05/09/18 11:55 - History of Present Illness Initial comments: This is a 62-year-old female presents emergency Department after having a unresponsive episode. Patient states she felt fine prior to the episode and after the episode. Patient states she doesn't remember the episode. No one is with the patient indicated how long she was unresponsive. Patient states she has no symptoms whatsoever. No further history is available this time. (Alejandro St) - Related Data Home Medications Medication Instructions Recorded Confirmed Cholecalciferol (Vitamin D3) 2,000 unit PO DAILY 02/14/17 05/09/18 [Vitamin D3] Clopidogrel Bisulfate [Plavix] 75 mg PO DAILY 02/14/17 05/09/18 Isosorbide Mononitrate ER [Imdur] 30 mg PO DAILY 02/14/17 05/09/18 Potassium Chloride [Klor-Con 20] 20 meq PO DAILY 02/14/17 05/09/18 QUEtiapine [SEROquel] 100 mg PO HS 02/14/17 05/09/18 Solifenacin Succinate [Vesicare] 10 mg PO DAILY 02/14/17 05/09/18 carBAMazepine [TEGretol] 300 mg PO TID 02/14/17 05/09/18 risperiDONE [RisperDAL] 2 mg PO BID 02/14/17 05/09/18 Atorvastatin [Lipitor] 40 mg PO HS 03/05/18 05/09/18 Loratadine [Claritin] 10 mg PO DAILY 03/05/18 05/09/18 Metoprolol Tartrate [Lopressor] 25 mg PO BID 03/05/18 05/09/18 Sertraline [Zoloft] 25 mg PO HS 03/05/18 05/09/18 Sertraline [Zoloft] 100 mg PO DAILY 03/05/18 05/09/18 metFORMIN HCL ER [Glucophage Xr] 500 mg PO HS 03/05/18 05/09/18 Acetaminophen Tab [Tylenol] 650 mg PO TID PRN 05/09/18 05/09/18 Cyanocobalamin (Vitamin B-12) 1,000 mcg PO DAILY 05/09/18 05/09/18 [Vitamin B-12] Diphenoxylate HCl/Atropine 1 tab PO TID PRN 05/09/18 05/09/18 [Lomotil 2.5-0.025 mg Tablet] LORazepam [Ativan] 1 - 2 mg PO TID PRN 05/09/18 05/09/18 Lisinopril [Zestril] 10 mg PO DAILY 05/09/18 05/09/18 Sennosides/Docusate Sodium 1 tab PO BID PRN 05/09/18 05/09/18 [Senna-S Laxative Tablet] diphenhydrAMINE [Benadryl] 25 mg PO TID PRN 05/09/18 05/09/18 Previous Rx's Medication Instructions Recorded Furosemide [Lasix] 40 mg PO DAILY tab 04/22/18 Allergies Allergy/AdvReac Type Severity Reaction Status Date / Time cranberry AdvReac Unknown Verified 05/09/18 12:36 grapefruit AdvReac Itching Verified 05/09/18 12:36 Penicillins AdvReac Itching Verified 05/09/18 12:36 Review of Systems ROS Other: All systems not noted in ROS Statement are negative. <Alejandro St - Last Filed: 05/09/18 12:14> ROS Other: All systems not noted in ROS Statement are negative. <Prince Cuevas - Last Filed: 05/09/18 18:58> ROS Statement: Those systems with pertinent positive or pertinent negative responses have been documented in the HPI. 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 hx includes:heart stent x1,tia,uti, pt stated in past took meds for thyroid",egd feb 2018- superficial ulcers Last Myocardial Infarction Date:: N/A History of Any Multi-Drug Resistant Organisms: None Reported Past Surgical History: Heart Catheterization With Stent, Tubal Ligation Additional Past Surgical History / Comment(s): feb 2018 egd Past Anesthesia/Blood Transfusion Reactions: No Reported Reaction Date of Last Stent Placement:: unk Past Psychological History: Bipolar, Depression, Schizophrenia Smoking Status: Current every day smoker Past Alcohol Use History: None Reported Past Drug Use History: None Reported - Past Family History Mother Additional Family Medical History / Comment(s): in sleep Father Family Medical History: Myocardial Infarction ([place]) <Alejandro St - Last Filed: 05/09/18 12:14> General Exam Limitations: no limitations <Alejandro St - Last Filed: 05/09/18 12:14> <Prince Cuevas - Last Filed: 05/09/18 18:58> - General Exam Comments Initial Comments: GENERAL: Patient is well-developed and well-nourished. Patient is nontoxic and well- hydrated and is in no acute distress. ENT: Neck is soft and supple. No significant lymphadenopathy is noted. Oropharynx is clear. Moist mucous membranes. Neck has full range of motion without eliciting any pain. EYES: The sclera were anicteric and conjunctiva were pink and moist. Extraocular movements were intact and pupils were equal round and reactive to light. Eyelids were unremarkable. PULMONARY: Unlabored respirations. Good breath sounds bilaterally. No audible rales rhonchi or wheezing was noted. CARDIOVASCULAR: There is a regular rate and rhythm without any murmurs gallops or rubs. ABDOMEN: Soft and nontender with normal bowel sounds. No palpable organomegaly was noted. There is no palpable pulsatile mass. SKIN: Skin is clear with no lesions or rashes and otherwise unremarkable. NEUROLOGIC: Patient is alert and oriented x3. Cranial nerves II through XII are grossly intact. Motor and sensory are also intact. Normal speech, volume and content. Symmetrical smile. MUSCULOSKELETAL: Normal extremities with adequate strength and full range of motion. LYMPHATICS: No significant lymphadenopathy is noted PSYCHIATRIC: Normal psychiatric evaluation. (Alejandro St) Course <Alejandro St - Last Filed: 05/09/18 12:14> <Prince Cuevas - Last Filed: 05/09/18 18:58> Vital Signs 05/09/18 05/09/18 05/09/18 11:55 12:35 15:30 Temperature 98.7 F Pulse Rate 90 89 Pulse Rate [ 93 Right Sitting Pulse Oximetery ] Pulse Rate [ 97 Right Standing] Pulse Rate [ 90 Right Supine Pulse Oximetery ] Respiratory 16 15 Rate Blood Pressure 109/65 130/97 Blood Pressure 135/87 [Right Arm Sitting] Blood Pressure 122/66 [Right Arm Standing] Blood Pressure 121/67 [Right Arm Supine] O2 Sat by Pulse 98 97 Oximetry 05/09/18 18:00 Temperature Pulse Rate 92 Pulse Rate [ Right Sitting Pulse Oximetery ] Pulse Rate [ Right Standing] Pulse Rate [ Right Supine Pulse Oximetery ] Respiratory 18 Rate Blood Pressure Blood Pressure [Right Arm Sitting] Blood Pressure [Right Arm Standing] Blood Pressure [Right Arm Supine] O2 Sat by Pulse 96 Oximetry - Reevaluation(s) Reevaluation #1: 05/09/18 18:58 The patient was endorsed me by Dr. St at the end of his shift. Pending CAT scan results. The CAT scan shows no evidence of PE however there is evidence of 2 masses noted in the left upper lobe. Additionally there is evidence a UTI. I did discuss case the patient with Dr. Anthony patient will be admitted. Pulmonary medicine will be consulted (Prince Cuevas) Medical Decision Making <Alejandro St - Last Filed: 05/09/18 12:14> - Lab Data Result diagrams: 05/09/18 12:00 05/09/18 12:00 <Prince Cuevas - Last Filed: 05/09/18 18:58> - Medical Decision Making EKG shows normal sinus rhythm at 90 bpm OK interval and 6 QRS is 84 QT interval 364 QTC is 445. EKG shows no ST segment elevation or depression. (Alejandro St) - Lab Data Lab Results 05/09/18 05/09/18 05/09/18 Range/Units 12:00 12:00 12:00 WBC 6.9 (3.8-10.6) k/uL RBC 3.74 L (3.80-5.40) m/uL Hgb 9.4 L (11.4-16.0) gm/dL Hct 31.2 L (34.0-46.0) % MCV 83.3 (80.0-100.0) fL MCH 25.2 (25.0-35.0) pg MCHC 30.3 L (31.0-37.0) g/dL RDW 19.7 H (11.5-15.5) % Plt Count 183 (150-450) k/uL Neutrophils % 76 % Lymphocytes % 15 % Monocytes % 6 % Eosinophils % 1 % Basophils % 0 % Neutrophils # 5.3 (1.3-7.7) k/uL Lymphocytes # 1.0 (1.0-4.8) k/uL Monocytes # 0.4 (0-1.0) k/uL Eosinophils # 0.1 (0-0.7) k/uL Basophils # 0.0 (0-0.2) k/uL Hypochromasia Moderate Anisocytosis Slight Microcytosis Slight PT (9.0-12.0) sec INR (<1.2) APTT (22.0-30.0) sec D-Dimer (<0.60) mg/L FEU Sodium 141 (137-145) mmol/L Potassium 4.7 (3.5-5.1) mmol/L Chloride 106 (98-107) mmol/L Carbon Dioxide 25 (22-30) mmol/L Anion Gap 10 mmol/L BUN 23 H (7-17) mg/dL Creatinine 1.44 H (0.52-1.04) mg/dL Est GFR (CKD-EPI)AfAm 44 (>60 ml/min/1.73 sqM) Est GFR (CKD-EPI)NonAf 39 (>60 ml/min/1.73 sqM) Glucose 160 H (74-99) mg/dL Calcium 9.3 (8.4-10.2) mg/dL Magnesium 1.6 (1.6-2.3) mg/dL Total Bilirubin 0.4 (0.2-1.3) mg/dL AST 15 (14-36) U/L ALT 17 (9-52) U/L Alkaline Phosphatase 76 (38-126) U/L Total Creatine Kinase 54 (30-135) U/L CK-MB (CK-2) 0.3 (0.0-2.4) ng/mL CK-MB (CK-2) Rel Index 0.6 Troponin I <0.012 (0.000-0.034) ng/mL Total Protein 6.8 (6.3-8.2) g/dL Albumin 3.8 (3.5-5.0) g/dL Urine Color Urine Appearance (Clear) Urine pH (5.0-8.0) Ur Specific Collins (1.001-1.035) Urine Protein (Negative) Urine Glucose (UA) (Negative) Urine Ketones (Negative) Urine Blood (Negative) Urine Nitrite (Negative) Urine Bilirubin (Negative) Urine Urobilinogen (<2.0) mg/dL Ur Leukocyte Esterase (Negative) Urine RBC (0-5) /hpf Urine WBC (0-5) /hpf Ur Squamous Epith Cells (0-4) /hpf Urine Bacteria (None) /hpf Hyaline Casts (0-2) /lpf Urine Mucus (None) /hpf 05/09/18 05/09/18 Range/Units 13:45 16:50 WBC (3.8-10.6) k/uL RBC (3.80-5.40) m/uL Hgb (11.4-16.0) gm/dL Hct (34.0-46.0) % MCV (80.0-100.0) fL MCH (25.0-35.0) pg MCHC (31.0-37.0) g/dL RDW (11.5-15.5) % Plt Count (150-450) k/uL Neutrophils % % Lymphocytes % % Monocytes % % Eosinophils % % Basophils % % Neutrophils # (1.3-7.7) k/uL Lymphocytes # (1.0-4.8) k/uL Monocytes # (0-1.0) k/uL Eosinophils # (0-0.7) k/uL Basophils # (0-0.2) k/uL Hypochromasia Anisocytosis Microcytosis PT 10.5 (9.0-12.0) sec INR 1.0 (<1.2) APTT 18.1 L (22.0-30.0) sec D-Dimer 1.64 H (<0.60) mg/L FEU Sodium (137-145) mmol/L Potassium (3.5-5.1) mmol/L Chloride (98-107) mmol/L Carbon Dioxide (22-30) mmol/L Anion Gap mmol/L BUN (7-17) mg/dL Creatinine (0.52-1.04) mg/dL Est GFR (CKD-EPI)AfAm (>60 ml/min/1.73 sqM) Est GFR (CKD-EPI)NonAf (>60 ml/min/1.73 sqM) Glucose (74-99) mg/dL Calcium (8.4-10.2) mg/dL Magnesium (1.6-2.3) mg/dL Total Bilirubin (0.2-1.3) mg/dL AST (14-36) U/L ALT (9-52) U/L Alkaline Phosphatase (38-126) U/L Total Creatine Kinase (30-135) U/L CK-MB (CK-2) (0.0-2.4) ng/mL CK-MB (CK-2) Rel Index Troponin I (0.000-0.034) ng/mL Total Protein (6.3-8.2) g/dL Albumin (3.5-5.0) g/dL Urine Color Yellow Urine Appearance Cloudy H (Clear) Urine pH 5.5 (5.0-8.0) Ur Specific Collins 1.006 (1.001-1.035) Urine Protein Negative (Negative) Urine Glucose (UA) Negative (Negative) Urine Ketones Negative (Negative) Urine Blood Trace H (Negative) Urine Nitrite Positive H (Negative) Urine Bilirubin Negative (Negative) Urine Urobilinogen <2.0 (<2.0) mg/dL Ur Leukocyte Esterase Large H (Negative) Urine RBC 3 (0-5) /hpf Urine WBC 47 H (0-5) /hpf Ur Squamous Epith Cells 3 (0-4) /hpf Urine Bacteria Occasional H (None) /hpf Hyaline Casts 8 H (0-2) /lpf Urine Mucus Rare H (None) /hpf Disposition <Alejandro St - Last Filed: 05/09/18 12:14> <Prince Cuevas - Last Filed: 05/09/18 18:58> Clinical Impression: Vasovagal syncope, Urinary tract infection, Lung mass Disposition: ADMITTED IP TO THIS HOSP Condition: Stable Referrals: Guido Duron MD [Primary Care Provider] - 1-2 days
[2018-05-09 12:39] LABS: Anisocytosis Slight; Basophils % (A) 0 %; Eosinophils # (A) 0.1 k/uL (0-0.7); Eosinophils % (A) 1 %; HCT 31.2 % (34.0-46.0); HGB 9.4 gm/dL (11.4-16.0); Hypochromasia Moderate; Lymphocytes % (A) 15 %; MCH 25.2 pg (25.0-35.0); MCHC 30.3 g/dL (31.0-37.0); MCV 83.3 fL (80.0-100.0); Mean Platelet Volume 9.3; Microcytosis Slight; Monocytes # (A) 0.4 k/uL (0-1.0); Monocytes % (A) 6 %; Neutrophils # (A) 5.3 k/uL (1.3-7.7); Neutrophils % (A) 76 %; Platelet Count 183 k/uL (150-450); RBC 3.74 m/uL (3.80-5.40); RDW 19.7 % (11.5-15.5); WBC 6.9 k/uL (3.8-10.6)
--- NOTE | 2018-05-09 12:46 | XR ---
EXAMINATION TYPE: XR chest 2V DATE OF EXAM: 05/09/2018 HISTORY: Chest Pain. REFERENCE: Previous study dated 03/05/2018. FINDINGS: The heart is mildly enlarged. There is mild vascular congestion without interstitial change . Pleural spaces appear clear. IMPRESSION: MILD CARDIOMEGALY WITH MILD VASCULAR CONGESTION.
[2018-05-09 12:51] LABS: Albumin 3.8 g/dL (3.5-5.0); Calcium 9.3 mg/dL (8.4-10.2); Magnesium 1.6 mg/dL (1.6-2.3); Potassium 4.7 mmol/L (3.5-5.1); Total Bilirubin 0.4 mg/dL (0.2-1.3); Total Protein 6.8 g/dL (6.3-8.2)
[2018-05-09 13:05] LABS: Creatine Kinase 54 U/L (30-135)
[2018-05-09 13:19] LABS: Creatine Kinase MB 0.3 ng/mL (0.0-2.4); Troponin I <0.012 ng/mL (0.000-0.034)
[2018-05-09 15:08] LABS: Prothrombin Time 10.5 sec (9.0-12.0)
[2018-05-09 15:11] LABS: Partial Thromboplastin Time 18.1 sec (22.0-30.0)
[2018-05-09 15:12] LABS: D-Dimer 1.64 mg/L FEU (<0.60)
[2018-05-09] MEDS ORDERED: SODIUM CHLORIDE 0.9% 1,000 ML IV ONE (15:16)
[2018-05-09 17:32] LABS: Appearance,Urine Cloudy (Clear); Bacteria,Urine Occasional /hpf; Bilirubin,Urine Negative (Negative); Blood,Urine Trace (Negative); Color,Urine Yellow; Glucose,Urine (UA) Negative (Negative); Hyaline Casts,Urine 8 /lpf (0-2); Ketones,Urine Negative (Negative); Leukocyte Esterase,Urine Large (Negative); Mucus,Urine Rare /hpf; Nitrite,Urine Positive (Negative); PH, Urine 5.5 (5.0-8.0); Protein,Urine Negative (Negative); RBC,Urine 3 /hpf (0-5); Specific Gravity,Urine 1.006 (1.001-1.035); Squamous Epithelial Cell,Urine 3 /hpf (0-4); Urobilinogen,Urine <2.0 mg/dL (<2.0); WBC,Urine 47 /hpf (0-5)
--- NOTE | 2018-05-09 17:41 | CT ---
EXAMINATION TYPE: CT chest angio for PE DATE OF EXAM: 05/09/2018 COMPARISON: Prior chest x-ray 05/09/2017 HISTORY: Chest pain, syncope, abnormal chest x-ray CT DLP: 689.1 mGycm Automated exposure control for dose reduction was used. CONTRAST: CT Chest for pulmonary embolism performed with with IV Contrast, patient injected with 80 mL of Isovu e 370. FINDINGS: LUNGS: There is a right upper lobe lung mass measuring approximately 2 cm in diameter, likely there i s extension to the pleural surface, with lobulated margins are present. Additionally and soft tissue mass is present at the level of the inferior pulmonary vein on the right measuring approximately 2 cm in greatest dimension MEDIASTINUM: There is satisfactory enhancement of the pulmonary artery and its branches, there is no CT evidence for pulmonary embolism. There are no greater than 1 cm hilar or mediastinal lymph nodes. No pericardial effusion is seen. AORTA: No additional significant abnormality is seen. OTHER: Dependent focus of hypoattenuation in the gallbladder compatible with stone. IMPRESSION: No evident pulmonary embolism. 2 right lung soft tissue masses, consider metastatic disease.
[2018-05-09] MEDS ORDERED: NALOXONE 0.4 MG/ML 1 ML VIAL IV PRN (18:59)
[2018-05-09] MEDS ORDERED: diphenhydrAMINE 25 MG CAP PO PRN (19:06)
[2018-05-09] MEDS ORDERED: DIPHENOX-ATROP 2.5-0.025 MG 1 EACH TAB PO PRN (19:06)
[2018-05-09] MEDS ORDERED: LORazepam 0.5 MG TAB PO PRN (19:06)
[2018-05-09] MEDS ORDERED: SENNOSIDES-DOCUSATE SODIUM 1 EACH TAB PO PRN (19:06)
[2018-05-09] MEDS ORDERED: ACETAMINOPHEN TAB 325 MG TAB PO PRN (19:06)
[2018-05-09] MEDS: QUEtiapine 100 MG TAB PO SCH (21:08)
[2018-05-09] MEDS: risperiDONE 2 MG TAB PO SCH (21:09)
[2018-05-09] MEDS: carBAMazepine 200 MG TAB PO SCH (21:09)
[2018-05-09] MEDS: SERTRALINE 25 MG TAB PO SCH (21:09)
[2018-05-09] MEDS: metFORMIN 500 MG TAB PO SCH (21:11)
[2018-05-09] MEDS: ATORVASTATIN 40 MG TAB PO SCH (21:11)
[2018-05-09] MEDS: METOPROLOL TARTRATE 25 MG TAB PO SCH (21:11)
[2018-05-10] MEDS: metFORMIN 500 MG TAB PO SCH ×2 (09:26→21:34)
[2018-05-10] MEDS: POTASSIUM CHLORIDE ER 20 MEQ TAB.ER PO SCH (09:27)
[2018-05-10] MEDS: LISINOPRIL 10 MG TAB PO SCH (09:27)
[2018-05-10] MEDS: METOPROLOL TARTRATE 25 MG TAB PO SCH ×2 (09:27→21:34)
[2018-05-10] MEDS: CHOLECALCIFEROL 1,000 UNIT TAB PO SCH (09:27)
[2018-05-10] MEDS: CYANOCOBALAMIN 500 MCG TAB PO SCH (09:27)
[2018-05-10] MEDS: CLOPIDOGREL 75 MG TAB PO SCH (09:27)
[2018-05-10] MEDS: FUROSEMIDE 40 MG TAB PO SCH (09:28)
[2018-05-10] MEDS: LORATADINE 10 MG TAB PO SCH (09:28)
[2018-05-10] MEDS: ISOSORBIDE MONONITRATE ER 30 MG TAB.ER.24H PO SCH (09:28)
[2018-05-10] MEDS: carBAMazepine 200 MG TAB PO SCH ×3 (09:29→21:34)
[2018-05-10] MEDS: risperiDONE 2 MG TAB PO SCH ×2 (09:31→21:34)
[2018-05-10] MEDS: SERTRALINE 100 MG TAB PO SCH (09:31)
[2018-05-10] MEDS: TROSPIUM CHLORIDE 20 MG TABLET PO SCH ×2 (09:31→21:34)
--- NOTE | 2018-05-10 12:36 | P.CNPUL ---
History of Present Illness Consult date: 05/10/18 Requesting physician: Michael Anthony Reason for consult: other Chief complaint: 2 right lung soft tissue masses, rule out metastatic disease History of present illness: This is 62-year-old -[place] female patient of Dr. Duron, visiting physician, resides in the [facility], and his past medical history of coronary artery disease and previous stenting, previous CVA/TIA, hypertension, hyperlipidemia, previous episode of myocardial infarction, seizure disorder, hypothyroidism, bipolar disorder, depression, schizophrenia, current every day smoker is brought into the emergency department by ambulance on 05/09/2018 for evaluation of an unresponsive episode at the [facility]. Patient was reportedly feeling fine prior to the episode, there is no report as to how long she was unresponsive. Following episode, patient did not have any symptoms. No specific complaints, no chest pain, no difficulty breathing, no lightheadedness or dizziness. Urinalysis revealed evidence of a urinary tract infection. Chest x-ray revealed cardiomegaly with mild vascular congestion. D- dimer was elevated at 1.64, CT angios of the chest was negative for any evidence of pulmonary embolism, but it did show a right upper lobe lung mass measuring approximately 2 cm in diameter with extension to the pleural surface with lobulated margins. And additionally a soft tissue mass at the level of the inferior pulmonary vein on the right measuring approximately 2 cm. There were no greater than 1 cm hilar or mediastinal lymph nodes, no pericardial effusion. The 2 right lung pulmonary masses or suspicious for metastatic disease. He denies any prior history of cancer. She states she did have her mammogram a year ago, with no abnormality found. Patient was recently hospitalized with a urinary tract infection with sepsis, patient did have syncopal episodes with seizure activity during that admission and she was evaluated by neurology. EEG was within normal limits. Brain CT did not show any acute intracranial hemorrhage, did show mild to moderate diffuse age- related cerebral atrophy and chronic small vessel ischemic changes. Carotid Dopplers showed persistent severe diffuse atherosclerotic plaque without hemodynamically significant stenosis. Labs showed a PVC of 6.9, hemoglobin of 9.4, INR 1.0, electrodes were within normal limits, BUN is 23 and creatinine was 1.44. Patient was given IV fluid boluses of 2 L 0.9 normal saline in the emergency department. She has been afebrile, has any pulmonary symptoms, no cough, no shortness of breath, no hemoptysis. Urine culture is pending, patient was started on Rocephin. Review of Systems All systems: negative Constitutional: Denies chills, Denies fever Eyes: denies blurred vision, denies pain Ears, nose, mouth and throat: Denies headache, Denies sore throat Cardiovascular: Denies chest pain, Denies shortness of breath Respiratory: Denies cough Gastrointestinal: Denies abdominal pain, Denies diarrhea, Denies nausea, Denies vomiting Genitourinary: Denies dysuria, Denies hematuria Musculoskeletal: Denies myalgias Integumentary: Denies pruritus, Denies rash Neurological: Denies numbness, Denies weakness Psychiatric: Denies anxiety, Denies depression Endocrine: Denies fatigue, Denies weight change Past Medical History Past Medical History: Coronary Artery Disease (CAD), CVA/TIA, Diabetes Mellitus , Hyperlipidemia, Hypertension, Myocardial Infarction ([place]), Seizure Disorder, Thyroid Disorder Additional Past Medical History / Comment(s): pt stated she had a pne vaccine but not 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 hx includes:heart stent x1,tia,uti, pt stated in past took meds for thyroid",egd feb 2018- superficial ulcers; borderline dm, does not have sugars checked Last Myocardial Infarction Date:: N/A History of Any Multi-Drug Resistant Organisms: None Reported Past Surgical History: Heart Catheterization With Stent, Tubal Ligation Additional Past Surgical History / Comment(s): feb 2018 egd Past Anesthesia/Blood Transfusion Reactions: No Reported Reaction Date of Last Stent Placement:: unk Past Psychological History: Bipolar, Depression, Schizophrenia Additional Psychological History / Comment(s): pt stated she lives at [facility] in [facility],uses walker when up Smoking Status: Current every day smoker Past Alcohol Use History: None Reported Additional Past Alcohol Use History / Comment(s): started smoking at age 18, smokes 7 cig per day which is down from 1/2 ppd Past Drug Use History: None Reported - Past Family History Mother Additional Family Medical History / Comment(s): in sleep Father Family Medical History: Myocardial Infarction ([place]) Medications and Allergies Home Medications Medication Instructions Recorded Confirmed Type Cholecalciferol (Vitamin D3) 2,000 unit PO DAILY 02/14/17 05/09/18 History [Vitamin D3] Clopidogrel Bisulfate [Plavix] 75 mg PO DAILY 02/14/17 05/09/18 History Isosorbide Mononitrate ER [Imdur] 30 mg PO DAILY 02/14/17 05/09/18 History Potassium Chloride [Klor-Con 20] 20 meq PO DAILY 02/14/17 05/09/18 History QUEtiapine [SEROquel] 100 mg PO HS 02/14/17 05/09/18 History Solifenacin Succinate [Vesicare] 10 mg PO DAILY 02/14/17 05/09/18 History carBAMazepine [TEGretol] 300 mg PO TID 02/14/17 05/09/18 History risperiDONE [RisperDAL] 2 mg PO BID 02/14/17 05/09/18 History Atorvastatin [Lipitor] 40 mg PO HS 03/05/18 05/09/18 History Loratadine [Claritin] 10 mg PO DAILY 03/05/18 05/09/18 History Metoprolol Tartrate [Lopressor] 25 mg PO BID 03/05/18 05/09/18 History Sertraline [Zoloft] 25 mg PO HS 03/05/18 05/09/18 History Sertraline [Zoloft] 100 mg PO DAILY 03/05/18 05/09/18 History metFORMIN HCL ER [Glucophage Xr] 500 mg PO HS 03/05/18 05/09/18 History Furosemide [Lasix] 40 mg PO DAILY tab 04/22/18 05/09/18 Rx Acetaminophen Tab [Tylenol] 650 mg PO TID PRN 05/09/18 05/09/18 History Cyanocobalamin (Vitamin B-12) 1,000 mcg PO DAILY 05/09/18 05/09/18 History [Vitamin B-12] Diphenoxylate HCl/Atropine 1 tab PO TID PRN 05/09/18 05/09/18 History [Lomotil 2.5-0.025 mg Tablet] LORazepam [Ativan] 1 - 2 mg PO TID PRN 05/09/18 05/09/18 History Lisinopril [Zestril] 10 mg PO DAILY 05/09/18 05/09/18 History Sennosides/Docusate Sodium 1 tab PO BID PRN 05/09/18 05/09/18 History [Senna-S Laxative Tablet] diphenhydrAMINE [Benadryl] 25 mg PO TID PRN 05/09/18 05/09/18 History Allergies Allergy/AdvReac Type Severity Reaction Status Date / Time cranberry AdvReac Unknown Verified 05/09/18 12:36 grapefruit AdvReac Itching Verified 05/09/18 12:36 Penicillins AdvReac Itching Verified 05/09/18 12:36 Physical Exam Vitals: Vital Signs Temp Pulse Pulse Pulse Pulse Resp BP 05/10/18 05:29 98.1 F 93 18 05/09/18 21:00 98.2 F 92 18 05/09/18 19:33 98.8 F 05/09/18 19:19 93 18 131/65 05/09/18 18:00 92 18 05/09/18 15:30 89 15 130/97 05/09/18 12:35 93 97 90 BP BP BP Pulse Ox 05/10/18 05:29 116/57 96 05/09/18 21:00 148/67 95 05/09/18 19:33 05/09/18 19:19 96 05/09/18 18:00 96 05/09/18 15:30 97 05/09/18 12:35 135/87 122/66 121/67 Intake and Output 05/09/18 05/10/18 05/10/18 22:59 06:59 14:59 Other: Voiding Method Bedside Commode Bedside Commode Diaper Diaper Incontinent Incontinent # Voids 1 2 1 Weight 100.5 kg GENERAL EXAM: Alert, pleasant, 62-year-old -[place] obese female, quite , withdrawn, comfortable in no apparent distress. HEAD: Normocephalic/atraumatic. EYES: Normal reaction of pupils, equal size. Conjunctiva pink, sclera white. NOSE: Clear with pink turbinates. THROAT: No erythema or exudates. NECK: No masses, no JVD, no thyroid enlargement, no adenopathy. CHEST: No chest wall deformity. Symmetrical expansion. LUNGS: Equal air entry with no crackles, wheeze, rhonchi or dullness. CVS: Regular rate and rhythm, normal S1 and S2, no gallops, no murmurs, no rubs ABDOMEN: Soft, nontender. No hepatosplenomegaly, normal bowel sounds, no guarding or rigidity. EXTREMITIES: No clubbing, no edema, no cyanosis, 2+ pulses and upper and lower extremities. MUSCULOSKELETAL: Muscle strength and tone normal. SPINE: No scoliosis or deformity SKIN: No rashes CENTRAL NERVOUS SYSTEM: Alert and oriented -3. No focal deficits, tone is normal in all 4 extremities. PSYCHIATRIC: Alert and oriented -3. Appropriate affect. Intact judgment and insight. Results - Laboratory Findings CBC and BMP: 05/09/18 12:00 05/09/18 12:00 PT/INR, D-dimer PT 10.5 sec (9.0-12.0) 05/09/18 13:45 INR 1.0 (<1.2) 05/09/18 13:45 D-Dimer 1.64 mg/L FEU (<0.60) H 05/09/18 13:45 Abnormal lab findings: Abnormal Labs 05/09/18 05/09/18 05/09/18 12:00 12:00 13:45 RBC 3.74 L Hgb 9.4 L Hct 31.2 L MCHC 30.3 L RDW 19.7 H APTT 18.1 L D-Dimer 1.64 H BUN 23 H Creatinine 1.44 H Glucose 160 H Urine Appearance Urine Blood Urine Nitrite Ur Leukocyte Esterase Urine WBC Urine Bacteria Hyaline Casts Urine Mucus 05/09/18 16:50 RBC Hgb Hct MCHC RDW APTT D-Dimer BUN Creatinine Glucose Urine Appearance Cloudy H Urine Blood Trace H Urine Nitrite Positive H Ur Leukocyte Esterase Large H Urine WBC 47 H Urine Bacteria Occasional H Hyaline Casts 8 H Urine Mucus Rare H - Diagnostic Findings Chest x-ray: report reviewed, image reviewed CT scan - chest: report reviewed, image reviewed Additional studies: EKG reviewed Assessment and Plan Plan: Assessment: #1. Right upper lobe lung mass measuring 2 cm in diameter with extension to the pleural surface, and 2 cm mass at the level of the inferior pulmonary vein on the right, rule out metastatic disease #2. [facility] episode at the [facility], and the duration was unknown #3. Acute urinary tract infection with sepsis #4. Recent hospitalization for acute urinary tract infection with sepsis, presyncopal episodes, and seizure activity. Urine cultures were positive for E. coli #5. Acute kidney injury #6. Elevated d-dimer, she angios chest negative for any evidence of pulmonary embolism #7. History of coronary artery disease with previous stenting #8. History of CVA/TIA #9. Seizure disorder #10. Hypertension, hyperlipidemia #11. Myocardial infarction #12. History of bipolar, depression, schizophrenia #13. Recurrent every day smoker Plan: We will obtain CT of abdomen and pelvis with IV and oral contrast, but in view of elevated renal function, we'll hydrate the patient, increased IV fluids 2.9 normal saline at a rate of 75 ML per hour, repeat blood work in the morning, if renal function has improved her seen with the CT. The 2 right lung masses are suspicious for metastatic disease. Patient denies any prior history of cancer. Will need outpatient PET scan and bronchoscopy with biopsies. Consult medical oncology, we'll continue to follow I performed a history & physical examination of the patient and discussed their management with my nurse practitioner, Katie Whelan. I reviewed the nurse practitioner's note and agree with the documented findings and plan of care. Lung sounds are diminished at the bases with limited crackles. The findings and the impression was discussed with the patient. I attest to the documentation by the nurse practitioner. Time with Patient: Greater than 30
[2018-05-10] MEDS: SODIUM CHLORIDE 0.9% 1,000 ML IV SCH (12:53)
--- NOTE | 2018-05-10 19:22 | HP ---
HISTORY AND PHYSICAL DATE OF ADMISSION: May 09, 2018. DATE OF SERVICE: May 10, 2018. PRESENTING COMPLAINT: Passed out. HISTORY OF PRESENTING COMPLAINT: This is a pleasant 62 -year-old patient being followed by [facility]. Chronic stable medical conditions include hypertension, hyperlipidemia, coronary artery disease with stent, diabetes, bipolar, urinary incontinence. The patient lives at a retirement called [facility] and uses a walker to get about. The patient yet had her lunch, was sitting at the coffee table, took 2-3 steps to get there. The patient then actually passed out maybe for about 6 minutes. There was no seizure activity reported. No tongue-biting or incontinence. There was no chest pain or palpitation. The patient often times gets dizzy on standing up. Does use a walker. The patient just less than a month ago was in the hospital and also was here maybe a month prior at the hospital. Had a neurological workup done. Doppler did not show any critical stenosis. EEG was negative for seizure activity. CT scan of the brain was nonspecific. On this admission, the patient's chest CTA showed right upper lobe lung mass with extension of the pleural service for which Pulmonary was consulted. Denies any chest pain or palpitation. REVIEW OF SYSTEMS: CONSTITUTIONAL: Tired. HEENT: None. RESPIRATORY: None. CARDIOVASCULAR: None. GASTROINTESTINAL: None. GENITOURINARY: None. MUSCULOSKELETAL: Some pain in the joints. DERMATOLOGICAL: None. HEMATOLOGICAL: None. LYMPHATICS: None. PSYCHIATRY: Slightly forgetful. NEUROLOGICAL: None. PAST MEDICAL HISTORY: Of hypertension, hyperlipidemia, coronary artery disease with stent, bipolar, diabetes, urinary incontinence, TIA. PAST SURGICAL HISTORY: Cardiac cath with stent, tubal ligation. PSYCH HISTORY: Of bipolar disorder with schizophrenia. SOCIAL HISTORY: Lives in a retirement called [facility]. Uses a walker. Smokes about half a pack a day for close to 40 years. No alcohol. FAMILY HISTORY: Myocardial infarction. HOME MEDICATIONS: 1. Benadryl 25 mg t.i.d. p.r.n. 2. Tylenol 650 mg t.i.d. p.r.n. 3. Senna-S 1 tab p.o. b.i.d. p.r.n. 4. Ativan 1-2 mg p.o. t.i.d. p.r.n. 5. Lomotil 1 tablet p.o. t.i.d. p.r.n. 6. Glucophage XR 500 mg q.h.s. 7. Tegretol 300 mg p.o. t.i.d. 8. Potassium 20 mEq p.o. daily. 9. Claritin 10 mg p.o. daily. 10.Vitamin B12 1000 mcg p.o. daily. 11.Zoloft 25 mg q.h.s., 100 mg in the morning. 12.Zestril 10 mg p.o. daily. 13.Imdur ER 30 mg p.o. daily. 14.Risperdal 2 mg p.o. b.i.d. 15.VESIcare 10 mg p.o. daily. 16.Seroquel 100 mg q.h.s. 17.Lopressor 25 mg b.i.d. 18.Lasix 40 mg p.o. daily. 19.Plavix 75 mg p.o. daily. 20.Vitamin D3 2000 units p.o. daily. 21.Lipitor 40 mg q.h.s. ALLERGIES: TO CRANBERRY, GRAPEFRUIT, PENICILLIN. PHYSICAL EXAMINATION: VITAL SIGNS: On examination vital signs on presentation: Temperature 98.7, pulse 90, respiration 16, blood pressure 109/65. Orthostatic was negative. Pulse ox 98% on room air. GENERAL APPEARANCE: Well built, BMI 38. Lying in bed, tired-appearing. EYES: Pupils equal. Conjunctivae normal. HEENT: External appearance of nose and ears normal. Oral cavity normal. NECK: JVD unable to assess. Mass not palpable. RESPIRATORY: Effort normal. LUNGS: Diminished breath sounds. CARDIOVASCULAR: 1st and 2nd sounds normal. No edema. ABDOMEN: Soft, nontender. Liver and spleen not palpable. LYMPHATICS: No lymph nodes palpable in the neck or axilla. PSYCHIATRY: Alert and orient x3. Mood and affect normal. INVESTIGATIONS: White count 6.9, hemoglobin 9.4, platelets 183, potassium 4.7, BUN 23, creatinine 1.44. The patient's creatinine on April 24 was 0.98. EKG tracing personally reviewed by me shows nonspecific ST-segment changes. Chest x-ray film personally reviewed by me shows some prominence of venous structures. Chest x-ray report reports the same. Chest CTA showing 2 lung mass on the right side. ASSESSMENT: 1. This patient presents episode of passing out, likely vasovagal. The patient has had neurological workup very recently with negative CT scan of the brain. EEG, Doppler all being negative. 2. Right-sided two lung masses strongly suspicious for malignancy in a patient who has been a long-standing smoker. 3. Chronic nicotine dependence, patient active cigarette smoker. 4. Essential hypertension. 5. Hyperlipidemia. 6. Coronary artery disease with stent. 7. Diabetes mellitus, type 2 on oral hypoglycemics. 8. Bipolar disorder. 9. Chronic gait dysfunction uses a walker at the baseline. PLAN: Home medications are resumed. Pulmonary was consulted. They wanted a CT scan of the abdomen and pelvis. Oncology will be consulted for the same. Care was discussed with the patient. Copy to visiting physicians. MMODL / IJN: [id number] /
[2018-05-10] MEDS: QUEtiapine 100 MG TAB PO SCH (21:34)
[2018-05-10] MEDS: SERTRALINE 25 MG TAB PO SCH (21:34)
[2018-05-10] MEDS: ATORVASTATIN 40 MG TAB PO SCH (21:34)
[2018-05-11] MEDS: SODIUM CHLORIDE 0.9% 1,000 ML IV SCH ×2 (02:19→16:19)
[2018-05-11 07:57] LABS: Potassium 4.4 mmol/L (3.5-5.1)
[2018-05-11] MEDS: LORATADINE 10 MG TAB PO SCH (09:20)
[2018-05-11] MEDS: carBAMazepine 200 MG TAB PO SCH ×3 (09:20→20:19)
[2018-05-11] MEDS: TROSPIUM CHLORIDE 20 MG TABLET PO SCH ×2 (09:21→20:19)
[2018-05-11] MEDS: CHOLECALCIFEROL 1,000 UNIT TAB PO SCH (09:21)
[2018-05-11] MEDS: POTASSIUM CHLORIDE ER 20 MEQ TAB.ER PO SCH (09:22)
[2018-05-11] MEDS: risperiDONE 2 MG TAB PO SCH ×2 (09:22→20:19)
[2018-05-11] MEDS: METOPROLOL TARTRATE 25 MG TAB PO SCH ×2 (09:23→20:22)
[2018-05-11] MEDS: CYANOCOBALAMIN 500 MCG TAB PO SCH (09:23)
[2018-05-11] MEDS: metFORMIN 500 MG TAB PO SCH ×2 (09:23→20:15)
[2018-05-11] MEDS: LISINOPRIL 10 MG TAB PO SCH (09:26)
[2018-05-11] MEDS: CLOPIDOGREL 75 MG TAB PO SCH (09:29)
[2018-05-11] MEDS: FUROSEMIDE 40 MG TAB PO SCH (09:32)
[2018-05-11] MEDS: ISOSORBIDE MONONITRATE ER 30 MG TAB.ER.24H PO SCH (09:32)
[2018-05-11] MEDS: IOPAMIDOL-300 CONTRAST 30 ML VIAL (ORAL USE) PO PRN ×2 (09:34→10:30)
[2018-05-11] MEDS: SERTRALINE 100 MG TAB PO SCH (09:35)
--- NOTE | 2018-05-11 11:51 | CT ---
EXAMINATION TYPE: CT abdomen pelvis w con DATE OF EXAM: 05/11/2018 COMPARISON: Correlation PE chest 05/09/2018 HISTORY: 62-year-old female rule out malignant process, abnormal CT chest TECHNIQUE: Contiguous axial scanning of the abdomen and pelvis following administration of 100 ml Iso veto 300 IV contrast. Delayed images through the kidneys and coronal/sagittal reconstructions perform ed. CT DLP: 3635 mGycm Automated exposure control for dose reduction was used. FINDINGS: Heart upper limits of normal in size without pericardial effusion. Redemonstrated right mid lung pulm onary nodule. Currently, this measures 1.4 x 1.0 cm versus 2.0 x 1.2 cm, previously. Unclear if this size difference is due to differences in technique. No focal liver lesion or biliary ductal dilatation. Portal venous system is patent. Gallbladder, adrenal glands, kidneys, spleen, and pancreas appear within normal limits. No dilated small bowel, free fluid, or free air. There are some surgical material in the right lower quadrant. Appendix is visualized. Mild to moderate stool burden. No pericolonic inflammatory change. Moderate atherosclerotic calcifications infrarenal abdominal aorta and iliac arteries with fusiform e ctasia at 2.5 cm. No mesenteric or retroperitoneal lymphadenopathy identified. Bladder urine distended. There is bulging laxity of the levator ani musculature compatible with pelvi c floor relaxation. Uterus and small ovaries are visualized. No abnormal fluid collection in the pelv is or pelvic lymphadenopathy seen. Bones: Degenerative changes at the hips and pubic symphysis as well as the bilateral SI joints. Sclerotic fo cus with stellate margins left superior acetabulum likely bone island. Facet arthropathy mid to lower lumbar spine. Endplate spondylosis lower thoracic spine. No osseous destructive process. IMPRESSION: 1. THE PATIENT'S RIGHT MIDLUNG PULMONARY NODULE CURRENTLY MEASURES 1.4 X 1.0 CM VERSUS 2.0 X 1.2 CM O N 05/09/2018. UNCERTAIN IF THIS SIZE DIFFERENCE IS DUE TO DIFFERENCES IN IMAGING TECHNIQUE. NEOPLASM R EMAINS TO BE EXCLUDED. IF PATIENT IS FELT TO BE LOW RISK FOR METASTATIC DISEASE AND INFLAMMATORY PROC ESS IS SUSPECTED, SHORT INTERVAL FOLLOW-UP SUCH IN 3 WEEKS MAY BE CONSIDERED. IF HIGHER SUSPICION FOR MALIGNANCY, CONSIDER PET/CT. 2. NO SUSPICIOUS MASS OR LYMPHADENOPATHY IDENTIFIED IN THE ABDOMEN OR PELVIS.
--- NOTE | 2018-05-11 14:34 | P.PN ---
Subjective Progress Note Date: 05/11/18 62-year-old female patient, was hospitalized because of imbalance, disequilibrium and falls. The patient was having unsteady gait. MRI of the brain is in progress at dose further further investigation for an underlying unsteadiness. Note that the patient also has multiple medical problems including coronary artery disease, previous coronary stenting, previous CVA, hypertension, hyperlipidemia, seizure disorder, hypothyroidism, bipolar disorder /schizophrenia/depression. She is a chronic smoker. She lives in a half-way. The CAT scan of the chest showed 2 pulmonary nodular the dominant one was in the right upper lobe and this raises concern for malignancy. The CAT scan of the abdomen and pelvis was also done that showed that the right lung lesion was measuring 1.4 x 1 cm versus 2 x 1.2 cm. The the cause for the final size of the lesion is not known. Could be technical. In any rate, we have made recommendations for outpatient PET scan for this patient regarding further workup for any metastatic malignancy/disease. She has no cough. No sputum production. No hemoptysis. No previous exposure to TB. No previous bouts of pneumonias. Objective - Vital Signs Vital signs: Vital Signs Temp 97.9 F 05/11/18 11:29 Pulse 81 05/11/18 11:29 Resp 16 05/11/18 11:29 BP 139/72 05/11/18 11:29 Pulse Ox 97 05/11/18 11:29 Intake & Output 05/10/18 05/11/18 05/11/18 18:59 06:59 18:59 Intake Total 1080 Balance 1080 Intake: Intake, IV Titration 600 Amount Sodium Chloride 0.9% 1, 600 000 ml @ 75 mls/hr IV . [id number] [facility] Rx#:[id number] Oral 480 Other: Voiding Method Bedside Commode Bedside Commode Diaper Diaper Incontinent Incontinent # Voids 1 1 1 # Bowel Movements 1 1 - Exam GENERAL EXAM: Alert, pleasant, 62-year-old -Irish obese female, quite , withdrawn, comfortable in no apparent distress. HEAD: Normocephalic/atraumatic. EYES: Normal reaction of pupils, equal size. Conjunctiva pink, sclera white. NOSE: Clear with pink turbinates. THROAT: No erythema or exudates. NECK: No masses, no JVD, no thyroid enlargement, no adenopathy. CHEST: No chest wall deformity. Symmetrical expansion. LUNGS: Equal air entry with no crackles, wheeze, rhonchi or dullness. CVS: Regular rate and rhythm, normal S1 and S2, no gallops, no murmurs, no rubs ABDOMEN: Soft, nontender. No hepatosplenomegaly, normal bowel sounds, no guarding or rigidity. EXTREMITIES: No clubbing, no edema, no cyanosis, 2+ pulses and upper and lower extremities. MUSCULOSKELETAL: Muscle strength and tone normal. SPINE: No scoliosis or deformity SKIN: No rashes CENTRAL NERVOUS SYSTEM: Alert and oriented -3. No focal deficits, tone is normal in all 4 extremities. PSYCHIATRIC: Alert and oriented -3. Appropriate affect. Intact judgment and insight. - Labs CBC & Chem 7: 05/09/18 12:00 05/11/18 07:20 Labs: Abnormal Lab Results - Last 24 Hours (Table) 05/11/18 Range/Units 07:20 Chloride 113 H (98-107) mmol/L BUN 23 H (7-17) mg/dL Creatinine 1.20 H (0.52-1.04) mg/dL Glucose 103 H (74-99) mg/dL Microbiology - Last 24 Hours (Table) 05/09/18 16:50 Urine Culture - Preliminary Urine,Voided Gram Neg Bacilli Assessment and Plan Plan: #1. Right upper lobe lung mass measuring 2 cm in diameter with extension to the pleural surface, and 2 cm mass at the level of the inferior pulmonary vein on the right, rule out metastatic disease. The CAT scan of the abdomen did not show any new abnormalities. There was some size difference in between the 2 scans in regards to the right lung pulmonary nodule. In any rate, further workup on outpatient basis will be needed regarding the possibility of metastatic disease. Primary lung cancer cannot be completely excluded. Meanwhile, the patient is having significant imbalance and gait difficulties in addition to previous history of syncope. The patient will be requiring an MRI of the brain. #2. Syncopal episode at the half-way, and the duration was unknown #3. Acute urinary tract infection with sepsis #4. Recent hospitalization for acute urinary tract infection with sepsis, presyncopal episodes, and seizure activity. Urine cultures were positive for E. coli #5. Acute kidney injury #6. Elevated d-dimer, she angios chest negative for any evidence of pulmonary embolism #7. History of coronary artery disease with previous stenting #8. History of CVA/TIA #9. Seizure disorder #10. Hypertension, hyperlipidemia #11. Myocardial infarction #12. History of bipolar, depression, schizophrenia #13. Recurrent every day smoker Plan Proceed with an MRI of the brain. Can be discharged home if the MRI of the brain is negative. Outpatient PET scan and further decisions regarding bronchoscopy and biopsy if needed.
--- NOTE | 2018-05-11 18:10 | P.CONS ---
History of Present Illness - Reason for Consult Consult date: 05/11/18 New Lung Masses Requesting physician: Katie Whelan - Chief Complaint Dizziness and light headed - History of Present Illness This is 62-year-old -[place] female patient who resides in the [facility]. She has a known past medical history of coronary artery disease with prior stents,, previous CVA/TIA, hypertension, hyperlipidemia, PA, seizures, hypothyroidism, bipolar disorder, depression, schizophrenia, current every day smoker. She presented to emergency by ambulance on 05/09/2018 after an episode of being unresponsive. It is unknown how long she was unresponsive. She denies complaints, no chest pain, no difficulty breathing, no lightheadedness or dizziness. Urinalysis revealed evidence of a urinary tract infection. Chest x-ray revealed cardiomegaly with mild vascular congestion. CT angios of the chest was negative for any evidence of pulmonary embolism, but it did show a right upper lobe lung mass measuring approximately 2 cm in diameter with extension to the pleural surface with lobulated margins. Additionally, a soft tissue mass at the level of the inferior pulmonary vein on the right measuring approximately 2 cm. There were no greater than 1 cm hilar or mediastinal lymph nodes, no pericardial effusion. The 2 right lung pulmonary masses or suspicious for metastatic disease. There is no prior history of cancer. Last mammogram was normal about a year ago per patient. She did have a recent hospitalization with a urinary tract infection with sepsis. During her recent admission per the medical chart she had a syncopal episode with seizure activity and she was evaluated by neurology. EEG was within normal limits. Brain CT did not show any acute intracranial hemorrhage. Hemoglobin9.4, creatinine was 1.44. Patient was given IV fluid afebrile, has any pulmonary symptoms, no cough, no shortness of breath, no hemoptysis. Hematology Oncology has been consulted to assess patient further regarding new pulmonary nodules. Review of Systems A 14 point review of systems assessed and completed and all neg except HPI Past Medical History Past Medical History: Coronary Artery Disease (CAD), CVA/TIA, Diabetes Mellitus , Hyperlipidemia, Hypertension, Myocardial Infarction (PA), Seizure Disorder, Thyroid Disorder Additional Past Medical History / Comment(s): pt stated she had a pne vaccine but not sure of date,policy writer unable to verify date at time of this admit. hx includes:heart stent x1,tia,uti, pt stated in past took meds for thyroid",egd feb 2018- superficial ulcers; borderline dm, does not have sugars checked Last Myocardial Infarction Date:: N/A History of Any Multi-Drug Resistant Organisms: None Reported Past Surgical History: Heart Catheterization With Stent, Tubal Ligation Additional Past Surgical History / Comment(s): feb 2018 egd Past Anesthesia/Blood Transfusion Reactions: No Reported Reaction Date of Last Stent Placement:: unk Past Psychological History: Bipolar, Depression, Schizophrenia Additional Psychological History / Comment(s): pt stated she lives at [facility] in [facility],uses walker when up Smoking Status: Current every day smoker Past Alcohol Use History: None Reported Additional Past Alcohol Use History / Comment(s): started smoking at age 18, smokes 7 cig per day which is down from 1/2 ppd Past Drug Use History: None Reported - Past Family History Mother Additional Family Medical History / Comment(s): in sleep Father Family Medical History: Myocardial Infarction (PA) Medications and Allergies Home Medications Medication Instructions Recorded Confirmed Type Cholecalciferol (Vitamin D3) 2,000 unit PO DAILY 02/14/17 05/09/18 History [Vitamin D3] Clopidogrel Bisulfate [Plavix] 75 mg PO DAILY 02/14/17 05/09/18 History Isosorbide Mononitrate ER [Imdur] 30 mg PO DAILY 02/14/17 05/09/18 History Potassium Chloride [Klor-Con 20] 20 meq PO DAILY 02/14/17 05/09/18 History QUEtiapine [SEROquel] 100 mg PO HS 02/14/17 05/09/18 History Solifenacin Succinate [Vesicare] 10 mg PO DAILY 02/14/17 05/09/18 History carBAMazepine [TEGretol] 300 mg PO TID 02/14/17 05/09/18 History risperiDONE [RisperDAL] 2 mg PO BID 02/14/17 05/09/18 History Atorvastatin [Lipitor] 40 mg PO HS 03/05/18 05/09/18 History Loratadine [Claritin] 10 mg PO DAILY 03/05/18 05/09/18 History Metoprolol Tartrate [Lopressor] 25 mg PO BID 03/05/18 05/09/18 History Sertraline [Zoloft] 25 mg PO HS 03/05/18 05/09/18 History Sertraline [Zoloft] 100 mg PO DAILY 03/05/18 05/09/18 History metFORMIN HCL ER [Glucophage Xr] 500 mg PO HS 03/05/18 05/09/18 History Furosemide [Lasix] 40 mg PO DAILY tab 04/22/18 05/09/18 Rx Acetaminophen Tab [Tylenol] 650 mg PO TID PRN 05/09/18 05/09/18 History Cyanocobalamin (Vitamin B-12) 1,000 mcg PO DAILY 05/09/18 05/09/18 History [Vitamin B-12] Diphenoxylate HCl/Atropine 1 tab PO TID PRN 05/09/18 05/09/18 History [Lomotil 2.5-0.025 mg Tablet] LORazepam [Ativan] 1 - 2 mg PO TID PRN 05/09/18 05/09/18 History Lisinopril [Zestril] 10 mg PO DAILY 05/09/18 05/09/18 History Sennosides/Docusate Sodium 1 tab PO BID PRN 05/09/18 05/09/18 History [Senna-S Laxative Tablet] diphenhydrAMINE [Benadryl] 25 mg PO TID PRN 05/09/18 05/09/18 History Allergies Allergy/AdvReac Type Severity Reaction Status Date / Time cranberry AdvReac Unknown Verified 05/09/18 12:36 grapefruit AdvReac Itching Verified 05/09/18 12:36 Penicillins AdvReac Itching Verified 05/09/18 12:36 Physical Exam Vitals: Vital Signs Temp Pulse Resp BP BP Pulse Ox 05/11/18 11:29 97.9 F 81 16 139/72 97 05/11/18 09:13 86 122/57 05/11/18 04:53 97.5 F L 80 17 95/53 97 05/11/18 00:00 16 05/10/18 21:24 98.1 F 92 16 98/53 95 05/10/18 20:00 83 16 Intake and Output 05/11/18 05/11/18 05/11/18 06:59 14:59 22:59 Intake Total 690 600 Balance 690 600 Intake: Intake, IV Titration 450 Amount Sodium Chloride 0.9% 1, 450 000 ml @ 75 mls/hr IV . [id number] Rx#:[id number] Oral 240 600 Other: Voiding Method Bedside Commode Diaper Incontinent # Voids 1 2 2 # Bowel Movements 3 3 Gen: Alert and oriented x3, NAD, Morbid Obesity Head: NC, NT, No cervical lymphadenopathy Neck: Supple, Trachea Midline Lungs: CTA Bila, No increased effort Abdomen: Morbid Obese, S/ND/Non Tender Heart RRR, S1s2 Extremities: Weakness, Positive Pulses, No edema or rashes Neurological: No focal defects noted Psych: Calm and corporative Results CBC & Chem 7: 05/09/18 12:00 05/11/18 07:20 Labs: Abnormal Lab Results - Last 24 Hours (Table) 05/11/18 Range/Units 07:20 Chloride 113 H (98-107) mmol/L BUN 23 H (7-17) mg/dL Creatinine 1.20 H (0.52-1.04) mg/dL Glucose 103 H (74-99) mg/dL Microbiology - Last 24 Hours (Table) 05/10/18 13:01 Blood Culture - Preliminary Blood No Growth after 24 hours 05/10/18 12:44 Blood Culture - Preliminary Blood No Growth after 24 hours 05/09/18 16:50 Urine Culture - Preliminary Urine,Voided Gram Neg Bacilli Chest x-ray: report reviewed CT scan - abdomen: report reviewed CT scan - chest: report reviewed CT scan - pelvis: report reviewed Assessment and Plan Plan: Assessment and Recommendations: 1. Pulmonary Nodules Right Lung: - 1.4x1, 2x1.2 - difficult to distinguish at this time, await pulmonary input for plan to obtain tissue biopsy 2. Normocytic Anemia: No overt bleeding - Iron, ferritin, B12, Retics, LDH in progress - Recheck CBC today 3. Acute Renal Insufficiency: per medicine. 4. Syncopal?Near Syncopal Event: - With incidental finding of pulmonary nodules and unclear etiology MRI of the brain for further investigation is resonable. Physician Attestation: I have completed the full history and physical of this patient and agree with above dictation by Cecelia Wahl NP dictated as a scribe
[2018-05-11 18:53] LABS: Anisocytosis Slight; Basophils % (A) 0 %; Eosinophils # (A) 0.2 k/uL (0-0.7); Eosinophils % (A) 3 %; HCT 28.6 % (34.0-46.0); HGB 8.8 gm/dL (11.4-16.0); Hypochromasia Marked; Lymphocytes # (A) 1.6 k/uL (1.0-4.8); Lymphocytes % (A) 24 %; MCH 25.9 pg (25.0-35.0); MCHC 30.7 g/dL (31.0-37.0); MCV 84.3 fL (80.0-100.0); Mean Platelet Volume 10.1; Microcytosis Slight; Monocytes # (A) 0.4 k/uL (0-1.0); Monocytes % (A) 6 %; Neutrophils # (A) 4.2 k/uL (1.3-7.7); Neutrophils % (A) 64 %; Platelet Count 168 k/uL (150-450); RBC 3.39 m/uL (3.80-5.40); RDW 19.6 % (11.5-15.5); Reticulocyte % 2.4 % (0.5-2.0); WBC 6.6 k/uL (3.8-10.6)
[2018-05-11] MEDS: SERTRALINE 25 MG TAB PO SCH (20:18)
[2018-05-11] MEDS: QUEtiapine 100 MG TAB PO SCH (20:18)
[2018-05-11] MEDS: ATORVASTATIN 40 MG TAB PO SCH (20:22)
[2018-05-11 20:59] LABS: Hemoglobin A1C 6.3 % (4.0-6.0)
[2018-05-12] MEDS: NITROFURANTOIN MONOHYD/M-CRYST 100 MG CAP PO SCH ×3 (01:19→20:05)
[2018-05-12] MEDS: SODIUM CHLORIDE 0.9% 1,000 ML IV SCH ×2 (01:25→16:47)
[2018-05-12 04:03] LABS: Iron Saturation 16.03 (12.00-45.00)
[2018-05-12 04:13] LABS: Folate, Serum 2.9 ng/mL
--- NOTE | 2018-05-12 05:07 | PN ---
PROGRESS NOTE DATE OF SERVICE: 05/11/2018 PRESENTING COMPLAINT: Tired. INTERVAL HISTORY: This patient presented with syncope, felt to be vasovagal. The patient is a smoker, found to have [address] scan of the abdomen and pelvis was unremarkable. MRI of the brain has been ordered. The patient's daughter at the bedside. The patient does feel tired, lethargic, but sitting at the edge of the bed. REVIEW OF SYSTEMS: Done for constitutional, cardiovascular, GI, pulmonary; relevant findings as above. CURRENT MEDICATIONS: Current medications are reviewed. PHYSICAL EXAMINATION: On examination, temperature 97.9, pulse 81, respirations 16, blood pressure 139/72, pulse ox 97% on room air. GENERAL APPEARANCE: Sitting at the edge of the bed, tired appearing, lethargic. EYES: Pupils equal. Conjunctivae normal. NECK: JVD not raised. Mass not palpable. RESPIRATORY: Effort normal. LUNGS: Decreased breath sounds. CARDIOVASCULAR: First and second sounds normal. No edema. ABDOMEN: Soft, nontender. Liver and spleen not palpable. PSYCHIATRY: The patient is awake, though lethargic. INVESTIGATIONS: White count 6.6, hemoglobin 8.8, BUN 23, creatinine 1.20. Urine cultures growing Citrobacter freundii. ASSESSMENT: 1. Syncope likely secondary to vasovagal. 2. Right-sided two lung masses suspicious for malignancy in a smoker for possible bronchoscopy as an outpatient. 3. Chronic nicotine dependence, patient active cigarette smoker. 4. Essential hypertension. 5. Hyperlipidemia. 6. Coronary artery disease with stent. 7. Diabetes mellitus type 2 on oral hypoglycemic. 8. Bipolar disorder. 9. Chronic gait dysfunction, uses a walker at the baseline. 10.Rather lethargic presentation, will get patient's antipsychotics assessed by Psychiatry. PLAN: Patient is pending MRI of the brain. We will get a psychiatry consult to evaluate to see if some of the medications can be cut back. Bronchoscopy as an outpatient. Care was discussed with the daughter. Will follow. MMODL / IJN: [id number] /
--- NOTE | 2018-05-12 09:11 | MR ---
EXAMINATION TYPE: MR brain wo con DATE OF EXAM: 05/12/2018 8:06 AM COMPARISON: NONE HISTORY: Concern for malignant underlying process FINDINGS: The ventricles, basal cisterns and sulci overlying the cerebral convexities are mild to moderately en larged. There is evidence of moderate confluent periventricular white matter ischemic demyelination. Remote deep white matter insults are also noted. No acute edema is seen on diffusion weighted imaging. There is no evidence for midline shift or mass effect. Acute intracranial hemorrhage or extra-axial collection is not evident. The paranasal sinuses and mastoid air cells are well-aerated. IMPRESSION: Age-related atrophic and chronic small vessel ischemic change. No acute intracranial process at this time.
[2018-05-12] MEDS: metFORMIN 500 MG TAB PO SCH ×2 (09:24→20:05)
[2018-05-12] MEDS: CHOLECALCIFEROL 1,000 UNIT TAB PO SCH (09:25)
[2018-05-12] MEDS: ISOSORBIDE MONONITRATE ER 30 MG TAB.ER.24H PO SCH (09:25)
[2018-05-12] MEDS: LISINOPRIL 10 MG TAB PO SCH (09:26)
[2018-05-12] MEDS: METOPROLOL TARTRATE 25 MG TAB PO SCH ×2 (09:26→20:05)
[2018-05-12] MEDS: CLOPIDOGREL 75 MG TAB PO SCH ×2 (09:26→09:33)
[2018-05-12] MEDS: CYANOCOBALAMIN 500 MCG TAB PO SCH (09:26)
[2018-05-12] MEDS: risperiDONE 2 MG TAB PO SCH ×2 (09:27→20:06)
[2018-05-12 09:28] LABS: Anisocytosis Slight; Basophils % (A) 0 %; Eosinophils # (A) 0.2 k/uL (0-0.7); Eosinophils % (A) 4 %; HCT 29.3 % (34.0-46.0); Hypochromasia Marked; Lymphocytes # (A) 1.4 k/uL (1.0-4.8); Lymphocytes % (A) 25 %; MCHC 30.5 g/dL (31.0-37.0); Microcytosis Slight; Monocytes # (A) 0.4 k/uL (0-1.0); Monocytes % (A) 7 %; Neutrophils # (A) 3.5 k/uL (1.3-7.7); Neutrophils % (A) 62 %; Platelet Count 153 k/uL (150-450); RBC 3.45 m/uL (3.80-5.40); RDW 19.6 % (11.5-15.5); WBC 5.6 k/uL (3.8-10.6)
[2018-05-12] MEDS: SERTRALINE 100 MG TAB PO SCH (09:28)
[2018-05-12] MEDS: carBAMazepine 200 MG TAB PO SCH ×2 (09:29→16:48)
[2018-05-12] MEDS: TROSPIUM CHLORIDE 20 MG TABLET PO SCH ×2 (09:29→20:06)
[2018-05-12 09:43] LABS: Albumin 3.3 g/dL (3.5-5.0); Calcium 9.1 mg/dL (8.4-10.2); Potassium 4.4 mmol/L (3.5-5.1); Total Bilirubin 0.2 mg/dL (0.2-1.3)
[2018-05-12 12:28] VITALS: RESP 18; TEMP 98
--- NOTE | 2018-05-12 12:47 | P.PN ---
Subjective Progress Note Date: 05/12/18 Principal diagnosis: Right upper lobe lung mass and a right lung mass at the level of the inferior pulmonary vein, rule out metastatic disease 62-year-old female patient, was hospitalized because of imbalance, disequilibrium and falls. The patient was having unsteady gait. MRI of the brain is in progress at dose further further investigation for an underlying unsteadiness. Note that the patient also has multiple medical problems including coronary artery disease, previous coronary stenting, previous CVA, hypertension, hyperlipidemia, seizure disorder, hypothyroidism, bipolar disorder /schizophrenia/depression. She is a chronic smoker. She lives in a retirement. The CAT scan of the chest showed 2 pulmonary nodular the dominant one was in the right upper lobe and this raises concern for malignancy. The CAT scan of the abdomen and pelvis was also done that showed that the right lung lesion was measuring 1.4 x 1 cm versus 2 x 1.2 cm. The the cause for the final size of the lesion is not known. Could be technical. In any rate, we have made recommendations for outpatient PET scan for this patient regarding further workup for any metastatic malignancy/disease. She has no cough. No sputum production. No hemoptysis. No previous exposure to TB. No previous bouts of pneumonias. On 05/12/2018 patient seen in follow-up on medical surgical floor. She is awake and alert, denies any distress. Vital signs are stable, rheumatic pulse ox is 100%, afebrile, no fever or chills, brain MRI acute intracranial process, it showed age-related atrophic and chronic small vessel ischemic changes. Medical oncology consultation was noted. Urine culture was positive for Citrobacter Freundii, patient was initially treated with IV Rocephin, which the organism was susceptible 2, and has now been transitioned to oral nitrofurantoin. No further episodes of syncope, no seizure activity. Lung sounds are diminished, no wheezing no rhonchi Objective - Vital Signs Vital signs: Vital Signs Temp 98 F 05/12/18 12:27 Pulse 80 05/12/18 12:27 Resp 18 05/12/18 12:27 BP 120/55 05/12/18 12:27 Pulse Ox 100 05/12/18 12:27 Intake & Output 05/11/18 05/12/18 05/12/18 18:59 06:59 18:59 Intake Total 600 550 Balance 600 550 Intake: IV 10 0.9 10 Intake, IV Titration 300 Amount Sodium Chloride 0.9% 1, 300 000 ml @ 75 mls/hr IV . [id number] [facility] Rx#:[id number] Oral 600 240 Other: Voiding Method Bedside Commode Bedside Commode Diaper Diaper Incontinent Incontinent # Voids 2 1 # Bowel Movements 3 - Exam GENERAL EXAM: Alert, pleasant, 62-year-old -Hungarian female comfortable in no apparent distress. HEAD: Normocephalic/atraumatic. EYES: Normal reaction of pupils, equal size. Conjunctiva pink, sclera white. NOSE: Clear with pink turbinates. THROAT: No erythema or exudates. NECK: No masses, no JVD, no thyroid enlargement, no adenopathy. CHEST: No chest wall deformity. Symmetrical expansion. LUNGS: Equal air entry with no crackles, wheeze, rhonchi or dullness. CVS: Regular rate and rhythm, normal S1 and S2, no gallops, no murmurs, no rubs ABDOMEN: Soft, nontender. No hepatosplenomegaly, normal bowel sounds, no guarding or rigidity. EXTREMITIES: No clubbing, no edema, no cyanosis, 2+ pulses and upper and lower extremities. MUSCULOSKELETAL: Muscle strength and tone normal. SPINE: No scoliosis or deformity SKIN: No rashes CENTRAL NERVOUS SYSTEM: Alert and oriented -3. No focal deficits, tone is normal in all 4 extremities. PSYCHIATRIC: Alert and oriented -3. Appropriate affect. Intact judgment and insight. - Labs CBC & Chem 7: 05/12/18 09:01 05/12/18 09:01 Labs: Abnormal Lab Results - Last 24 Hours (Table) 05/11/18 05/11/18 05/11/18 Range/Units 07:20 18:33 18:33 RBC 3.39 L (3.80-5.40) m/uL Hgb 8.8 L (11.4-16.0) gm/dL Hct 28.6 L (34.0-46.0) % MCHC 30.7 L (31.0-37.0) g/dL RDW 19.6 H (11.5-15.5) % Retic Count 2.4 H (0.5-2.0) % Chloride (98-107) mmol/L BUN (7-17) mg/dL Glucose (74-99) mg/dL Hemoglobin A1c 6.3 H (4.0-6.0) % Iron 46 L (50-170) ug/dL Total Protein (6.3-8.2) g/dL Albumin (3.5-5.0) g/dL 05/12/18 05/12/18 Range/Units 09:01 09:01 RBC 3.45 L (3.80-5.40) m/uL Hgb 9.0 L (11.4-16.0) gm/dL Hct 29.3 L (34.0-46.0) % MCHC 30.5 L (31.0-37.0) g/dL RDW 19.6 H (11.5-15.5) % Retic Count (0.5-2.0) % Chloride 113 H (98-107) mmol/L BUN 20 H (7-17) mg/dL Glucose 132 H (74-99) mg/dL Hemoglobin A1c (4.0-6.0) % Iron (50-170) ug/dL Total Protein 6.0 L (6.3-8.2) g/dL Albumin 3.3 L (3.5-5.0) g/dL Microbiology - Last 24 Hours (Table) 05/09/18 16:50 Urine Culture - Final Urine,Voided Citrobacter freundii 05/10/18 13:01 Blood Culture - Preliminary Blood No Growth after 24 hours 05/10/18 12:44 Blood Culture - Preliminary Blood No Growth after 24 hours Assessment and Plan Plan: Assessment: #1. Right upper lobe lung mass measuring 2 cm in diameter with extension to the pleural surface, and 2 cm mass at the level of the inferior pulmonary vein on the right, rule out metastatic disease #2. Syncopal episode at the retirement, and the duration was unknown, MRI of the brain showed no acute findings #3. Acute urinary tract infection with sepsis #4. Recent hospitalization for acute urinary tract infection with sepsis, presyncopal episodes, and seizure activity. Urine cultures were positive for E. coli #5. Acute kidney injury #6. Elevated d-dimer, she angios chest negative for any evidence of pulmonary embolism #7. History of coronary artery disease with previous stenting #8. History of CVA/TIA #9. Seizure disorder #10. Hypertension, hyperlipidemia #11. Myocardial infarction #12. History of bipolar, depression, schizophrenia #13. Current every day smoker Plan: From pulmonary perspective patient is stable, denies any shortness of breath, she is on room air, no cough, no congestion. Plavix can be resumed, no plans for bronchoscopy while patient is in the hospital, she will need outpatient PET scan, follow-up with Dr. Saunders in the office in one week. I performed a history & physical examination of the patient and discussed their management with my nurse practitioner, Katie Whelan. I reviewed the nurse practitioner's note and agree with the documented findings and plan of care. Lung sounds are diminished at the bases. The findings and the impression was discussed with the patient. I attest to the documentation by the nurse practitioner. Time with Patient: Less than 30
--- NOTE | 2018-05-12 12:54 | P.PN ---
Subjective Progress Note Date: 05/12/18 Principal diagnosis: Syncopal Episode Feeling better today, she denies any acute events Objective - Vital Signs Vital signs: Vital Signs Temp 98 F 05/12/18 12:27 Pulse 80 05/12/18 12:27 Resp 18 05/12/18 12:27 BP 120/55 05/12/18 12:27 Pulse Ox 100 05/12/18 12:27 Intake & Output 05/11/18 05/12/18 05/12/18 18:59 06:59 18:59 Intake Total 600 550 Balance 600 550 Intake: IV 10 0.9 10 Intake, IV Titration 300 Amount Sodium Chloride 0.9% 1, 300 000 ml @ 75 mls/hr IV . [id number] Rx#:[id number] Oral 600 240 Other: Voiding Method Bedside Commode Bedside Commode Diaper Diaper Incontinent Incontinent # Voids 2 1 # Bowel Movements 3 - Exam Gen: Alert and oriented x3, NAD, Morbid Obesity Head: NC, NT, No cervical lymphadenopathy Neck: Supple, Trachea Midline Lungs: CTA Bila, No increased effort Abdomen: Morbid Obese, S/ND/Non Tender Heart RRR, S1s2 Extremities: Weakness, Positive Pulses, No edema or rashes Neurological: No focal defects noted Psych: Calm and corporative - Labs CBC & Chem 7: 05/12/18 09:01 05/12/18 09:01 Labs: Abnormal Lab Results - Last 24 Hours (Table) 05/11/18 05/11/18 05/11/18 Range/Units 07:20 18:33 18:33 RBC 3.39 L (3.80-5.40) m/uL Hgb 8.8 L (11.4-16.0) gm/dL Hct 28.6 L (34.0-46.0) % MCHC 30.7 L (31.0-37.0) g/dL RDW 19.6 H (11.5-15.5) % Retic Count 2.4 H (0.5-2.0) % Chloride (98-107) mmol/L BUN (7-17) mg/dL Glucose (74-99) mg/dL Hemoglobin A1c 6.3 H (4.0-6.0) % Iron 46 L (50-170) ug/dL Total Protein (6.3-8.2) g/dL Albumin (3.5-5.0) g/dL 05/12/18 05/12/18 Range/Units 09:01 09:01 RBC 3.45 L (3.80-5.40) m/uL Hgb 9.0 L (11.4-16.0) gm/dL Hct 29.3 L (34.0-46.0) % MCHC 30.5 L (31.0-37.0) g/dL RDW 19.6 H (11.5-15.5) % Retic Count (0.5-2.0) % Chloride 113 H (98-107) mmol/L BUN 20 H (7-17) mg/dL Glucose 132 H (74-99) mg/dL Hemoglobin A1c (4.0-6.0) % Iron (50-170) ug/dL Total Protein 6.0 L (6.3-8.2) g/dL Albumin 3.3 L (3.5-5.0) g/dL Microbiology - Last 24 Hours (Table) 05/09/18 16:50 Urine Culture - Final Urine,Voided Citrobacter freundii 05/10/18 13:01 Blood Culture - Preliminary Blood No Growth after 24 hours 05/10/18 12:44 Blood Culture - Preliminary Blood No Growth after 24 hours Assessment and Plan Plan: Assessment and Recommendations: 1. Pulmonary Nodules Right Lung: - 1.4x1, 2x1.2 - difficult to distinguish at this time, await pulmonary input for plan to obtain tissue biopsy - No plan for Bronch per pulmonary, Will need PET as outpatient although may require tissue diagnosis first. In this case may attempt needle biopsy of pulmonary nodules. 2. Normocytic Anemia: No overt bleeding - Iron, ferritin, B12, Retics, LDH in progress - Recheck CBC today 3. Acute Renal Insufficiency: per medicine. 4. Syncopal?Near Syncopal Event: - With incidental finding of pulmonary nodules and unclear etiology an MRI of the brain was performed for further investigation - MRI was reviewed and negative for malignancy After tissue biopsy is completed, if malignancy is shown she may follow-up with dr. Soliman in office. I will discuss with Dr. Soliman obtaining biopsy through IR while admitted versus outpatient, she is on plavix and was held yesterday until decision of biopsy was made.
--- NOTE | 2018-05-12 14:31 | P.CN ---
Psychiatric Consult - . Consult date: 05/12/18 Consult:: Please assess psychiatric medications as this patient is a chronically mentally ill and lives in a jail 05/12/18 13:36 Assessment and Plan Assessment: This is 62-year-old -[place] female patient who resides in the jail. She has a known past medical history of coronary artery disease with prior stents,, previous CVA/TIA, hypertension, hyperlipidemia, SD, seizures, hypothyroidism, bipolar disorder, depression, schizophrenia, current every day smoker. She presented to emergency by ambulance on 05/09/2018 after an episode of being unresponsive. It is unknown how long she was unresponsive. She denies complaints, no chest pain, no difficulty breathing, no lightheadedness or dizziness. Urinalysis revealed evidence of a urinary tract infection. Chest x-ray revealed cardiomegaly with mild vascular congestion. CT angios of the chest was negative for any evidence of pulmonary embolism, but it did show a right upper lobe lung mass measuring approximately 2 cm in diameter with extension to the pleural surface with lobulated margins. Additionally, a soft tissue mass at the level of the inferior pulmonary vein on the right measuring approximately 2 cm. There were no greater than 1 cm hilar or mediastinal lymph nodes, no pericardial effusion. The 2 right lung pulmonary masses or suspicious for metastatic disease. There is no prior history of cancer. Last mammogram was normal about a year ago per patient. She did have a recent hospitalization with a urinary tract infection with sepsis. During her recent admission per the medical chart she had a syncopal episode with seizure activity and she was evaluated by neurology. EEG was within normal limits. Brain CT did not show any acute intracranial hemorrhage. Hemoglobin9.4, creatinine was 1.44. Patient was given IV fluid afebrile, has any pulmonary symptoms, no cough, no shortness of breath, no hemoptysis. Hematology Oncology has been consulted to assess patient further regarding new pulmonary nodules. 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 hx includes:heart stent x1,tia,uti, pt stated in past took meds for thyroid",egd feb 2018- superficial ulcers; borderline dm, does not have sugars checked Last Myocardial Infarction Date:: N/A History of Any Multi-Drug Resistant Organisms: None Reported Past Surgical History: Heart Catheterization With Stent, Tubal Ligation Additional Past Surgical History / Comment(s): feb 2018 egd Past Anesthesia/Blood Transfusion Reactions: No Reported Reaction Date of Last Stent Placement:: unk Past Psychological History: Bipolar, Depression, Schizophrenia Additional Psychological History / Comment(s): pt stated she lives at [facility],uses walker when up Smoking Status: Current every day smoker Past Alcohol Use History: None Reported Additional Past Alcohol Use History / Comment(s): started smoking at age 18, smokes 7 cig per day which is down from 1/2 ppd Past Drug Use History: None Reported - Past Family History Mother Additional Family Medical History / Comment(s): in sleep Father Family Medical History: Myocardial Infarction (SD) Medications and Allergies Home Medications Medication Instructions Recorded Confirmed Type Cholecalciferol (Vitamin D3) 2,000 unit PO DAILY 02/14/17 05/09/18 History [Vitamin D3] Clopidogrel Bisulfate [Plavix] 75 mg PO DAILY 02/14/17 05/09/18 History Isosorbide Mononitrate ER [Imdur] 30 mg PO DAILY 02/14/17 05/09/18 History Potassium Chloride [Klor-Con 20] 20 meq PO DAILY 02/14/17 05/09/18 History QUEtiapine [SEROquel] 100 mg PO HS 02/14/17 05/09/18 History Solifenacin Succinate [Vesicare] 10 mg PO DAILY 02/14/17 05/09/18 History carBAMazepine [TEGretol] 300 mg PO TID 02/14/17 05/09/18 History risperiDONE [RisperDAL] 2 mg PO BID 02/14/17 05/09/18 History Atorvastatin [Lipitor] 40 mg PO HS 03/05/18 05/09/18 History Loratadine [Claritin] 10 mg PO DAILY 03/05/18 05/09/18 History Metoprolol Tartrate [Lopressor] 25 mg PO BID 03/05/18 05/09/18 History Sertraline [Zoloft] 25 mg PO HS 03/05/18 05/09/18 History Sertraline [Zoloft] 100 mg PO DAILY 03/05/18 05/09/18 History metFORMIN HCL ER [Glucophage Xr] 500 mg PO HS 03/05/18 05/09/18 History Furosemide [Lasix] 40 mg PO DAILY tab 04/22/18 05/09/18 Rx Acetaminophen Tab [Tylenol] 650 mg PO TID PRN 05/09/18 05/09/18 History Cyanocobalamin (Vitamin B-12) 1,000 mcg PO DAILY 05/09/18 05/09/18 History [Vitamin B-12] Diphenoxylate HCl/Atropine 1 tab PO TID PRN 05/09/18 05/09/18 History [Lomotil 2.5-0.025 mg Tablet] LORazepam [Ativan] 1 - 2 mg PO TID PRN 05/09/18 05/09/18 History Lisinopril [Zestril] 10 mg PO DAILY 05/09/18 05/09/18 History Sennosides/Docusate Sodium 1 tab PO BID PRN 05/09/18 05/09/18 History [Senna-S Laxative Tablet] diphenhydrAMINE [Benadryl] 25 mg PO TID PRN 05/09/18 05/09/18 History Allergies Allergy/AdvReac Type Severity Reaction Status Date / Time cranberry AdvReac Unknown Verified 05/09/18 12:36 grapefruit AdvReac Itching Verified 05/09/18 12:36 Penicillins AdvReac Itching Verified 05/09/18 12:36 Mental Status Examination - General Appearance: [ casual, appears older than stated age Speech/Language: [spontaneous Attitude/Behavior: [cooperative Mood: [euthymic Affect: [full range Orientation: [time, person, place situation] Thought Content: [wnl, Risk Factors: [she is not suicidal (ideations, plan), and/or Homicidal ( ideations, plan), other] Perception: [wnl Thought Processes: [goal-oriented, Concentration/Attention Span: [wnl,] [Per observation and interview with the patient] Recent Memory: [wnl, Remote Memory: [wnl, [past events, as related history] Intelligence: [average] [based on history, based on vocabulary, syntax, grammar , and content] Judgement: [good] [per patient's behavior/history of present illness] Insight: [good] [understanding severity of illness/history of present illness] Psychiatric impression:stable on current medication-schizoaffective bipolar type Psychiatric recommendation:stable on current medications and able to return to jail Thank you for the consult Bill Guzman D.O. PhD (1) Schizo-affective schizophrenia, chronic condition Current Visit: Yes Status: Chronic Priority: Low Code(s): F25.8 - OTHER SCHIZOAFFECTIVE DISORDERS SNOMED Code(s): 413712507 Plan: Psychiatric stable and if medically stable can go back to jail Time with Patient: Less than 30
--- NOTE | 2018-05-12 14:37 | CDI ---
Documentation Clarification Form Date: 05/12/2018 2:07:33 PM From: Tatiana Schwartz RN, CCDS Admit Date: 05/11/2018 4:19:00 PM Patient Name: Patti Rodríguez Visit Number: [id number] Discharge Date: ATTENTION: The Clinical Documentation Specialists (CDI) and [facility] Coding Staff appreciate your assistance in clarifying documentation. Please respond to the clarification below the line at the bottom and electronically sign. The CDI & [facility] Coding staff will review the response and follow-up if needed. Please note: Queries are made part of the Legal Health Record. If you have any questions, please contact the author of this message via ITS. Dr. Jose Fraser The patient presented with a unresponsive episode. History/Risk Factors: Coronary Artery Disease, Hypertension, Current every day smoker Clinical Indicators: Present with a unresponsive episode. She was alert and oriented x3. CAT scan shows no evidence of PE, but evidence of 2 masses noted in the left upper lobe. Urine has evidence of a UTI, with positive Nitrite, Large Leukocyte Esterase. Urine Culture: Citrobacter freundli Lab findings: WBC 6.9 Vital Signs on admission: 109/65 90 16 98 % RA Treatment: IV Fluids Rocephin IV x1 Macrobid PO In your professional opinion, can you please further clarify the criteria you are using for sepsis, or is this a history of sepsis ? Sepsis ruled out Other, please specify Unable to determine Sepsis Criteria (2 or more of the following may indicate SIRS with infection source): -Temperature < 96.8F (36C) or > 101.0F (38.3C) -Heart Rate > 90 bpm -Respiratory Rate > 20 breaths/min or PaCO2 < 32 mmHg -White Blood Cell Count > 12,000 or < 4,000 cells/mm3 or > 10% bands -Lactate >2.0 mmol/L (>4.0 is equivalent to septic shock) (Last Revision: July 2017) Still feel this was urinary tract infection with urine cultures previously positive for Escheria coli from 04/16/2018 and Citrobacter Freundii from 2018, with evidence of organ dysfunction like altered mental status, and acute kidney injury without meeting the SIRS criteria MTDD
[2018-05-12 20:03] VITALS: BP 126/58; PULSE 88
[2018-05-12] MEDS: ATORVASTATIN 40 MG TAB PO SCH (20:05)
[2018-05-12] MEDS: SERTRALINE 25 MG TAB PO SCH (20:06)
[2018-05-12] MEDS: QUEtiapine 100 MG TAB PO SCH (20:06)
--- NOTE | 2018-05-13 06:27 | DS ---
DISCHARGE SUMMARY DATE OF ADMISSION: 05/09/2018 DATE OF DISCHARGE: 05/12/2018 FINAL DIAGNOSES: 1. Syncope likely secondary to vasovagal. 2. Right-sided two lung masses suspicious for malignancy in a smoker. The patient is declining bronchoscopy. 3. Chronic nicotine dependence. Patient is an active cigarette smoker. 4. Essential hypertension. 5. Hyperlipidemia. 6. Coronary artery disease with stent. 7. Diabetes mellitus type 2 on oral hypoglycemic. 8. Bipolar disorder. 9. Chronic gait dysfunction uses a walker at baseline. 10.Acute urinary tract infection probably from cystitis from Citrobacter freundii. CONSULTATIONS: Dr. Guzman from Psychiatry; Dr. Fraser from Pulmonary Critical Care; Dr. Soliman from Oncology. HOSPITAL COURSE: This is a patient who presented after passing out at the dining table, felt to be vasovagal. Patient did have a chest CTA that revealed what appears to be two upper lung masses about 2 cm in nature. MRI of the brain showed some chronic changes. No evidence of any metastasis. Also had a CT scan of the abdomen and pelvis did not show any primary cause in the abdomen. I spoke to the patient today at this point she does not want any bronchoscopy or any further testing simply wants to go home. I did tell her to follow up and keep her appointments both with Pulmonary and Oncology or at least Pulmonary, will need a tissue diagnosis first. PHYSICAL EXAMINATION: On examination, temperature 98, pulse 80, respiration 18, blood pressure 120/55, pulse ox 100% on room air. LUNGS: Decreased breath sounds. PSYCH: AO x3. DISCHARGE MEDICATIONS: 1. Plavix 75 mg a day. 2. Imdur ER 30 mg a day. 3. Seroquel 100 mg q.h.s. 4. VESIcare 10 mg p.o. daily. 5. Tegretol 300 mg p.o. t.i.d. 6. Risperdal 2 mg p.o. b.i.d. 7. Lipitor 40 mg q.h.s. 8. Lopressor 25 mg b.i.d. 9. Zoloft 25 mg q.h.s., 100 mg in the morning. 10.Glucophage XR 500 mg p.o. q.h.s. 11.Tylenol 650 mg p.o. t.i.d. p.r.n. 12.Vitamin B12, 1000 mcg p.o. daily. 13.Lomotil 1 tablet t.i.d. p.r.n. 14.Ativan 1 to 2 mg p.o. t.i.d. p.r.n. 15.Zestril 10 mg p.o. daily. 16.Senna S one tablet p.o. b.i.d. 17.Lasix 40 mg p.o. Friday, Friday, Friday. 18.Macrobid 100 mg p.o. b.i.d., 6 capsules. 19.Potassium 20 mEq p.o. Friday, Friday and Friday. DISPOSITION: retirement. Follow up with Dr. Duron, Visiting Physician, on 05/15/2018. Follow up with Dr. Saunders on 05/18/2018. MMLEONORL / IJN: [id number] /
[2018-05-13] MEDS ORDERED: POTASSIUM CHLORIDE ER 20 MEQ TAB.ER PO SCH (09:00)
[2018-05-13] MEDS ORDERED: FUROSEMIDE 40 MG TAB PO SCH (09:45)
--- NOTE | 2018-05-14 08:25 | CDI ---
Documentation Clarification Form Date: 05/14/18 From: Leta Castellano Phone: If you have a question regarding this query, please contact Renetta Camacho [phone] between 8am and 5pm. Admit Date: 05/11/2018 4:19:00 PM Patient Name: Patti Rodríguez Visit Number: [id number] Discharge Date: 05/12/2018 8:16:00 PM ATTENTION: The Clinical Documentation Specialists (CDI) and [facility] Coding Staff appreciate your assistance in clarifying documentation. Please respond to the clarification below the line at the bottom and electronically sign. The CDI & [facility] Coding staff will review the response and follow-up if needed. Please note: Queries are made part of the Legal Health Record. If you have any questions, please contact the author of this message via ITS. Dr. Michael Anthony Acute kidney injury is documented in Dr. Saunders's consult note and in Dr. Fraser's 05/12 progress note. History Risk factors/Other underlying illness: Patient was admitted for vasovagal syncopal episode and found to have a UTI and acute kidney injury. The patient has a history of hypertension, CAD and a mass in the right lung. Clinical Indicators: Decreased renal function. Patient presents with a BUN/CR and GFR of: 23/1.44/39 Patients baseline BUN/CR and GFR: Not documented but was 20/1.04/57 on discharge. Urinalysis: Hyaline casts 8, trace blood, postiive nitrite, large leukocyte esterase, bacteria occasional mucus rare, cloudy. Treatment: 0.9 normal saline at 75 ml/hour In your professional opinion, can you please clarify if the condition can be further specified? Acute Renal Failure with Acute Tubular Necrosis Acute Renal Failure with Renal Cortical Necrosis Acute Renal Failure with other specified pathological cause, please specify Acute Renal Failure with other cause, please specify Unable to determine Other, please specify acute renal failure - prerenal MTDD
--- NOTE | 2018-05-21 17:39 | CDI ---
Documentation Clarification Form Date: 05/21/2018 4:48:12 PM From: Tatiana Schwartz RN, CCDS Admit Date: 05/11/2018 4:19:00 PM Patient Name: Patti Rodríguez Visit Number: [id number] Discharge Date: 05/12/2018 8:16:00 PM ATTENTION: The Clinical Documentation Specialists (CDI) and [facility] Coding Staff appreciate your assistance in clarifying documentation. Please respond to the clarification below the line at the bottom and electronically sign. The CDI & [facility] Coding staff will review the response and follow-up if needed. Please note: Queries are made part of the Legal Health Record. If you have any questions, please contact the author of this message via ITS. Dr. Michael Anthony Pulmonary Consult: 05/10/18-05/12/18 Progress notes has acute urinary tract infection with sepsis. Acute kidney injury. 05/14/18 Still feel this was urinary tract infection with urine cultures previously positive for Escheria coli from 04/16/2018 and citrobacter Freundii from 05/09/18, with evidence of organ dysfunction like altered mental status, and acute kidney injury without meeting the SIRS criteria History/Risk Factors: Coronary Artery Disease, hypertension, Current every day smoker Clinical Indicators: Unresponsive episode on presentation she was nontoxic and well-hydrated and in no acute distress. she was alert and orientated x3. ED evaluation found evidence of a UTI. Vital signs on admission: 109/65 90 16 98.7 98% RA WBC 6.9; UA: Urine Nitrite -Positive, Leukocyte Esterase-Large: Urine culture Citrobacter freundii BUN 23, Creatinine 1.44 Blood cultures: No Growth after 144 hours Other clinical indicators: 04/16/18 Patient was hospitalized for urinary tract infection with sepsis Treatment: IV Fluid boluses of 2/L 0.9 NS Rocephin IV Macrobid PO Monitor CBC, Lytes, In your professional opinion, please clarify if these findings signify one of the following conditions, whether the condition is ruled in or ruled out? Sepsis ruled out Sepsis due to UTI POA Other, please specify Unable to determine Identify the (suspected) organism Link or clarify if there is associated (due to/with): Organ failure SIRS Criteria (2 or more of the following may indicate SIRS): -Temperature < 96.8F (36C) or > 101.0F (38.3C) -Heart Rate > 90 bpm -Respiratory Rate > 20 breaths/min or PaCO2 < 32 mmHg -White Blood Cell Count > 12,000 or < 4,000 cells/mm3 or > 10% bands -Lactate >2.0 mmol/L (>4.0 is equivalent to septic shock) (Last Revision: July 2017) UTI with no sepsis MTDD
== END 2018-05-12 20:16 | disposition home or self-care (01) | DRG 312 ==
LOC: EC 11:31 → EEVIPCON 18:59 → 3NMEDONC 18:59 → INTOOBSV 18:59 → OBSVTOIN 05-11 16:19
PROVIDERS: ADMIT Hospitalist; ATTEND Hospitalist
DX: R55 Syncope and collapse (principal); N17.9 Acute kidney failure, unspecified; F20.9 Schizophrenia, unspecified; N30.90 Cystitis, unspecified without hematuria; I11.9 Hypertensive heart disease without heart failure; R26.81 Unsteadiness on feet; F32.9 Major depressive disorder, single episode, unspecified; B96.89 Other specified bacterial agents as the cause of diseases classified elsewhere; E03.9 Hypothyroidism, unspecified; E11.9 Type 2 diabetes mellitus without complications; E78.5 Hyperlipidemia, unspecified; F17.210 Nicotine dependence, cigarettes, uncomplicated; G40.909 Epilepsy, unspecified, not intractable, without status epilepticus; I25.10 Atherosclerotic heart disease of native coronary artery without angina pectoris; I25.2 Old myocardial infarction; R79.1 Abnormal coagulation profile; R32 Unspecified urinary incontinence; R91.8 Other nonspecific abnormal finding of lung field; D64.9 Anemia, unspecified; Z79.02 Long term (current) use of antithrombotics/antiplatelets; Z79.84 Long term (current) use of oral hypoglycemic drugs; Z79.899 Other long term (current) drug therapy; Z95.5 Presence of coronary angioplasty implant and graft; Z86.73 Personal history of transient ischemic attack (TIA), and cerebral infarction without residual deficits; Z88.0 Allergy status to penicillin; Z91.018 Allergy to other foods; Z98.51 Tubal ligation status; Z82.49 Family history of ischemic heart disease and other diseases of the circulatory system
CPT/HCPCS: 36415; 70551; 71046; 71275; 74177; 80048; 80053; 81001; 82550; 82553; 82607; 82728; 82746; 83036; 83540; 83550; 83615; 83735; 84484; 85025; 85045; 85379; 85610; 85730; 87040; 87077; 87086; 87186; 93005; 94760; 96360; 96361; 96365; 99285

== ENCOUNTER 2018-05-15 09:35 | Emergency (ER) | payer MEDICARE, BC ==
[2018-05-15] MEDS ORDERED: SODIUM CHLORIDE 0.9% 500 ML 500 ML IV STA (09:38)
--- NOTE | 2018-05-15 10:25 | ED ---
General Adult HPI - General Chief complaint: Weakness Stated complaint: weakness Time Seen by Provider: 05/15/18 09:37 Source: patient, EMS, RN notes reviewed, old records reviewed Mode of arrival: EMS Limitations: no limitations - History of Present Illness Initial comments: 62-year-old female presents from assisted living facility for evaluation of generalized weakness. Patient has history of schizophrenia, she is normally alert and oriented 4 and ambulatory with a walker. According to staff patient had generalized weakness and difficulty with ambulation. Patient is alert and oriented. She denies any physical complaints per denies headache. Denies chest pain. Denies abdominal pain. No history nausea vomiting or diarrhea. - Related Data Home Medications Medication Instructions Recorded Confirmed Clopidogrel Bisulfate [Plavix] 75 mg PO DAILY 02/14/17 05/15/18 Isosorbide Mononitrate ER [Imdur] 30 mg PO DAILY 02/14/17 05/15/18 QUEtiapine [SEROquel] 100 mg PO HS 02/14/17 05/15/18 Solifenacin Succinate [Vesicare] 10 mg PO DAILY 02/14/17 05/15/18 carBAMazepine [TEGretol] 300 mg PO TID 02/14/17 05/15/18 risperiDONE [RisperDAL] 2 mg PO BID 02/14/17 05/15/18 Atorvastatin [Lipitor] 40 mg PO HS 03/05/18 05/15/18 Metoprolol Tartrate [Lopressor] 25 mg PO BID 03/05/18 05/15/18 Sertraline [Zoloft] 25 mg PO HS 03/05/18 05/15/18 Sertraline [Zoloft] 100 mg PO DAILY 03/05/18 05/15/18 metFORMIN HCL ER [Glucophage Xr] 500 mg PO HS 03/05/18 05/15/18 Acetaminophen Tab [Tylenol] 650 mg PO TID PRN 05/09/18 05/15/18 Cyanocobalamin (Vitamin B-12) 1,000 mcg PO DAILY 05/09/18 05/15/18 [Vitamin B-12] Diphenoxylate HCl/Atropine 1 tab PO TID PRN 05/09/18 05/15/18 [Lomotil 2.5-0.025 mg Tablet] LORazepam [Ativan] 1 - 2 mg PO TID PRN 05/09/18 05/15/18 Lisinopril [Zestril] 10 mg PO DAILY 05/09/18 05/15/18 Sennosides/Docusate Sodium 1 tab PO BID PRN 05/09/18 05/15/18 [Senna-S Laxative Tablet] Ferrous Sulfate [Feosol] 325 mg PO Q48H 05/15/18 05/15/18 Menthol-Zinc Oxide Oint 1 applic TOPICAL DIRECTED 05/15/18 05/15/18 [Calmoseptine Oint] Nitrofurantoin Monohyd/M-Cryst 100 mg PO BID 05/15/18 05/15/18 [Macrobid] Pantoprazole [Protonix] 40 mg PO DAILY 05/15/18 05/15/18 traZODone HCL [TraZODone HCl] 50 mg PO HS 05/15/18 05/15/18 Previous Rx's Medication Instructions Recorded Furosemide [Lasix] 40 mg PO MOWEFR #0 tab 05/12/18 Potassium Chloride [Klor-Con 20] 20 meq PO MOWEFR #0 05/12/18 Allergies Allergy/AdvReac Type Severity Reaction Status Date / Time cranberry AdvReac Unknown Verified 05/15/18 10:17 grapefruit AdvReac Itching Verified 05/15/18 10:17 Penicillins AdvReac Itching Verified 05/15/18 10:17 Review of Systems ROS Statement: Those systems with pertinent positive or pertinent negative responses have been documented in the HPI. ROS Other: All systems not noted in ROS Statement are negative. 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 hx includes:heart stent x1,tia,uti, pt stated in past took meds for thyroid",egd feb 2018- superficial ulcers; borderline dm, does not have sugars checked Last Myocardial Infarction Date:: N/A History of Any Multi-Drug Resistant Organisms: None Reported Past Surgical History: Heart Catheterization With Stent, Tubal Ligation Additional Past Surgical History / Comment(s): feb 2018 egd Past Anesthesia/Blood Transfusion Reactions: No Reported Reaction Date of Last Stent Placement:: unk Past Psychological History: Bipolar, Depression, Schizophrenia Smoking Status: Current every day smoker Past Alcohol Use History: None Reported Past Drug Use History: None Reported - Past Family History Mother Additional Family Medical History / Comment(s): in sleep Father Family Medical History: Myocardial Infarction ([place]) General Exam Limitations: no limitations General appearance: in no apparent distress, lethargic Head exam: Present: atraumatic, normocephalic Eye exam: Present: normal appearance, PERRL ENT exam: Present: mucous membranes dry Neck exam: Present: normal inspection. Absent: tenderness, meningismus Respiratory exam: Present: normal lung sounds bilaterally. Absent: respiratory distress Cardiovascular Exam: Present: normal rhythm, tachycardia GI/Abdominal exam: Present: soft. Absent: distended, tenderness Extremities exam: Present: normal inspection, normal capillary refill. Absent: pedal edema Neurological exam: Present: alert, oriented X3. Absent: motor sensory deficit Psychiatric exam: Present: flat affect Skin exam: Present: warm, dry, intact. Absent: cyanosis, diaphoretic Course Vital Signs 05/15/18 05/15/18 05/15/18 09:38 11:15 12:15 Temperature 99.2 F 99.3 F Pulse Rate 112 H 103 H 100 Respiratory 18 16 18 Rate Blood Pressure 104/46 101/63 105/67 O2 Sat by Pulse 99 93 L 95 Oximetry EKG Findings - EKG Comments: EKG Findings:: EKG: Sinus tachycardia, left atrial enlargement no ST segment changes, rate 112, VT interval 152, QRS duration 80, QTC 458. Medical Decision Making - Medical Decision Making 62 female presenting with generalized weakness. Patient from assisted living facility. Patient having no complaints in the emergency department. Workup reveals chest x-ray which is consistent with right upper lobe mass which was diagnosed on CAT scan approximately one week ago, there is also some concern for possible pneumonia. Patient has mildly elevated white blood cell count 10.6 , hemoglobin 8.1 which is relatively stable. Creatinine 1.46 from baseline 1. Lactic acid 3.1 mildly elevated. Urinalysis shows 12 white cells, few bacteria. Head CT negative for intracranial hemorrhage or mass effect. I did discuss case with the medical physician Dr. Anthony, he states that that time previous admission patient did not want any further evaluation or treatment for lung mass. I confirmed this with the patient she does not want evaluation or treatment of suspected lung mass. Her family is aware of this. After IV hydration patient continues to have no complaints. She is eager for discharge. She is alert and oriented and does not want any further testing or evaluation. Patient will be discharged in accordance with her wishes. - Lab Data Result diagrams: 05/15/18 10:12 05/15/18 10:12 Lab Results 05/15/18 05/15/18 05/15/18 Range/Units 10:12 10:12 10:12 WBC 10.6 (3.8-10.6) k/uL RBC 3.23 L (3.80-5.40) m/uL Hgb 8.1 L (11.4-16.0) gm/dL Hct 26.3 L (34.0-46.0) % MCV 81.4 (80.0-100.0) fL MCH 25.0 (25.0-35.0) pg MCHC 30.7 L (31.0-37.0) g/dL RDW 20.0 H (11.5-15.5) % Plt Count 138 L (150-450) k/uL Neutrophils % 85 % Lymphocytes % 6 % Monocytes % 6 % Eosinophils % 2 % Basophils % 0 % Neutrophils # 9.0 H (1.3-7.7) k/uL Lymphocytes # 0.6 L (1.0-4.8) k/uL Monocytes # 0.6 (0-1.0) k/uL Eosinophils # 0.2 (0-0.7) k/uL Basophils # 0.0 (0-0.2) k/uL Manual Slide Review Performed Large Platelets Present Hypochromasia Slight Anisocytosis Moderate Microcytosis Slight PT (9.0-12.0) sec INR (<1.2) APTT (22.0-30.0) sec Sodium 137 (137-145) mmol/L Potassium 4.3 (3.5-5.1) mmol/L Chloride 109 H (98-107) mmol/L Carbon Dioxide 19 L (22-30) mmol/L Anion Gap 9 mmol/L BUN 23 H (7-17) mg/dL Creatinine 1.46 H (0.52-1.04) mg/dL Est GFR (CKD-EPI)AfAm 44 (>60 ml/min/1.73 sqM) Est GFR (CKD-EPI)NonAf 38 (>60 ml/min/1.73 sqM) Glucose 235 H (74-99) mg/dL Plasma Lactic Acid Valerio (0.7-2.0) mmol/L Calcium 8.9 (8.4-10.2) mg/dL Magnesium 1.5 L (1.6-2.3) mg/dL Total Bilirubin 0.7 (0.2-1.3) mg/dL AST 152 H (14-36) U/L ALT 104 H (9-52) U/L Alkaline Phosphatase 122 (38-126) U/L Total Creatine Kinase 54 (30-135) U/L CK-MB (CK-2) 0.4 (0.0-2.4) ng/mL CK-MB (CK-2) Rel Index 0.7 Troponin I 0.025 (0.000-0.034) ng/mL Total Protein 6.0 L (6.3-8.2) g/dL Albumin 3.1 L (3.5-5.0) g/dL Urine Color Urine Appearance (Clear) Urine pH (5.0-8.0) Ur Specific Kite (1.001-1.035) Urine Protein (Negative) Urine Glucose (UA) (Negative) Urine Ketones (Negative) Urine Blood (Negative) Urine Nitrite (Negative) Urine Bilirubin (Negative) Urine Urobilinogen (<2.0) mg/dL Ur Leukocyte Esterase (Negative) Urine WBC (0-5) /hpf Urine WBC Clumps (None) /hpf Ur Squamous Epith Cells (0-4) /hpf Amorphous Sediment (None) /hpf Urine Bacteria (None) /hpf Hyaline Casts (0-2) /lpf Urine Mucus (None) /hpf 05/15/18 05/15/18 05/15/18 Range/Units 10:12 10:12 11:10 WBC (3.8-10.6) k/uL RBC (3.80-5.40) m/uL Hgb (11.4-16.0) gm/dL Hct (34.0-46.0) % MCV (80.0-100.0) fL MCH (25.0-35.0) pg MCHC (31.0-37.0) g/dL RDW (11.5-15.5) % Plt Count (150-450) k/uL Neutrophils % % Lymphocytes % % Monocytes % % Eosinophils % % Basophils % % Neutrophils # (1.3-7.7) k/uL Lymphocytes # (1.0-4.8) k/uL Monocytes # (0-1.0) k/uL Eosinophils # (0-0.7) k/uL Basophils # (0-0.2) k/uL Manual Slide Review Large Platelets Hypochromasia Anisocytosis Microcytosis PT 10.7 (9.0-12.0) sec INR 1.0 (<1.2) APTT 21.5 L (22.0-30.0) sec Sodium (137-145) mmol/L Potassium (3.5-5.1) mmol/L Chloride (98-107) mmol/L Carbon Dioxide (22-30) mmol/L Anion Gap mmol/L BUN (7-17) mg/dL Creatinine (0.52-1.04) mg/dL Est GFR (CKD-EPI)AfAm (>60 ml/min/1.73 sqM) Est GFR (CKD-EPI)NonAf (>60 ml/min/1.73 sqM) Glucose (74-99) mg/dL Plasma Lactic Acid Valerio 3.1 H* (0.7-2.0) mmol/L Calcium (8.4-10.2) mg/dL Magnesium (1.6-2.3) mg/dL Total Bilirubin (0.2-1.3) mg/dL AST (14-36) U/L ALT (9-52) U/L Alkaline Phosphatase (38-126) U/L Total Creatine Kinase (30-135) U/L CK-MB (CK-2) (0.0-2.4) ng/mL CK-MB (CK-2) Rel Index Troponin I (0.000-0.034) ng/mL Total Protein (6.3-8.2) g/dL Albumin (3.5-5.0) g/dL Urine Color Light Red Urine Appearance Cloudy H (Clear) Urine pH 5.5 (5.0-8.0) Ur Specific Kite 1.012 (1.001-1.035) Urine Protein Trace H (Negative) Urine Glucose (UA) Negative (Negative) Urine Ketones Negative (Negative) Urine Blood Negative (Negative) Urine Nitrite Negative (Negative) Urine Bilirubin Negative (Negative) Urine Urobilinogen <2.0 (<2.0) mg/dL Ur Leukocyte Esterase Moderate H (Negative) Urine WBC 12 H (0-5) /hpf Urine WBC Clumps Moderate H (None) /hpf Ur Squamous Epith Cells 2 (0-4) /hpf Amorphous Sediment Rare H (None) /hpf Urine Bacteria Few H (None) /hpf Hyaline Casts 63 H (0-2) /lpf Urine Mucus Occasional H (None) /hpf Disposition Clinical Impression: Lactic acidosis, Dehydration, Lung mass Disposition: HOME SELF-CARE Condition: Fair Is patient prescribed a controlled substance at d/c from ED?: No Referrals: Guido Duron MD [Primary Care Provider] - 1-2 days Time of Disposition: 12:59
[2018-05-15 10:38] LABS: Albumin 3.1 g/dL (3.5-5.0); Calcium 8.9 mg/dL (8.4-10.2); Magnesium 1.5 mg/dL (1.6-2.3); Potassium 4.3 mmol/L (3.5-5.1); Total Bilirubin 0.7 mg/dL (0.2-1.3)
--- NOTE | 2018-05-15 10:42 | XR ---
EXAMINATION TYPE: XR chest 2V DATE OF EXAM: 05/15/2018 COMPARISON: 05/09/2018 TECHNIQUE: PA and lateral views submitted. HISTORY: Shortness of breath FINDINGS: Right upper lobe lung mass noted. Diffuse interstitial pattern seen with basilar consolidation and sm all effusion. Heart remains enlarged. IMPRESSION: 1. Right upper lobe lung mass with diffuse interstitial pattern bilateral effusion and infiltrate. Co rrelate for CHF or atypical pneumonia. Malignancy within the lung mass in the differential diagnosis.
[2018-05-15 10:43] LABS: Prothrombin Time 10.7 sec (9.0-12.0)
[2018-05-15 10:46] LABS: Anisocytosis Moderate; Basophils % (A) 0 %; Eosinophils # (A) 0.2 k/uL (0-0.7); Eosinophils % (A) 2 %; HCT 26.3 % (34.0-46.0); HGB 8.1 gm/dL (11.4-16.0); Hypochromasia Slight; Lymphocytes # (A) 0.6 k/uL (1.0-4.8); Lymphocytes % (A) 6 %; MCHC 30.7 g/dL (31.0-37.0); MCV 81.4 fL (80.0-100.0); Mean Platelet Volume 10.1; Microcytosis Slight; Monocytes # (A) 0.6 k/uL (0-1.0); Monocytes % (A) 6 %; Neutrophils % (A) 85 %; Platelet Count 138 k/uL (150-450); RBC 3.23 m/uL (3.80-5.40); WBC 10.6 k/uL (3.8-10.6)
--- NOTE | 2018-05-15 10:53 | CT ---
EXAMINATION TYPE: CT brain wo con DATE OF EXAM: 05/15/2018 COMPARISON: 04/16/2018 HISTORY: Weakness CT DLP: 1083.[address] of the brain was performed. The ventricles, basal cisterns and sulci overlying the cerebral convexities demonstrate mild enlargem ent. There is no evidence for intracranial hemorrhage or sulcal effacement. There is decreased attenuation about the periventricular white matter and deep white matter of both c erebral hemispheres, compatible with chronic small vessel ischemia. Differential diagnosis does inclu de demyelination. No mass effects are seen.No midline shift. Osseous calvarium is intact. If symptoms persist consider MRI. IMPRESSION: 1. Age related atrophic and chronic small vessel ischemic change without acute intracranial process s een at this time.
[2018-05-15 11:02] LABS: Creatine Kinase MB 0.4 ng/mL (0.0-2.4); Troponin I 0.025 ng/mL (0.000-0.034)
[2018-05-15 11:26] LABS: Partial Thromboplastin Time 21.5 sec (22.0-30.0)
[2018-05-15 11:37] LABS: Large Platelets Present
[2018-05-15 11:47] LABS: Amorphous Sediment,Urine Rare /hpf; Appearance,Urine Cloudy (Clear); Bacteria,Urine Few /hpf; Bilirubin,Urine Negative (Negative); Blood,Urine Negative (Negative); Color,Urine Light Red; Glucose,Urine (UA) Negative (Negative); Hyaline Casts,Urine 63 /lpf (0-2); Ketones,Urine Negative (Negative); Leukocyte Esterase,Urine Moderate (Negative); Mucus,Urine Occasional /hpf; Nitrite,Urine Negative (Negative); PH, Urine 5.5 (5.0-8.0); Protein,Urine Trace (Negative); Specific Gravity,Urine 1.012 (1.001-1.035); Squamous Epithelial Cell,Urine 2 /hpf (0-4); Urobilinogen,Urine <2.0 mg/dL (<2.0); WBC,Urine 12 /hpf (0-5)
[2018-05-15] MEDS ORDERED: LEVOFLOXACIN 500MG-D5W PMX 500 MG in DEXTROSE/WATER 1 100ML.BAG IVPB STA (12:16)
[2018-05-15] MEDS ORDERED: SODIUM CHLORIDE 0.9% 1,000 ML IV SCH (12:30)
[2018-05-15 15:19] VITALS: BP 109/55; PULSE 94; RESP 18; TEMP 98.7
== END 2018-05-15 15:17 | disposition home or self-care (01) ==
LOC: EC 09:35
DX: E86.0 Dehydration (principal); E87.2 Acidosis; R91.8 Other nonspecific abnormal finding of lung field; D72.829 Elevated white blood cell count, unspecified; I25.10 Atherosclerotic heart disease of native coronary artery without angina pectoris; E11.9 Type 2 diabetes mellitus without complications; E78.5 Hyperlipidemia, unspecified; I10 Essential (primary) hypertension; I25.2 Old myocardial infarction; G40.909 Epilepsy, unspecified, not intractable, without status epilepticus; F20.9 Schizophrenia, unspecified; F31.9 Bipolar disorder, unspecified; F17.200 Nicotine dependence, unspecified, uncomplicated; Z86.73 Personal history of transient ischemic attack (TIA), and cerebral infarction without residual deficits; Z79.01 Long term (current) use of anticoagulants; Z79.84 Long term (current) use of oral hypoglycemic drugs; Z79.899 Other long term (current) drug therapy; Z91.018 Allergy to other foods; Z88.0 Allergy status to penicillin; Z95.5 Presence of coronary angioplasty implant and graft
CPT/HCPCS: 36415; 93005; 80053; 82550; 82553; 83605; 83735; 84484; 85025; 85610; 85730; 81001; 87040; 71046; 70450; 99285; 96365; 96361; J1956

== ENCOUNTER → 2018-05-23 | Outpatient (CLI) | payer MEDICARE, BC ==
--- NOTE | 2018-05-25 08:00 | PE ---
EXAMINATION TYPE: PET CT fusion skull to thigh DATE OF EXAM: 05/24/2018 CLINICAL HISTORY: 62-year-old female solitary pulmonary nodule, multiple nodules of the lung, initial staging TECHNIQUE: Following the intravenous administration of 10.17 mCi of F-18 FDG, whole body images are performed from the skull base to the midthigh. Images are reviewed on the computer in the coronal, axial, and sagittal planes. Reconstructed rotating images are created on independent workstation and reviewed on the computer. A localization and attenuation correction CT is performed in conjunction with the PET scan. Glucose level: 123 mg/dL Injection site: Left AC COMPARISON: CT chest 05/09/2018 and abdomen pelvis 05/11/2018. FINDINGS: PET: Physiologic FDG uptake within the neck. There is focal intense uptake along the patient's left arm. This uptake seems to be following promine nt creases in the patient's skin and is most compatible with the injection site. A few scattered prominent but nonenlarged peritracheal lymph nodes measure up to 8 mm and show no dis crete FDG uptake. Peripheral right upper lobe nodule measures 1.7 cm with intense uptake, max SUV 8.9. Right midlung nodule along the fissure measures 1.5 cm and is unchanged from 05/11/2018 and shows no d iscrete FDG uptake. Otherwise, physiologic FDG uptake within the chest. Mild heterogeneous uptake throughout the liver likely normal variation. Average liver SUV 3.7. Dotted intense uptake in a linear distribution along the course of the bilateral ureters. Variable moderate to intense segmental FDG uptake throughout the colon and rectum likely physiologic. Otherwise, no abnormal uptake identified in the abdomen or pelvis. ATTENUATION CORRECTION CT: Scattered mild mucosal thickening right ethmoid air cells and left maxillary sinus. Mastoid air cells well pneumatized. No cervical lymphadenopathy. Heart mildly enlarged without pericardial effusion. Coronary vessel calcifications are present. Aort a normal caliber with mild to moderate atelectatic arch calcifications and conventional arch vessel b ranching anatomy. Small left pleural effusion. Strandy areas of atelectasis. Suspect underlying emph ysema. Cholelithiasis without abnormal gallbladder distention. Moderate atherosclerotic calcifications throu ghout the abdominal aorta and iliac arteries with mild fusiform dilatation of the infrarenal abdomina l aorta but no significant ectasia or aneurysm. No dilated small bowel, free fluid, or free air. No m esenteric or retroperitoneal lymphadenopathy. Mild overall stool burden. Some metallic surgical mater ial near the cecum. Bladder nondistended. Uterus and ovaries are visualized. No abnormal fluid collection in the pelvis o r pelvic lymphadenopathy. Bones: Degenerative changes at the pubic symphysis and hips and SI joints as well as the lower lumbar spine. Endplate spondylosis mid to lower thoracic spine. IMPRESSION: 1. Intense uptake within the 1.7 cm right upper lobe nodule compatible with primary neoplasm. No evid ence for metastatic disease. 2. The 1.5 cm right mid lung nodule shows no discrete hypermetabolism. Benign etiology is suggested b ut this should be followed by CT as low-grade neoplasm or other etiology such as carcinoid is not exc luded at this time. 3. Incidental: Mild cardiomegaly, CAD, small left pleural effusion, and cholelithiasis.
== END | disposition home or self-care (01) ==
LOC: RADPETMAIN 10:33
PROVIDERS: ATTEND Internal Medicine Critical Care Medicine
DX: R91.8 Other nonspecific abnormal finding of lung field (principal)
CPT/HCPCS: 78815; A9552